=== PATIENT | male | born 1995 | race Caucasian/White ===

== ENCOUNTER 2023-05-21 13:28 | Outpatient (AMB) | payer OTHER, SELFPAY ==
--- NOTE | 2023-05-21 13:36 | MHC.PC.OV ---
Vital Signs 05/21/23 13:37 Height 5 ft 10 in Weight 144 lb BMI 20.7 BP 98/64 Blood Pressure Location Lt brachial Position Sitting Respiration 14 Pulse 81 Pulse Source Pulse Oximeter Pulse Oximetry (%) 99 Oxygen Delivery Method Room Air Intake Visit Reasons: CPE Intake Note: Patient is here for his physical today. Patient traveled to [place] saw a social welfare administrator in [place] in October 2022 and the social welfare administrator who stated he had scabies, the doctor prescribed a medication, dermabel 0.05% and the rash went away. Patient reports he has experienced allergies and itching rash again since January Upon return from [place]. Patient is requesting referral for neurologist. Patient reports the neurologist in [place] gave medications after finding something in his brain. The medication given is essitalopram 10mg film tablets propranolol 40mg tablets Sulpiride 50mg. ?The neurologist informed him he would need to see a neurologist every 3-6 months. Patient is requesting blood work- standard blood work plus vitamin levels. Patient reports he went to child life specialist and he was positive for pollen, dust, some trees, some animals. He was recommended to get shots. This was just an FYI. [employer] Required: No Accompanied by: Self / Same As Patient Allergies No Known Allergies Allergy (Verified 05/21/23 13:53) Tobacco use date assessed: 05/21/23 Dental Screening Dental Screen Date: 05/21/23 Did you have a dental visit in the last 12 months?: Yes Did you have a dental problem in the last 6 months where you did not have access to dental care?: No Was dental information given to patient?: Patient has dentist HPI CPE HPI Details 28 y/o male presents today for an extended exam but pt has acute issues he would like to discuss. Was recently in [place] from November to January. Complaints as above. Pt reports he had seen a neurologist in [place] and neurologist had found some atrophy in his brain. He was given escitalopram 10mg, propranolol 40mg and sulpiride 50mg. They had recommended him to f/u with Neurology. He reports ongoing tremors bilateral hands. He reports excessive fatigue. Pt has complaints of an ongoing rash. [facility] Medical History No pertinent past medical history Surgical History History of sleeve gastrectomy Family History (Updated 05/21/23 @ 13:54 by Dorita Wyatt CMA) Mother High blood pressure Father High blood pressure Diabetes Maternal Grandmother High blood pressure High cholesterol Paternal Grandmother High blood pressure High cholesterol Maternal Grandfather High blood pressure High cholesterol Cardiovascular disease Paternal Grandfather High blood pressure High cholesterol Social History (Updated 05/21/23 @ 13:56 by Dorita Wyatt CMA) Household Members: Friend(s) Housing: House 75 years or older and lives alone: No Alcohol intake: never Patient Tobacco Use Status: Never used Tobacco e-Cigarette/Vaping Use: Never Used Second Hand Smoke Exposure: No service: No Current occupational status: employed Current occupation: [employer] Current occupational exposures/hazards: No Sexual orientation: Unable to collect Gender identity: Unable to collect Cognitive needs: No Hearing needs: No Vision needs: No Questionnaire PHQ-9 Over the last 2 weeks, how often have you been bothered by any of the following problems? 1. Little interest or pleasure in doing things: not at all 2. Feeling down, depressed, or hopeless: not at all 3. Trouble falling or staying asleep, or sleeping too much: more than half the days 4. Feeling tired or having little energy: several days 5. Poor appetite or overeating: not at all 6. Feeling bad about yourself - or that you are a failure or have let yourself or your family down: not at all 7. Trouble concentrating on things, such as reading the newspaper or watching television: not at all 8. Moving or speaking so slowly that other people could have noticed. Or the opposite - being so fidgety or restless that you have been moving around a lot more than usual: not at all 9. Thoughts that you would be better off or of hurting yourself in some way: not at all Total score: 3 Depression Screening Interpretation: Negative Depression Screening Done: Yes 27314 - PHQ-9 Billing: Yes Source: Developed by Drs. Jacques Cleaning, Lavonne Colon, Marquis Black and colleagues, with an educational mario from [employer]. Thrive Questionnaire Date Thrive assessed: 10/29/22 CARO-7 AMB Questionnaire CARO-7 Date CARO - 7 assessed: 05/21/23 Feeling nervous, anxious, or on edge: 0 = Not at all Not being able to stop or control worryin = Not at all Worrying too much about different things: 1 = Several days Trouble relaxin = Not at all Being so restless that it is hard to sit still: 0 = Not at all Becoming easily annoyed or irritable: 1 = Several days Feeling afraid as if something awful might happen: 0 = Not at all Total CARO-7 score (0-4 normal; 5-9 mild; 10-14 moderate; 15-21 severe): 2 Source: Developed by Drs. Jacques Cleaning, Lavonne Colon, Marquis Black and colleagues, with an educational mario from [employer]. CARO-7 Assessment Billing CARO-7 Assessment Tool: CARO-7 Assessment 39825 Review of Systems Const Reports fatigue and Denies headache(s) ENT Denies dizziness and Denies headache(s) Card Denies dyspnea Resp Denies cough, Denies dyspnea, Denies wheezing and Denies other (shortness of breath) Musc Denies numbness and Denies tingling Skin/Breast Reports rash Neuro Denies dizziness, Denies headache(s), Denies numbness, Denies tingling and Reports tremor(s) Psych Denies anxiety and Denies depression Endo Reports fatigue Aller/Immun Denies wheezing Physical exam (Primary Care) Vital Signs: Last Vital Signs Pulse 81 05/21/23 13:37 Resp 14 05/21/23 13:37 BP 98/64 05/21/23 13:37 Pulse Ox 99 05/21/23 13:37 Oxygen Delivery Method Room Air 05/21/23 13:37 BMI result Body Mass Index 20.7 Tobacco/Smoking Status: Tobacco use Status Tobacco use date assessed 05/21/23 05/21/23 13:54 Patient Tobacco Use Status Never used Tobacco 05/21/23 13:56 e-Cigarette/Vaping Use Never Used 05/21/23 13:56 PHQ-9: PHQ-9 Score PHQ-9: Total score 3 05/21/23 14:00 Depression Screening Interpretation: Negative Thrive Assessment: Date of Thrive Assessment Date Thrive assessed 10/29/22 05/21/23 13:54 Const General: well developed; No acute distress Nutritional Appearance: well nourished Orientation/consciousness: patient oriented x3 HENMT Head: Yes normocephalic and Yes atraumatic Eyes General: appearance normal, both eyes and all related structures Pupils: Equal, round and reactive pupils present EOM: EOMs intact bilaterally Resp Effort & Inspection: normal respiratory effort Neuro General: patient oriented x3 and gait normal Cranial nerves: Yes Equal, round and reactive pupils present Psych Affect: normal affect Assessment and Plan Assessment & Plan (1) Tremor: Code(s): R25.1 - Tremor, unspecified Plan: Fine?resting?tremor No?other?focal?neurologic?deficits Patient?notes?recent?brain?imaging?in?[place]?showing?cerebral?atrophy. Referred?to?neurology Check?head?CT Will?refill?propranolol (2) Fatigue: Code(s): R53.83 - Other fatigue Plan: Check?labs (3) Depression: Code(s): F32.A - Depression, unspecified Plan: Patient?had?been?on?escitalopram?and?we?will?continue?the (4) Rash: Code(s): R21 - Rash and other nonspecific skin eruption Plan: Rash?over?much?of?patient's?body?including?palms?of?hands?and?interdigital?webbing. Probable?scabies Will?give?him?a?script?for?permethrin Referred?to?dermatology Orders: Orders Comprehensive [place]. Panel Fast Today Z00.00 - Encounter for general adult medical examination without abnormal findings TSH reflex Free T4 Today Z00.00 - Encounter for general adult medical examination without abnormal findings Syphilis Screen Today Z11.3 - Encounter for screening for infections with a predominantly sexual mode of transmission Hepatitis B,C Profile Today Z11.3 - Encounter for screening for infections with a predominantly sexual mode of transmission CT head/brain wo IV con Today R25.1 - Tremor, unspecified Complete Blood Count Auto Diff Today Z00.00 - Encounter for general adult medical examination without abnormal findings Lipid Panel Today Z00.00 - Encounter for general adult medical examination without abnormal findings Microalbumin, Random (w Creat) Today I10 - Essential (primary) hypertension UA and rflx microscopic Today Z00.00 - Encounter for general adult medical examination without abnormal findings Vitamin B12 and Folate Today E53.8 - Deficiency of other specified B group vitamins CT NG by PCR Today Z11.3 - Encounter for screening for infections with a predominantly sexual mode of transmission HIV Ab/Ag Today Z11.3 - Encounter for screening for infections with a predominantly sexual mode of transmission Vitamin D 25-OH Total Today E55.9 - Vitamin D deficiency, unspecified Referrals Neurology Referral G31.9 - Degenerative disease of nervous system, unspecified, R25.1 - Tremor, unspecified Dermatology Referral R21 - Rash and other nonspecific skin eruption Medications: New permethrin 5% apply second treatment 14 days after first treatment if scabies remain 1 appl topical Q14D 60 grams 1RF propranolol 40 mg PO BID 30 days 60 tabs 1RF escitalopram oxalate 10 mg PO DAILY 30 days 30 tabs 2RF Coding Level of Care Code Est Pt Level 4 (60649) Diagnoses Tremor R25.1 Fatigue R53.83 Depression F32.A Rash R21 Additional Codes CARO-7 Assessment Billing - CARO-7 Assessment Tool: CARO-7 Assessment 72117 ([id number])
[2023-05-21 13:37] VITALS: BP 98/64; PULSE 81; RESP 14; O2SAT 99; BMI 20.7
== END 2023-05-21 14:27 | disposition home or self-care (01) ==
PROVIDERS: PCP Family Medicine; Visit Provider Family Medicine
DX: R25.1 Tremor, unspecified (principal); R53.83 Other fatigue; F32.A Depression, unspecified; R21 Rash and other nonspecific skin eruption
CPT/HCPCS: 99214

== ENCOUNTER 2023-06-05 13:07 | Outpatient (REF) | payer OTHER, SELFPAY ==
--- NOTE | ~2023-06-05 | CT_ITS ---
EXAMINATION: CT HEAD WITHOUT CONTRAST CLINICAL INFORMATION: Tremor. COMPARISON: None. TECHNIQUE: Contiguous axial imaging was performed from the skullbase to vertex without intravenous administration of contrast. This CT examination was performed using dose optimization techniques as appropriate, variously including the following: *Automated exposure control *Adjustment of mA and/or kV according to patient size (this includes techniques or standardized protocols for targeted exams where dose is matched to indication/reason for exam; i.e. extremities or head) *Use of iterative reconstruction technique DLP: 881 mGy-cm. FINDINGS: There is no evidence of acute intracranial hemorrhage or territorial infarction. No abnormal mass effect or midline shift is seen. No extra-axial fluid collections are identified. There is moderate diffuse supratentorial brain parenchymal volume loss for patient age with concordant ex vacuo dilatation of the lateral and third ventricles. There is no abnormal attenuation within the brain parenchyma. The osseous structures and soft tissues are normal. The mastoid air cells and visualized portions of the paranasal sinuses are well aerated. CT/CT head/brain wo IV con IMPRESSION: No acute intracranial pathology. Moderate supratentorial brain parenchymal volume loss for patient age with concordant ex vacuo dilatation of the ventricles.
== END 2023-06-05 13:08 | disposition home or self-care (01) ==
LOC: HO.CT 13:07
PROVIDERS: Visit Provider Family Medicine
DX: R25.1 Tremor, unspecified (principal)
CPT/HCPCS: 70450

== ENCOUNTER 2023-06-17 11:27 | Outpatient (REF) | payer OTHER, SELFPAY ==
[2023-06-17 14:55] LABS: MANUAL DIFF FLAG NO
[2023-06-17 15:10] LABS: Basophils Percent Auto 0.7 % (0-2); Eosinophils Absolute Auto 0.2 X10*3/uL (0.0-0.4); Eosinophils Percent Auto 2.5 % (0-4); Hematocrit 44.3 % (42.0-52.0); Hemoglobin 14.4 g/dl (14.0-18.0); Imm Gran Abs Auto 0.01 X10*3/uL (0.00-0.03); Imm Gran Pct Auto 0.2 % (0.0-0.4); Lymphocytes Absolute Auto 2.2 X10*3/uL (1.2-4.9); Lymphocytes Percent Auto 36.6 % (20-40); Mean Corpuscular HGB Conc 32.5 g/dl (31.0-36.0); Mean Corpuscular Hemoglobin 27.4 pg (27.0-33.0); Mean Corpuscular Volume 84.4 fL (80.0-98.0); Mean Platelet Volume 10.4 fL (9.4-12.4); Monocytes Absolute Auto 0.6 X10*3/uL (0.1-1.2); Monocytes Percent Auto 9.7 % (2-11); Neutrophils Percent Auto 50.3 % (45-73); Platelet Count 268 X10*3/uL (160-400); Red Blood Count 5.25 X10*6/uL (4.60-5.80); Red Cell Distribution Width 13.6 % (11.0-16.0)
[2023-06-17 15:15] LABS: Appearance Urine Clear; Color Urine Yellow; Glucose Urine UA Negative (Negative); Leukocyte Esterase Urine Negative (Negative); Nitrite Urine Negative (Negative); PH 8.5 (5.0-9.0); UMIC TRIGGER UA YES; Urine Blood Small (1+) (Negative); Urine Ketones Negative (Negative); Urine Protein Negative (Neg-Trace)
[2023-06-17 15:18] LABS: Bacteria Urine None Seen (None Seen); Hyaline Casts Urine 0-2 /LPF (0-2); Squamous Epithelial Cell Urine 0-2 /HPF (0-2); WBC Urine 0-5 /HPF (0-5)
[2023-06-17 15:35] LABS: Alanine Aminotransferase 8 U/L (0-40); Albumin Level 4.7 g/dL (3.5-5.0); Alkaline Phosphatase 53 U/L (39-117); Anion Gap 13 (12-20); Aspartate Amino Transferase 18 U/L (5-37); Blood Urea Nitrogen 12 mg/dL (9-16); Calcium 10.2 mg/dL (8.4-10.2); Carbon Dioxide 27 mmol/L (22-29); Chloride 100 mmol/L (96-108); Cholesterol 142 mg/dL (<200); Estimated Glomerular Filt Rate > 60; Glucose Fasting 78 mg/dL (60-99); HDL Cholesterol 50 mg/dL (>40); LDL Cholesterol Calculated 77 mg/dL (<100); Potassium 4.2 mmol/L (3.3-5.1); Sodium 136 mmol/L (135-145); Total Protein 8.3 g/dL (6.5-8.0); Triglycerides 77 mg/dL (<150)
[2023-06-17 15:48] LABS: TSH reflex Free T4 1.84 uIU/mL (0.32-4.0); Vitamin D 25-OH Total 52.7 ng/mL (>30)
[2023-06-17 15:56] LABS: Folate 9.2 ng/mL (> or = 4.0); Vitamin B12 375 pg/mL (200-900)
[2023-06-17 16:19] LABS: Bilirubin Total 0.8 mg/dL (0.0-1.0)
[2023-06-17 16:22] LABS: Creatinine Urine 44.36 mg/dL; Microalbumin Urine < 5.0 mg/L
[2023-06-18 08:04] LABS: Syphilis Screen Reactive (Nonreactive)
[2023-06-18 08:12] LABS: HBS Num1 10.74 mIU/mL (0-7.99); HBc Num1 0.11 S/CO (0.00-0.79); HBsAGNum1 0.32 S/CO (0.00-0.99); HIV AB/AG Nonreactive (Nonreactive); HIV Num 1 0.08 S/CO (0.00-0.99); Hepatitis B Core Antibody Nonreactive (Nonreactive); Hepatitis B Surface Antigen Negative (Negative); ~HepC Num1 1.02 S/CO (0.00-0.79); ~Hepatitis C Antibody Reactive (Nonreactive)
[2023-06-18 10:46] LABS: HBS Num3 10.34 mIU/mL (0-7.99); ~Hepatitis B Surface Antibody GRAYZONE (Nonreactive)
[2023-06-23 15:02] LABS: RPR Quantitative Reactive 1:16 (Nonreactive)
[2023-06-23 15:03] LABS: T.Pallidum Particle Agg Test Reactive (Nonreactive)
== END 2023-06-17 11:28 | disposition home or self-care (01) ==
LOC: HO.WFDLDS 11:27
PROVIDERS: Visit Provider Family Medicine
DX: Z00.00 Encounter for general adult medical examination without abnormal findings (principal); Z11.3 Encounter for screening for infections with a predominantly sexual mode of transmission; Z11.4 Encounter for screening for human immunodeficiency virus [HIV]; E55.9 Vitamin D deficiency, unspecified; I10 Essential (primary) hypertension; E53.8 Deficiency of other specified B group vitamins
CPT/HCPCS: 36415; 80053; 80061; 81001; 81003; 82043; 82306; 82570; 82607; 82746; 84443; 85025; 86592; 86704; 86706; 86780; 86803; 87340; 87389

== ENCOUNTER 2023-06-30 11:35 | Outpatient (AMB) | payer OTHER, SELFPAY ==
[2023-06-30 11:58] VITALS: BP 125/75; PULSE 71; O2SAT 100; BMI 20.9
--- NOTE | 2023-06-30 11:58 | MHC.PC.OV ---
Vital Signs 06/30/23 11:58 Height 5 ft 10 in Weight 146 lb BMI 20.9 BP 125/75 Blood Pressure Location Lt brachial Position Sitting Pulse 71 Pulse Source Pulse Oximeter Pulse Oximetry (%) 100 Intake Visit Reasons: Extended exam with f/u labs and health maint. Intake Note: Patient is here for physical today. Allergies No Known Allergies Allergy (Verified 06/30/23 11:59) Tobacco use date assessed: 05/21/23 HPI Extended exam with f/u labs and health maint. HPI Details 28 y/o male presents for an extended exam with f/u labs and health maintenance. Labs were drawn 06/17/23. Reviewed labs with pt. Triglycerides 77. TC 142. LDL 77. HDL 50. Pt had complaints of fine resting tremor. Positive for T.pallidum. [facility] Medical History No pertinent past medical history Surgical History History of sleeve gastrectomy Family History (Updated 05/21/23 @ 13:54 by Dorita Wyatt CMA) Mother High blood pressure Father High blood pressure Diabetes Maternal Grandmother High blood pressure High cholesterol Paternal Grandmother High blood pressure High cholesterol Maternal Grandfather High blood pressure High cholesterol Cardiovascular disease Paternal Grandfather High blood pressure High cholesterol Social History (Updated 05/21/23 @ 13:56 by Dorita Wyatt CMA) Household Members: Friend(s) Housing: House 75 years or older and lives alone: No Alcohol intake: never Patient Tobacco Use Status: Never used Tobacco e-Cigarette/Vaping Use: Never Used Second Hand Smoke Exposure: No service: No Current occupational status: employed 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 Jacques Cleaning, Lavonne Colon, Marquis Black and colleagues, with an educational mario from [employer]. Review of Systems Const Denies chills, Denies fatigue, Denies fever(s), Denies headache(s) and Denies weakness Eyes Denies change in vision ENT Denies dizziness, Denies headache(s), Denies hearing loss, Denies nasal congestion, Denies sinus pain, Denies sinus pressure and Denies sore throat Card Denies chest pain, Denies lightheadedness, Denies dyspnea and Denies other (palpitations) Resp Denies cough, Denies dyspnea and Denies wheezing GI Denies abdominal pain, Denies melena, Denies hematochezia, Denies change in bowel habits, Denies dyspepsia and Denies nausea Denies hematuria and Denies dysuria Musc Denies abnormal gait, Denies myalgias, Denies arthralgias, Denies numbness and Denies tingling Skin/Breast Denies rash, Denies unusual bruising and Denies wounds Neuro Denies abnormal gait, Denies dizziness, Denies headache(s), Denies memory loss, Denies numbness, Denies Sensory deficit (Neuro), Denies tingling and Denies weakness Psych Denies anxiety, Denies depression and Denies memory loss Endo Denies cold intolerance, Denies fatigue, Denies heat intolerance, Denies polydipsia and Denies polyuria Denis/Lymph Denies easy bleeding and Denies easy bruising Aller/Immun Denies wheezing Physical exam (Primary Care) Vital Signs: Last Vital Signs Pulse 71 06/30/23 11:58 BP 125/75 06/30/23 11:58 Pulse Ox 100 06/30/23 11:58 BMI result Body Mass Index 20.9 Tobacco/Smoking Status: Tobacco use Status Tobacco use date assessed 05/21/23 06/30/23 12:02 Patient Tobacco Use Status Never used Tobacco 06/30/23 12:02 e-Cigarette/Vaping Use Never Used 06/30/23 12:02 Thrive Assessment: Date of Thrive Assessment Date Thrive assessed 10/29/22 06/30/23 12:02 Const General: no acute distress, well developed, alert and awake Nutritional Appearance: well nourished Orientation/consciousness: patient oriented x3 HENMT Head: Yes normocephalic and Yes atraumatic Ears: hearing grossly normal bilaterally and TM's normal bilaterally General nose exam: Normal external nose present and Normal nares present Mouth: Normal oral and palatal mucosa present and moist mucous membranes Teeth and gingiva: dentition normal Throat: Yes posterior oropharynx normal Eyes General: appearance normal, both eyes and all related structures Pupils: Equal, round and reactive pupils present and Pupil accommodation reflex normal EOM: EOMs intact bilaterally Neck Neck: Yes normal visual inspection, Yes no lymphadenopathy and Yes trachea midline Thyroid: Thyroid normal Carotids: no bruits Lymphatic: no lymphadenopathy noted Chest Chest palpation & inspection: normal inspection of the chest Resp Effort & Inspection: normal respiratory effort Auscultation: clear to auscultation bilaterally Cardio Rate: regular rate Rhythm: regular rhythm Heart sounds: S1 normal heart sound present, S2 normal heart sound present, no gallops, no murmurs and no rubs Bruits: no abdominal aortic bruits and no carotid bruits GI Palpation (GI): No Abdominal aortic bruit present, Soft to palpation, nontender, No hepatosplenomegaly present and No Rebound tenderness present Auscultation: normal bowel sounds General: Yes no CVA tenderness Back/Spine/Pelvis Back: no CVA tenderness Cervical Spine: cervical ROM normal and No Cervical spine tenderness Thoracic/Lumbar Spine: thoraco-lumbar ROM normal, No pain with thoraco-lumbar ROM, No thoracic spinal tenderness and No lumbar spinal tenderness Skin Lesions: no lesions Rashes: no rashes Trauma: no lacerations or abrasions Wounds: no wounds Nails: normal Neuro General: patient oriented x3 Cranial nerves: Yes Equal, round and reactive pupils present Cognition (Neuro): normal cognition Gait exam (Neuro): Normal gait present Motor exam (neuro): 5/5 motor strength present throughout Sensory Exam: No Sensory deficit (Neuro) Deep tendon reflexes (DTR's): Right patellar reflex intensity grade: 2+ and Left patellar reflex intensity grade: 2+ Extrem General: Yes normal to inspection and No edema Psych Appearance: grossly normal Affect: normal affect Attitude: cooperative Thought process: Normal thought process present Assessment and Plan Assessment & Plan (1) Syphilis (acquired): Code(s): A53.9 - Syphilis, unspecified Plan: RPR?positive Patient?has?an?appointment?with?infectious?disease?tomorrow. (2) Tremor: Code(s): R25.1 - Tremor, unspecified Plan: Patient?has?tremor?and?head?CT?showed?volume?loss. As?above,?patient?also?has?positive?RPR?and?concern?for?neurologic?symptoms Has?appointment?with?infectious?disease?and?also?has?an?appointment?with?Neurology. (3) Hepatitis C infection: Code(s): B19.20 - Unspecified viral hepatitis C without hepatic coma Plan: Hep?C?positive. He?is?referred?to?Gastroenterology?though?he?has?not?heard?back?from?them?yet.??I?gave?him?their?phone?number (4) Adult general medical exam: Code(s): Z00.00 - Encounter for general adult medical examination without abnormal findings Plan: 28-year-old?male?presents?for?an?extended?exam Coding Level of Care Code Est Pt Level 4 (81199) Diagnoses Syphilis (acquired) A53.9 Tremor R25.1 Hepatitis C infection B19.20 Adult general medical exam Z00.00
== END 2023-06-30 12:44 | disposition home or self-care (01) ==
PROVIDERS: PCP Family Medicine; Visit Provider Family Medicine
DX: A53.9 Syphilis, unspecified (principal); R25.1 Tremor, unspecified; B19.20 Unspecified viral hepatitis C without hepatic coma; Z00.00 Encounter for general adult medical examination without abnormal findings
CPT/HCPCS: 99214

== ENCOUNTER 2023-07-01 13:09 | Outpatient (AMB) | payer OTHER, SELFPAY ==
[2023-07-01 13:15] VITALS: PULSE 84; O2SAT 99; BMI 21.4
--- NOTE | 2023-07-01 13:15 | A.OFFVIS_ITS ---
Intake Vital Signs 3 07/01/23 13:15 Height 5 ft 10 in Weight 149 lb BMI 21.4 Pulse 84 Pulse Source Pulse Oximeter Pulse Oximetry (%) 99 Intake Visit Reasons: [place] [place]ph[place],unpecified Allergies No Known Allergies Allergy (Verified 07/01/23 13:18) HPI [place] [place]philis,unpecified 2 HPI0 Details He presents with positive syphilis titer at 1:16 on 06/17. I discussed with Sophia of [facility] and there is no prior titer. He denies prior syphilis but says had rash for about a year in [place]. He has only lip sore now. He describes leg numbness/?neuropathy to PCP and had CT scan which showed some volume loss so there was concern over neurosyphilis. He has no hearing loss or visual changes. He is HIV negative but Hepatitis C positive and Hepatitis B antibody slightly reactive. He is interested in Prep. [facility] Medical History (Updated 07/01/23 @ 16:55 by Elyssa Cruz MD) Encounter for pre-exposure prophylaxis for HIV No pertinent past medical history Surgical History History of sleeve gastrectomy Family History Mother High blood pressure Father High blood pressure Diabetes Maternal Grandmother High blood pressure High cholesterol Paternal Grandmother High blood pressure High cholesterol Maternal Grandfather High blood pressure High cholesterol Cardiovascular disease Paternal Grandfather High blood pressure High cholesterol Social History (Updated 05/21/23 @ 13:56 by Dorita Wyatt CMA) Household Members: Friend(s) Housing: House 75 years or older and lives alone: No Alcohol intake: never Patient Tobacco Use Status: Never used Tobacco e-Cigarette/Vaping Use: Never Used Second Hand Smoke Exposure: No service: No Current occupational status: employed 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 Current occupational exposures/hazards: No Sexual orientation: Unable to collect Gender identity: Unable to collect Cognitive needs: No Hearing needs: No Vision needs: No Review of Systems Const All systems reviewed & are unremarkable except as noted in HPI and below Physical Exam Vital Signs: Last Vital Signs Pulse 84 07/01/23 13:15 Pulse Ox 99 07/01/23 13:15 BMI result Body Mass Index 21.4 Const General: cooperative Orientation/consciousness: patient oriented x3 HEENT Head: Yes normal to inspection Ears: hearing grossly normal bilaterally and no periauricular adenopathy Mouth: Normal oral and palatal mucosa present Mouth/tongue images: 2 1. yellow/red lesion on lip Eyes General: appearance normal, both eyes and all related structures Pupils: Equal, round and reactive pupils present Resp Effort & Inspection: normal respiratory effort Cardio Rate: regular rate Rhythm: regular rhythm GI Palpation (GI): Soft to palpation and nontender General: Yes no CVA tenderness Back/Spine/Pelvis Back: no CVA tenderness Skin General skin exam: no rashes or lesions noted Neuro Other: nonfocal General: patient oriented x3 Cranial nerves: Yes CN's II-XII intact bilaterally and Yes Equal, round and reactive pupils present Extrem General: Yes normal to inspection Psych Appearance: grossly normal Assessment & Plan Assessment & Plan (1) Syphilis (acquired): Comment: No definite signs of neurosyphilis and patient declines LP Treat for latent syphilis with PCN 2.4 mU weekly x3. Check titer in three months Code(s): A53.9 - Syphilis, unspecified Plan: n/a (2) Hepatitis C infection: Comment: Not sure of activity Code(s): B19.20 - Unspecified viral hepatitis C without hepatic coma Plan: Check Hepatitis C viral load and fibrosis score (3) Encounter for pre-exposure prophylaxis for HIV: Code(s): Z29.81 - Encounter for HIV pre-exposure prophylaxis Plan: Truvada daily Check HIV test in three months. Orders: Orders 2 Syphilis Screen 3 Months A53.9 - Syphilis, unspecified Liver Fibrosis Pnl Today B19.20 - Unspecified viral hepatitis C without hepatic coma Hepatitis C Viral Load Today B19.20 - Unspecified viral hepatitis C without hepatic coma HIV Ab/Ag 3 Months A53.9 - Syphilis, unspecified Medications: New 2 penicillin G benzathine 2.4 mmu (4 mL) IM QWEEK 12 mL 0RF syphilis emtricitabine-tenofovir (TDF) 200-300 mg (Truvada) 1 tab PO DAILY 30 days 30 tabs 2RF penicillin G benzathine 2.4 mmu (4 mL) IM QWEEK 12 mL 0RF syphilis Coding Level of Care Code New Pt Level 3 (41396) Diagnoses Syphilis (acquired) A53.9 Hepatitis C infection B19.20 Encounter for pre-exposure prophylaxis for HIV Z29.81
== END 2023-07-01 14:17 | disposition home or self-care (01) ==
PROVIDERS: PCP Family Medicine; Visit Provider Internal Medicine
DX: A53.9 Syphilis, unspecified (principal); B19.20 Unspecified viral hepatitis C without hepatic coma; Z29.81 Encounter for HIV pre-exposure prophylaxis
CPT/HCPCS: 99203

== ENCOUNTER → 2023-07-01 13:09 | Outpatient (BNVA) | payer OTHER, SELFPAY | PROVIDERS: PCP Family Medicine; Visit Provider Internal Medicine | DX: A53.9 Syphilis, unspecified (principal); B19.20 Unspecified viral hepatitis C without hepatic coma; Z29.81 Encounter for HIV pre-exposure prophylaxis | CPT/HCPCS: 99202 ==

== ENCOUNTER 2023-07-08 13:17 | Outpatient (AMB) | payer OTHER, SELFPAY ==
[2023-07-08 13:41] VITALS: BP 104/70; PULSE 77; O2SAT 99; BMI 21.5
--- NOTE | 2023-07-08 13:41 | AM.OFFVISNUR ---
Intake Vital Signs 07/08/23 13:41 Height 5 ft 10 in Weight 68.039 kg BMI 21.5 BP 104/70 Blood Pressure Location Lt brachial Position Sitting Pulse 77 Pulse Source Pulse Oximeter Pulse Oximetry (%) 99 Intake Visit Reasons: Penicillin injection Allergies No Known Allergies Allergy (Verified 07/08/23 13:47) Coding
== END 2023-07-08 14:27 | disposition home or self-care (01) ==
PROVIDERS: PCP Family Medicine; Visit Provider Internal Medicine
DX: A53.9 Syphilis, unspecified (principal)

== ENCOUNTER → 2023-07-08 13:17 | Outpatient (BNVA) | payer OTHER, SELFPAY | PROVIDERS: PCP Family Medicine; Visit Provider Internal Medicine | DX: A53.9 Syphilis, unspecified (principal) | CPT/HCPCS: 96372; J0561 ==

== ENCOUNTER → 2023-07-15 13:21 | Outpatient (BNVA) | payer OTHER, SELFPAY | PROVIDERS: PCP Family Medicine; Visit Provider Internal Medicine ==

== ENCOUNTER 2023-07-22 13:28 | Outpatient (AMB) | payer OTHER, SELFPAY ==
[2023-07-22 13:35] VITALS: BP 130/80; PULSE 98; O2SAT 99; BMI 21.2
--- NOTE | 2023-07-22 13:35 | AM.OFFVISNUR ---
Intake Vital Signs 07/22/23 13:35 Height 5 ft 10 in Weight 67.132 kg BMI 21.2 BP 130/80 Blood Pressure Location Lt brachial Position Sitting Pulse 98 Pulse Source Pulse Oximeter Pulse Oximetry (%) 99 Intake Visit Reasons: Penicillin injection Allergies No Known Allergies Allergy (Verified 07/22/23 13:36) Coding
== END 2023-07-22 14:00 | disposition home or self-care (01) ==
LOC: HO.HID 13:28
PROVIDERS: PCP Family Medicine; Visit Provider Internal Medicine
DX: A53.9 Syphilis, unspecified (principal)

== ENCOUNTER → 2023-07-22 13:28 | Outpatient (BNVA) | payer OTHER, SELFPAY | PROVIDERS: PCP Family Medicine; Visit Provider Internal Medicine | DX: A53.9 Syphilis, unspecified (principal) | CPT/HCPCS: 96372; J0561 ==

== ENCOUNTER 2023-08-12 13:15 | Outpatient (REF) | payer OTHER, SELFPAY ==
[2023-08-12 18:21] LABS: Appearance Urine Clear; Color Urine Yellow; Glucose Urine UA Negative (Negative); Leukocyte Esterase Urine Negative (Negative); Nitrite Urine Negative (Negative); PH 8.5 (5.0-9.0); Urine Blood Negative (Negative); Urine Ketones Negative (Negative); Urine Protein Negative (Neg-Trace)
[2023-08-13 08:25] LABS: HBS Num1 11.27 mIU/mL (0-7.99); HBc Num1 0.14 S/CO (0.00-0.79); HBsAGNum1 0.37 S/CO (0.00-0.99); Hepatitis B Core Antibody Nonreactive (Nonreactive); Hepatitis B Surface Antigen Negative (Negative)
[2023-08-13 10:06] LABS: HBS Num3 12.24 mIU/mL (0-7.99); ~Hepatitis B Surface Antibody GRAYZONE (Nonreactive)
[2023-08-14 15:22] LABS: HCV RNA PCR Qn <1.18 NOT DETECTED Log IU/mL (NOT DETECTED); HCV RNA PCR Qn <15 NOT DETECTED IU/mL (NOT DETECTED)
[2023-08-15 07:28] LABS: HCV Log PCR <1.18 NOT DETECTED Log IU/mL (NOT DETECTED); HepC Viral Load <15 NOT DETECTED IU/mL (NOT DETECTED)
[2023-08-15 12:18] LABS: Hepatitis B Viral DNA Qn - cp NOT DETECTED Log IU/mL (NOT DETECTED); Hepatitis B Viral DNA Qn-IU/mL NOT DETECTED (NOT DETECTED)
[2023-08-20 17:32] LABS: FIB-ALT 6 U/L (9-46); FIB-Alpha-2-Macroglobulin 244 mg/dL (106-279); FIB-Apolipoprotein A1 179 mg/dL (94-176); FIB-GGT 11 U/L (3-70); FIB-Haptoglobin 102 mg/dL (43-212); FIB-Total Bilirubin 0.5 mg/dL (0.2-1.2); Liver Fibrosis Stage F0; Nec Inflam Act Grade A0; Nec Inflam Act Score 0.01
== END 2023-08-12 13:16 | disposition home or self-care (01) ==
LOC: HO.LAB 13:15
PROVIDERS: Internal Medicine; PCP Family Medicine; Visit Provider Internal Medicine
DX: Z00.00 Encounter for general adult medical examination without abnormal findings (principal); B19.20 Unspecified viral hepatitis C without hepatic coma; G25.0 Essential tremor
CPT/HCPCS: 36415; 81003; 81596; 86704; 86706; 87340; 87517; 87522; 99202

== ENCOUNTER 2023-08-12 13:15 | Outpatient (AMB) | payer OTHER, SELFPAY ==
--- NOTE | 2023-08-12 13:17 | A.OFFVIS_ITS ---
Intake Vital Signs 08/12/23 13:20 Height 5 ft 10 in Weight 145 lb 8.081 oz BMI 20.9 BP 147/66 H Blood Pressure Location Lt brachial Position Supine Pulse 84 Intake Visit Reasons: Unspecified viral hepatitis C without hepatic coma Intake Note: Frankie presents in the office as a new patient for Hep C w/o hepatic coma. CC: He states that he is having a fever at times and he feels very fatigued with a headache. States his skin is itchy. Pains in the right side. His body bruises very quickly. 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 Pt is originally from [place] and suspects contracted HCV sexually. No reported IVDU or blood transfusions. Currently no abd pain, N,V. Has been seen by ID and underwent tx for syphilis. HCV viral load ordered and fibrosure ordered but pt has not been to the lab yet. [facility] Medical History (Updated 08/12/23 @ 14:11 by Helen Howell MD) Encounter for pre-exposure prophylaxis for HIV No pertinent past medical history Surgical History (Updated 08/12/23 @ 13:21 by PRAVIN Kwon) Hx of colonoscopy History of esophagogastroduodenoscopy (EGD) History of sleeve gastrectomy Family History Mother High blood pressure Father High blood pressure Diabetes Maternal Grandmother High blood pressure High cholesterol Paternal Grandmother High blood pressure High cholesterol Maternal Grandfather High blood pressure High cholesterol Cardiovascular disease Paternal Grandfather High blood pressure High cholesterol Social History Household Members: Friend(s) Housing: House 75 years or older and lives alone: No Alcohol intake: never Patient Tobacco Use Status: Never used Tobacco e-Cigarette/Vaping Use: Never Used Second Hand Smoke Exposure: No service: No Current occupational status: employed 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 Current occupational exposures/hazards: No Sexual orientation: Unable to collect Gender identity: Unable to collect Cognitive needs: No Hearing needs: No Vision needs: No Review of Systems Const All systems reviewed & are unremarkable except as noted in HPI and below Physical Exam Vital Signs: Last Vital Signs Pulse 84 08/12/23 13:20 BP 147/66 H 08/12/23 13:20 BMI result Body Mass Index 20.9 Gen appear: NAD HEENT: nonicteric, no cervical lymphadenopathy Chest: CTA CVS: Regular S1/S2 Abd: soft, nontender, nondistended, bowel sounds + Ext: no peripheral edema Neuro: A/Ox3, noted to move all extremities spontaneously Psych: interacting appropriately Assessment & Plan Assessment & Plan (1) Hepatitis C infection: Code(s): B19.20 - Unspecified viral hepatitis C without hepatic coma Plan: Likely sexually contracted based on pt's hx. Plan: - HCV viral load and reflex to genotype - Fibrosure pending - US Abd ordered - HBV serologies re-ordered along with HBV dna Follow up contingent on above (2) Essential tremor: Code(s): G25.0 - Essential tremor Plan: Pt also noticed to have fine essential tremors on exam. Reassured that likely not related to HCV (if chronic) can check with ID for ? neurosyphilis but most consistent with benign essential tremor. Orders: Orders Hepatitis B Viral DNA Qn Today B19.20 - Unspecified viral hepatitis C without hepatic coma Hepatitis B Surface Antigen Today B19.20 - Unspecified viral hepatitis C without hepatic coma US abdomen complete Today B19.20 - Unspecified viral hepatitis C without hepatic coma HCV RNA QN PROG TO GENOTYPE Today B19.20 - Unspecified viral hepatitis C without hepatic coma Hepatitis B Core Antibody Today B19.20 - Unspecified viral hepatitis C without hepatic coma Hepatitis B Surface Antibody Today B19.20 - Unspecified viral hepatitis C without hepatic coma Coding Level of Care Code New Pt Level 4 (41409) Diagnoses Hepatitis C infection B19.20 Essential tremor G25.0
[2023-08-12 13:20] VITALS: BP 147/66; PULSE 84; BMI 20.9
== END 2023-08-12 14:25 | disposition home or self-care (01) ==
PROVIDERS: PCP Family Medicine; Visit Provider Internal Medicine
DX: B19.20 Unspecified viral hepatitis C without hepatic coma (principal); G25.0 Essential tremor
CPT/HCPCS: 99204

== ENCOUNTER 2023-08-26 08:30 | Outpatient (REF) | payer OTHER, SELFPAY ==
--- NOTE | ~2023-08-26 | US_ITS ---
EXAMINATION: US ABDOMEN COMPLETE CLINICAL INFORMATION: Unspecified viral hepatitis C without hepatic coma. COMPARISON: None available. TECHNIQUE: Real-time imaging of the abdominal viscera. FINDINGS: PANCREAS: Normal. ABDOMINAL AORTA: The proximal, mid, and distal segments are normal in caliber. INFERIOR VENA CAVA: Visualized portions are normal. LIVER: The liver is borderline enlarged, with a longitudinal span of 17.0 cm. The liver contour is normal. There is slightly increased liver parenchymal echogenicity. No focal hepatic lesion. There is no intrahepatic biliary duct dilatation seen. GALLBLADDER: 6 mm and 3 mm nonmobile polyps are seen. The gallbladder is physiologically distended without evidence of stones, sludge, wall thickening or pericholecystic fluid. COMMON BILE DUCT: Normal in caliber measuring 0.3 cm in diameter. RIGHT KIDNEY: Normal. No hydronephrosis. No renal calculi or focal parenchymal lesions. The kidney measures 11.0 cm in maximum dimension. LEFT KIDNEY: At the lateral aspect, a 1.3 cm benign, simple cyst is seen, for which no imaging follow-up is recommended. No hydronephrosis or renal calculi. The kidney measures 11.1 cm in maximum dimension. SPLEEN: Normal. The spleen measures 12.5 cm in maximum dimension. FREE FLUID: None. US/US abdomen complete IMPRESSION: 1. There is borderline hepatomegaly. As well, the spleen is upper normal in size. 2. There is slight generalized increase in hepatic echotexture, consistent with fatty infiltration or hepatocellular disease. Please correlate clinically. No focal hepatic mass or intrahepatic biliary dilatation is seen. 3. 6 mm and 3 mm nonmobile gallbladder polyps are seen. As a precaution, recommend repeat abdominal ultrasound examination in 6 months to ensure stability of this finding.
== END 2023-08-26 08:31 | disposition home or self-care (01) ==
LOC: HO.US 08:30
PROVIDERS: PCP Family Medicine; Visit Provider Internal Medicine
DX: Z23 Encounter for immunization (principal); B19.20 Unspecified viral hepatitis C without hepatic coma
CPT/HCPCS: 76700; 90471; 90746; 99211

== ENCOUNTER 2023-08-26 13:19 | Outpatient (AMB) | payer OTHER, SELFPAY ==
--- NOTE | 2023-08-26 13:54 | AM.OFFVISNUR ---
Intake Intake Visit Reasons: Hep B #1 Allergies No Known Allergies Allergy (Verified 08/12/23 13:21) Immunizations Engerix-B (PF) 20 mcg/mL intramuscular suspension Performing Provider: Helen Howell MD Performing Location: [facility] [place] [facility] Administered by: Ivette Chilel RN on 08/26/23 13:56 Dose Route Admin Location Dispensed Lot Number Expiration Date ND Glove Brusher 1 mL IM Left Deltoid 1 mL [id number] 04/30/25 23350-524-18 Delivery Club VIS Given Date VIS Provided VIS Publication Date 08/26/23 Single Vaccine 22 Eligibility Eligibility Date Funding Source Not [facility] Eligible 08/26/23 Private Coding Level of Care Code Established Pt Est Pt Level 1 (54706) Patient Type Established Medical Decision Making Straight Forward Assessment & Plan Assessment & Plan Orders: Orders Hepatitis B Adult Immunization Today Z23 - Encounter for immunization
== END 2023-08-26 13:57 | disposition home or self-care (01) ==
PROVIDERS: PCP Family Medicine; Visit Provider Internal Medicine
DX: Z23 Encounter for immunization (principal)

== ENCOUNTER 2023-09-01 15:23 | Outpatient (AMB) | payer OTHER, SELFPAY ==
--- NOTE | 2023-09-01 16:09 | A.OFFPC_ITS ---
Vital Signs 09/01/23 16:10 Height 5 ft 10 in Weight 149 lb 4 oz BMI 21.4 BP 118/64 Blood Pressure Location Lt brachial Position Sitting Pulse 86 Pulse Source Pulse Oximeter Pulse Oximetry (%) 99 Oxygen Delivery Method Room Air Intake Visit Reasons: f/u chronic conditions Intake Note: Patient is here for a follow up today. Patient complains of headache, fever, and fainting. on some days. Allergies No Known Allergies Allergy (Verified 09/01/23 16:11) Tobacco use date assessed: 09/01/23 Dental Screening Dental Screen Date: 09/01/23 Did you have a dental visit in the last 12 months?: No Did you have a dental problem in the last 6 months where you did not have access to dental care?: No Was dental information given to patient?: Patient has dentist HPI f/u chronic conditions HPI Details 28 y/o male presents to f/u chronic cond itions. Follows up with infectious disease and gastroenterology for hepatitis C. He has an appt. with both specialists in September. Pt reports ongoing tremors, unchanged. [facility] Medical History (Updated 09/01/23 @ 16:36 by Franko Powell) Encounter for pre-exposure prophylaxis for HIV No pertinent past medical history Surgical History (Updated 08/12/23 @ 13:21 by PRAVIN Kwon) Hx of colonoscopy History of esophagogastroduodenoscopy (EGD) History of sleeve gastrectomy Family History Mother High blood pressure Father High blood pressure Diabetes Maternal Grandmother High blood pressure High cholesterol Paternal Grandmother High blood pressure High cholesterol Maternal Grandfather High blood pressure High cholesterol Cardiovascular disease Paternal Grandfather High blood pressure High cholesterol Social History Household Members: Friend(s) Housing: House 75 years or older and lives alone: No Alcohol intake: never Patient Tobacco Use Status: Never used Tobacco e-Cigarette/Vaping Use: Never Used Second Hand Smoke Exposure: No service: No Current occupational status: employed 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 1. Little interest or pleasure in doing things: not at all 2. Feeling down, depressed, or hopeless: not at all 3. Trouble falling or staying asleep, or sleeping too much: not at all 4. Feeling tired or having little energy: not at all 5. Poor appetite or overeating: not at all 6. Feeling bad about yourself - or that you are a failure or have let yourself or your family down: not at all 7. Trouble concentrating on things, such as reading the newspaper or watching television: not at all 8. Moving or speaking so slowly that other people could have noticed. Or the opposite - being so fidgety or restless that you have been moving around a lot more than usual: not at all 9. Thoughts that you would be better off or of hurting yourself in some way: not at all Total score: 0 Depression Screening Interpretation: Negative Depression Screening Done: Yes Source: Developed by Drs. Jacques Cleaning, Lavonne Colon, Marquis Black and colleagues, with an educational mario from [employer]. Thrive Questionnaire Date Thrive assessed: 09/01/23 I am a: Patient What is your living situation today?: I have a steady place to live Within the past 12 months, did the food you bought not last and you didn't have the money to get more?: Never true Within the past 12 months, did you worry whether your food would run out before you got money to buy more?: Never true Do you have trouble paying for medicines?: No Do you have trouble getting transportation to medical appointments?: No Do you have trouble paying your heating and electricity bill?: No Do you have trouble taking care of your child, family member or friend?: No Do you have trouble with day-to-day activities such as bathing, preparing meals, shopping, managing finances, etc.?: No Are you currently unemployed and looking for a job?: No Are you interested in more education?: No THRIVE Score: 0 AUDIT C Alcohol Use Questionnaire (AUDIT-C) 1. How often do you have a drink containing alcohol?: Never 3. How often do you have six or more drinks on one occasion?: Never Total Score: 0 CARO-7 AMB Questionnaire CARO-7 Date CARO - 7 assessed: 09/01/23 Feeling nervous, anxious, or on edge: 0 = Not at all Not being able to stop or control worryin = Not at all Worrying too much about different things: 0 = Not at all Trouble relaxin = Not at all Being so restless that it is hard to sit still: 0 = Not at all Becoming easily annoyed or irritable: 0 = Not at all Feeling afraid as if something awful might happen: 0 = Not at all Total CARO-7 score (0-4 normal; 5-9 mild; 10-14 moderate; 15-21 severe): 0 Source: Developed by Drs. Jacques Cleaning, Lavonne Colon, Marquis Black and colleagues, with an educational mario from [employer]. Review of Systems Const Denies chills, Denies fatigue, Denies fever(s), Denies headache(s) and Denies weakness ENT Denies dizziness and Denies headache(s) Card Denies chest pain, Denies lightheadedness, Denies dyspnea and Denies other (Palpitations) Resp Denies cough, Denies dyspnea, Denies wheezing and Denies other ( shortness of breath) Musc Denies numbness and Denies tingling Neuro Denies dizziness, Denies headache(s), Denies numbness, Denies tingling, Denies paresthesias and Denies weakness Psych Denies anxiety and Denies depression Endo Denies fatigue Aller/Immun Denies wheezing Physical exam (Primary Care) Vital Signs: Last Vital Signs Pulse 86 09/01/23 16:10 BP 118/64 09/01/23 16:10 Pulse Ox 99 09/01/23 16:10 Oxygen Delivery Method Room Air 09/01/23 16:10 BMI result Body Mass Index 21.4 Tobacco/Smoking Status: Tobacco use Status Tobacco use date assessed 09/01/23 09/01/23 16:12 Patient Tobacco Use Status Never used Tobacco 09/01/23 16:12 e-Cigarette/Vaping Use Never Used 09/01/23 16:12 PHQ-9: PHQ-9 Score PHQ-9: Total score 0 09/01/23 16:36 Depression Screening Interpretation: Negative Thrive Assessment: Date of Thrive Assessment Date Thrive assessed 09/01/23 09/01/23 16:18 Const General: no acute distress and well developed Nutritional Appearance: well nourished Orientation/consciousness: patient oriented x3 [facility] Head: Yes normocephalic and Yes atraumatic Eyes General: appearance normal, both eyes and all related structures Pupils: Equal, round and reactive pupils present EOM: EOMs intact bilaterally Resp Effort & Inspection: normal respiratory effort Auscultation: clear to auscultation bilaterally Cardio Rate: regular rate Rhythm: regular rhythm Heart sounds: S1 normal heart sound present, S2 normal heart sound present, no gallops, no murmurs and no rubs Neuro General: patient oriented x3 and gait normal Cranial nerves: Yes Equal, round and reactive pupils present Psych Affect: normal affect Assessment and Plan Assessment & Plan (1) Syphilis (acquired): Code(s): A53.9 - Syphilis, unspecified Plan: Now?s/p?treatment?with?penicillin Concurrent?hepatitis?C?infection?and?he?is?on?HIV?prophylaxis Follow-up?with?infectious?disease?as?recommended (2) Hepatitis C infection: Code(s): B19.20 - Unspecified viral hepatitis C without hepatic coma Plan: Workup?is?underway?with?gastroenterology. Also?receiving?hepatitis-B?vaccination Follow-up?with?Gastroenterology?as?recommended (3) Tremor: Code(s): R25.1 - Tremor, unspecified Plan: Still?has?ongoing?tremor He?has?an?appointment?with?Neurology?in?May Coding Level of Care Code Est Pt Level 3 (60256) Diagnoses Syphilis (acquired) A53.9 Hepatitis C infection B19.20 Tremor R25.1
[2023-09-01 16:10] VITALS: BP 118/64; PULSE 86; O2SAT 99; BMI 21.4
== END 2023-09-01 16:43 | disposition home or self-care (01) ==
PROVIDERS: PCP Family Medicine; Visit Provider Family Medicine
DX: A53.9 Syphilis, unspecified (principal); B19.20 Unspecified viral hepatitis C without hepatic coma; R25.1 Tremor, unspecified
CPT/HCPCS: 99213

== ENCOUNTER 2023-09-23 13:15 | Outpatient (AMB) | payer OTHER, SELFPAY ==
--- NOTE | 2023-08-26 13:53 | AM.OFFVISNUR ---
Intake Intake Visit Reasons: Hep B #2 Allergies No Known Allergies Allergy (Verified 08/12/23 13:21) Coding
== END 2023-09-23 13:36 | disposition home or self-care (01) ==
PROVIDERS: PCP Family Medicine; Visit Provider Internal Medicine
DX: Z23 Encounter for immunization (principal)

== ENCOUNTER → 2023-09-23 13:15 | Outpatient (BNVA) | payer OTHER, SELFPAY | PROVIDERS: PCP Family Medicine; Visit Provider Internal Medicine | DX: Z23 Encounter for immunization (principal) | CPT/HCPCS: 90471; 90746 ==

== ENCOUNTER 2023-09-24 10:45 | Outpatient (REF) | payer OTHER, SELFPAY ==
[2023-09-24 11:54] LABS: HIV AB/AG Nonreactive (Nonreactive); HIV Num 1 0.05 S/CO (0.00-0.99)
[2023-09-24 12:06] LABS: Syphilis Screen Reactive (Nonreactive)
[2023-09-29 15:20] LABS: RPR Quantitative Reactive 1:16 (Nonreactive); T.Pallidum Particle Agg Test Reactive (Nonreactive)
== END 2023-09-24 10:46 | disposition home or self-care (01) ==
LOC: HO.LAB 10:45
PROVIDERS: PCP Family Medicine; Visit Provider Internal Medicine
DX: Z11.4 Encounter for screening for human immunodeficiency virus [HIV] (principal); A53.9 Syphilis, unspecified
CPT/HCPCS: 36415; 86592; 86780; 87389

== ENCOUNTER 2023-09-30 12:59 | Outpatient (AMB) | payer OTHER, SELFPAY ==
[2023-09-30 13:08] VITALS: PULSE 84; O2SAT 99; BMI 22.4
--- NOTE | 2023-09-30 13:08 | A.OFFVIS_ITS ---
Vital Signs 09/30/23 13:08 Height 5 ft 10 in Weight 156 lb BMI 22.4 Pulse 84 Pulse Source Pulse Oximeter Pulse Oximetry (%) 99 Oxygen Delivery Method Room Air Intake Visit Reasons: f/u 3 mth,lab Allergies No Known Allergies Allergy (Verified 09/30/23 13:08) HPI HPI f/u 3 mth,lab: Details: He is here for followup syphilis. He was treated with three doses he says PCN for titer of 1:16 on 06/17. He was tested again and had titer 1:16 on 09/24/2023 still. He has Hepatitis C viral load negative and HIV negative. He has no symptoms with no fever or rashes or trouble with hearing or vision. [facility] Medical History Encounter for pre-exposure prophylaxis for HIV No pertinent past medical history Surgical History Hx of colonoscopy History of esophagogastroduodenoscopy (EGD) History of sleeve gastrectomy Family History Mother High blood pressure Father High blood pressure Diabetes Maternal Grandmother High blood pressure High cholesterol Paternal Grandmother High blood pressure High cholesterol Maternal Grandfather High blood pressure High cholesterol Cardiovascular disease Paternal Grandfather High blood pressure High cholesterol Social History Household Members: Friend(s) Housing: House 75 years or older and lives alone: No Alcohol intake: never Patient Tobacco Use Status: Never used Tobacco e-Cigarette/Vaping Use: Never Used Second Hand Smoke Exposure: No service: No Current occupational status: employed 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 Current occupational exposures/hazards: No Sexual orientation: Unable to collect Gender identity: Unable to collect Cognitive needs: No Hearing needs: No Vision needs: No Review of Systems Const All systems reviewed & are unremarkable except as noted in HPI and below Physical Exam Vital Signs: Last Vital Signs Pulse 84 09/30/23 13:08 Pulse Ox 99 09/30/23 13:08 Oxygen Delivery Method Room Air 09/30/23 13:08 BMI result Body Mass Index 22.4 Const General: cooperative HEENT Head: Yes normal to inspection Face and sinus: Yes normal facial exam Mouth: Normal oral and palatal mucosa present Teeth and gingiva: dentition normal Eyes General: appearance normal, both eyes and all related structures Pupils: Equal, round and reactive pupils present Resp Effort & Inspection: normal respiratory effort Cardio Rate: regular rate Rhythm: regular rhythm GI Palpation (GI): Soft to palpation and nontender General: Yes no CVA tenderness Back/Spine/Pelvis Back: no CVA tenderness Skin General skin exam: no rashes or lesions noted Neuro General: moves all extremities Cranial nerves: Yes Equal, round and reactive pupils present Extrem General: Yes normal to inspection Psych Appearance: grossly normal Office Meds penicillin G benzathine 2,400,000 unit/4 mL intramuscular syringe Performing Provider: Elyssa Cruz MD Performing Location[place] [facility] Administered by: Thuy Her on 09/30/23 14:17 Dose Route Admin Location Dispensed Lot Number Expiration Date NDC Field Cane Scaler Helper 2.4 mmu IM LGM 4 mL [id number] 02/21/26 [id number] [employer] Assessment & Plan Assessment & Plan (1) Syphilis (acquired): Code(s): A53.9 - Syphilis, unspecified Category: Medical Plan A single injection of penicillin and then check titer again in three months. If titer not less then 1:16 would check LP for neurosyphilis (patient aware). Continue Truvada for PRep Orders: Orders HIV Ab/Ag 3 Months A53.9 - Syphilis, unspecified RPR Monitor reflex titer 1 Month A53.9 - Syphilis, unspecified AMB Penicillin Injection 09/30/23 A53.9 - Syphilis, unspecified Medications: New penicillin G benzathine 2.4 mmu IM QWEEK 1 day 1 ea 0RF penicillin G benzathine 2.4 mmu IM QWEEK 1 day 1 ea 0RF Coding Level of Care Code Est Pt Level 3 (09909) Diagnoses Syphilis (acquired) A53.9
== END 2023-09-30 14:06 | disposition home or self-care (01) ==
PROVIDERS: PCP Family Medicine; Visit Provider Internal Medicine
DX: A53.9 Syphilis, unspecified (principal)
CPT/HCPCS: 99213

== ENCOUNTER → 2023-09-30 12:59 | Outpatient (BNVA) | payer OTHER, SELFPAY | PROVIDERS: PCP Family Medicine; Visit Provider Internal Medicine | DX: A53.9 Syphilis, unspecified (principal) | CPT/HCPCS: 96372; 99212; J0561 ==

== ENCOUNTER 2023-10-08 07:30 | Outpatient (AMB) | payer OTHER, SELFPAY ==
[2023-10-08 07:49] VITALS: BP 118/78; BMI 22.0
--- NOTE | 2023-10-08 07:49 | MHC.OFFVIS ---
Vital Signs 10/08/23 07:49 Height 5 ft 10 in Weight 153 lb BMI 22.0 BP 118/78 Blood Pressure Location Rt brachial Position Sitting Intake Visit Reasons: INP-Tremor/Degen dis of nerv - CONF Intake Note: Patient presents for tremors. Patient had nerologist in [place] for tremors and hand shake. patient was in formed to see neurologist here. Allergies No Known Allergies Allergy (Verified 10/08/23 07:52) Medication List - Last Reconciled 10/08/23 by Zoey Foster MD emtricitabine-tenofovir (TDF) 200-300 mg (Truvada) 1 tab PO DAILY 30 days penicillin G benzathine 2.4 mmu IM QWEEK 1 day HPI Comments Details: 28y/o right handed male comes for evaluation of tremors He started having hand tremors more than 10 years ago . The tremors are mostly postural, worse with stress .He denies voice tremors or head tremors.He denies family h/o tremors, head injury .No exposure to psychiatric medications in the past . He was born full term but his mother had C section due to HTN.he denies any delayed milestones. He graduated and has a Masters in Global studies- [employer]. He has mild anxiety - seen by a psychologist.No panic attacks. He was seen by a neurologist in [place] . His CT brain showed atrophy .He was given escitalopram 10mg , sulurid ( antipsyhcotic) and propranolol 1/2 tab 50mg qd.He took the medications for 6 mths - helped a little.He did not like the side effects. His tremors does not affect his ADLs, or affect him socially.He denies nay speech or gait difficulties . [facility] Medical History (Updated 10/08/23 @ 08:19 by Zoey Foster MD) Cerebral atrophy Encounter for pre-exposure prophylaxis for HIV No pertinent past medical history Surgical History Hx of colonoscopy History of esophagogastroduodenoscopy (EGD) History of sleeve gastrectomy Family History Mother High blood pressure Father High blood pressure Diabetes Maternal Grandmother High blood pressure High cholesterol Paternal Grandmother High blood pressure High cholesterol Maternal Grandfather High blood pressure High cholesterol Cardiovascular disease Paternal Grandfather High blood pressure High cholesterol Social History Household Members: Friend(s) Housing: House 75 years or older and lives alone: No Alcohol intake: never Patient Tobacco Use Status: Never used Tobacco e-Cigarette/Vaping Use: Never Used Second Hand Smoke Exposure: No service: No Current occupational status: employed 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 Current occupational exposures/hazards: No Sexual orientation: Unable to collect Gender identity: Unable to collect Cognitive needs: No Hearing needs: No Vision needs: No Physical Exam Vital Signs: Last Vital Signs BP 118/78 10/08/23 07:49 BMI result Body Mass Index 22.0 Const General: cooperative, healthy appearing and comfortable Nutritional Appearance: average body habitus Orientation/consciousness: patient oriented x3 Eyes Pupils: Equal, round and reactive pupils present Neuro General: patient oriented x3, gait normal, tone normal, moves all extremities and no focal motor deficits Cranial nerves: Yes Facial sensation intact/muscles of mastication intact, Yes Equal, round and reactive pupils present, Yes Bilaterally intact EOM present, Yes Nystagmus not present, Yes Normal facial strength present, Yes Midline tongue present, Yes Symmetric palate elevation present and Yes Ability to bilaterally elevate shoulders present Cognition (Neuro): normal cognition Gait exam (Neuro): Normal gait present Motor exam (neuro): 5/5 motor strength present throughout and Normal motor muscle tone present throughout Deep tendon reflexes (DTR's): Right triceps reflex intensity grade: 3+, Left triceps reflex intensity grade: 3+, Rt Biceps (C5, C6): 3+, Left biceps reflex intensity grade: 3+, Right brachioradialis reflex intensity grade: 3+, Left brachioradialis reflex intensity grade: 3+, Right patellar reflex intensity grade: 3+, Left patellar reflex intensity grade: 3+, Right ankle reflex intensity grade: 3+ and Left ankle reflex intensity grade: 3+ Coordination: [id number] test normal Assessment & Plan Assessment & Plan (1) Tremor: Comment: exaggerated physiological, essential tremors Code(s): R25.1 - Tremor, unspecified Category: Medical (2) Cerebral atrophy: Comment: On CT brain and hyperreflexia Code(s): G31.9 - Degenerative disease of nervous system, unspecified Category: Medical (3) Syphilis (acquired): Comment: F/u with ID for possible neurosyphilis Code(s): A53.9 - Syphilis, unspecified Category: Medical Plan His tremors are mild and does not affect his ADLS. I will monitor him clinically I will do a MRI brain to further evaluate his atrophy Orders: Orders MR head/brain wo con Today G31.9 - Degenerative disease of nervous system, unspecified Coding Level of Care Code New Pt Level 4 (24427) Diagnoses Tremor R25.1 Cerebral atrophy G31.9 Syphilis (acquired) A53.9
== END 2023-10-08 08:22 | disposition home or self-care (01) ==
PROVIDERS: PCP Family Medicine; Visit Provider Psychiatry & Neurology Neurology
DX: R25.1 Tremor, unspecified (principal); G31.9 Degenerative disease of nervous system, unspecified; A53.9 Syphilis, unspecified
CPT/HCPCS: 99204

== ENCOUNTER → 2023-10-08 07:30 | Outpatient (BNVA) | payer OTHER, SELFPAY | PROVIDERS: PCP Family Medicine; Visit Provider Psychiatry & Neurology Neurology | DX: R25.1 Tremor, unspecified (principal); G31.9 Degenerative disease of nervous system, unspecified; A53.9 Syphilis, unspecified | CPT/HCPCS: 99202 ==

== ENCOUNTER 2023-10-22 12:11 | Outpatient (REF) | payer OTHER, SELFPAY ==
[2023-10-22 12:26] LABS: MANUAL DIFF FLAG NO
[2023-10-22 12:39] LABS: Basophils Absolute Auto 0.1 X10*3/uL (0.0-0.2); Eosinophils Absolute Auto 0.2 X10*3/uL (0.0-0.4); Eosinophils Percent Auto 2.9 % (0-4); Hematocrit 41.8 % (42.0-52.0); Hemoglobin 14.2 g/dl (14.0-18.0); Imm Gran Abs Auto 0.02 X10*3/uL (0.00-0.03); Imm Gran Pct Auto 0.3 % (0.0-0.4); Lymphocytes Absolute Auto 1.8 X10*3/uL (1.2-4.9); Lymphocytes Percent Auto 25.4 % (20-40); Mean Corpuscular Hemoglobin 29.1 pg (27.0-33.0); Mean Corpuscular Volume 85.7 fL (80.0-98.0); Mean Platelet Volume 10.2 fL (9.4-12.4); Monocytes Absolute Auto 0.5 X10*3/uL (0.1-1.2); Monocytes Percent Auto 7.1 % (2-11); Neutrophils Absolute Auto 4.4 x10*3/uL (2.0-8.3); Neutrophils Percent Auto 63.3 % (45-73); Platelet Count 248 X10*3/uL (160-400); Red Blood Count 4.88 X10*6/uL (4.60-5.80); Red Cell Distribution Width 14.5 % (11.0-16.0); White Blood Count 6.9 X10*3/uL (4.8-10.8)
[2023-10-22 13:10] LABS: Alanine Aminotransferase 6 U/L (0-40); Albumin Level 4.6 g/dL (3.5-5.0); Alkaline Phosphatase 54 U/L (39-117); Anion Gap 10 (12-20); Aspartate Amino Transferase 17 U/L (5-37); Bilirubin Total 0.9 mg/dL (0.0-1.0); Blood Urea Nitrogen 14 mg/dL (9-16); Calcium 10.2 mg/dL (8.4-10.2); Carbon Dioxide 27 mmol/L (22-29); Chloride 106 mmol/L (96-108); Cholesterol 134 mg/dL (<200); Estimated Glomerular Filt Rate > 60; Glucose Fasting 88 mg/dL (60-99); HDL Cholesterol 55 mg/dL (>40); LDL Cholesterol Calculated 69 mg/dL (<100); Potassium 4.4 mmol/L (3.3-5.1); Sodium 139 mmol/L (135-145); Total Protein 7.7 g/dL (6.5-8.0); Triglycerides 53 mg/dL (<150)
[2023-10-22 13:29] LABS: TSH reflex Free T4 1.21 uIU/mL (0.32-4.0); Vitamin D 25-OH Total 17.4 ng/mL (>30)
[2023-10-22 14:04] LABS: Appearance Urine Turbid; Color Urine Yellow; Glucose Urine UA Negative (Negative); Leukocyte Esterase Urine Negative (Negative); Nitrite Urine Negative (Negative); PH 8.5 (5.0-9.0); UMIC TRIGGER UACC YES; Urine Blood Trace (Negative); Urine Ketones Negative (Negative); Urine Protein Negative (Neg-Trace)
[2023-10-22 14:07] LABS: Bacteria Urine None Seen (None Seen); Hyaline Casts Urine 0-2 /LPF (0-2); Squamous Epithelial Cell Urine 0-2 /HPF (0-2); WBC Urine 0-5 /HPF (0-5)
[2023-10-27 15:57] LABS: RPR Rapid Plasma Reagin REACTIVE (NON-REACTIVE)
[2023-10-27 17:49] LABS: Rapid Plasma Reagin Ab Titer 1:16
== END 2023-10-22 12:12 | disposition home or self-care (01) ==
LOC: HO.LAB 12:11
PROVIDERS: Nurse Practitioner Family; PCP Family Medicine; Visit Provider Internal Medicine
DX: Z00.00 Encounter for general adult medical examination without abnormal findings (principal); A53.9 Syphilis, unspecified; R53.83 Other fatigue; J30.2 Other seasonal allergic rhinitis; F32.A Depression, unspecified
CPT/HCPCS: 36415; 80053; 80061; 81001; 81003; 82306; 84443; 85025; 86592; 86593

== ENCOUNTER 2023-11-04 13:01 | Outpatient (AMB) | payer OTHER, SELFPAY ==
[2023-11-04 13:09] VITALS: BP 121/67; PULSE 70; TEMP 37.2; O2SAT 99; BMI 20.2
--- NOTE | 2023-11-04 13:09 | A.OFFVIS_ITS ---
Vital Signs 11/04/23 13:09 Height 5 ft 10 in Weight 141 lb BMI 20.2 BP 121/67 Blood Pressure Location Lt brachial Position Sitting Pulse 70 Pulse Source Pulse Oximeter Temp 98.9 F Temp Source Oral Pulse Oximetry (%) 99 Oxygen Delivery Method Room Air Intake Visit Reasons: 1 month follow up lab Allergies No Known Allergies Allergy (Verified 04/20/24 13:09) PFS Medical History Migraine Cerebral atrophy Encounter for pre-exposure prophylaxis for HIV No pertinent past medical history Surgical History Hx of colonoscopy History of esophagogastroduodenoscopy (EGD) History of sleeve gastrectomy Family History Mother High blood pressure Father High blood pressure Diabetes Maternal Grandmother High blood pressure High cholesterol Paternal Grandmother High blood pressure High cholesterol Maternal Grandfather High blood pressure High cholesterol Cardiovascular disease Paternal Grandfather High blood pressure High cholesterol Social History Household Members: Friend(s) Housing: House 75 years or older and lives alone: No Alcohol intake: never Patient Tobacco Use Status: Never used Tobacco e-Cigarette/Vaping Use: Never Used Second Hand Smoke Exposure: No service: No Current occupational status: employed 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 Current occupational exposures/hazards: No Sexual orientation: Unable to collect Gender identity: Unable to collect Cognitive needs: No Hearing needs: No Vision needs: No Physical Exam Vital Signs: Last Vital Signs Temp 98.9 F 11/04/23 13:09 Pulse 70 11/04/23 13:09 BP 121/67 11/04/23 13:09 Pulse Ox 99 11/04/23 13:09 Oxygen Delivery Method Room Air 11/04/23 13:09 BMI result Body Mass Index 20.2 Assessment & Plan Assessment & Plan (1) Syphilis (acquired): Comment: Titers resolving No concerns Code(s): A53.9 - Syphilis, unspecified Category: Medical Plan n/ Orders: Orders RPR Monitor reflex titer 2 Months A53.9 - Syphilis, unspecified Coding Level of Care Code Est Pt Level 3 (71170) Diagnoses Syphilis (acquired) A53.9
== END 2023-11-04 13:58 | disposition home or self-care (01) ==
PROVIDERS: PCP Family Medicine; Visit Provider Internal Medicine
DX: A53.9 Syphilis, unspecified (principal)
CPT/HCPCS: 99499

== ENCOUNTER → 2023-11-04 13:01 | Outpatient (BNVA) | payer OTHER, SELFPAY | PROVIDERS: PCP Family Medicine; Visit Provider Internal Medicine ==

== ENCOUNTER 2023-11-16 08:34 | Outpatient (REF) | payer OTHER, SELFPAY ==
--- NOTE | ~2023-11-16 | MR_ITS ---
EXAMINATION: MR BRAIN WITHOUT CONTRAST CLINICAL INFORMATION: CT head 06/05/2023 COMPARISON: Degenerative disease of nervous system, unspecified. Headache TECHNIQUE: MRI of the brain was obtained using routine sequences without contrast. FINDINGS: There is no reduced diffusion to suggest acute infarct. Susceptibility weighted sequence is within normal limits. No mass effect, extra-axial collection, midline shift, or other herniation. There is generalized cerebral volume loss with ventricular and sulcal prominence that is greater than expected for the patient's age. Faint scattered periventricular T2/FLAIR hyperintensity is nonspecific. Intracranial flow voids are preserved. Trace ethmoid air cell mucosal thickening. The mastoid air cells are well-aerated. No focal expansile or destructive osseous lesion. MR/MR head/brain wo con IMPRESSION: Moderate supratentorial volume loss is greater than expected for the patient's age. No acute infarction or mass effect.
== END 2023-11-16 08:35 | disposition home or self-care (01) ==
LOC: HO.MRI 08:34
PROVIDERS: PCP Family Medicine; Visit Provider Psychiatry & Neurology Neurology
DX: G31.9 Degenerative disease of nervous system, unspecified (principal)
CPT/HCPCS: 70551

== ENCOUNTER 2023-12-08 22:24 | Emergency (ER) | payer OTHER, SELFPAY ==
--- NOTE | ~2023-12-08 | CT_ITS ---
EXAMINATION: CT ABDOMEN AND PELVIS WITH CONTRAST CLINICAL INFORMATION: Right lower quadrant pain. Status post sleeve procedure. COMPARISON: None available. TECHNIQUE: Multidetector volumetric images were obtained from the superior aspect of the liver through the pubic symphysis following administration 85 mL of Omnipaque 350 intravenous contrast. Sagittal and coronal reformatted images were obtained on the technologist's workstation. Oral contrast: No This CT examination was performed using dose optimization techniques as appropriate, variously including the following: *Automated exposure control *Adjustment of mA and/or kV according to patient size (this includes techniques or standardized protocols for targeted exams where dose is matched to indication/reason for exam; i.e. extremities or head) *Use of iterative reconstruction technique DLP: 374 mGy-cm FINDINGS: LUNG BASES: The visualized lung bases are unremarkable. LIVER, GALLBLADDER, AND BILIARY TREE: The liver is normal in size, shape, and attenuation. No focal hepatic lesion or biliary ductal dilatation is present. The gallbladder is unremarkable with no evidence of radiopaque gallstones, gallbladder wall thickening, or obvious pericholecystic inflammatory changes. PANCREAS: Unremarkable. SPLEEN: Unremarkable. ADRENAL GLANDS: Unremarkable. KIDNEYS AND URETERS: The kidneys are normal in size, shape, and attenuation. No hydronephrosis, hydroureter, or calculi seen. No perinephric stranding. There is a 1 cm cyst lower pole left kidney. BLADDER: Unremarkable. GASTROINTESTINAL TRACT: There has been a prior gastric sleeve procedure. There is a small hiatal hernia. The small and large bowel are unremarkable. The appendix is unremarkable. ABDOMINAL WALL: No significant hernia is appreciated. LYMPH NODES: Normal. VASCULAR: Unremarkable. PELVIC VISCERA: Unremarkable. OSSEOUS STRUCTURES: Unremarkable. CT/CT abdomen pelvis w IV con IMPRESSION: No acute abnormality identified. Fleischner guidelines were followed.
[2023-12-08 22:25] VITALS: BP 149/91; PULSE 72; RESP 18; TEMP 36.8; O2SAT 100; BMI 20.1
[2023-12-08 22:46] LABS: MANUAL DIFF FLAG NO
[2023-12-08 22:47] LABS: Basophils Absolute Auto 0.1 X10*3/uL (0.0-0.2); Basophils Percent Auto 0.6 % (0-2); Eosinophils Absolute Auto 0.3 X10*3/uL (0.0-0.4); Eosinophils Percent Auto 2.6 % (0-4); Hematocrit 43.5 % (42.0-52.0); Hemoglobin 14.5 g/dl (14.0-18.0); Imm Gran Abs Auto 0.03 X10*3/uL (0.00-0.03); Imm Gran Pct Auto 0.3 % (0.0-0.4); Lymphocytes Absolute Auto 3.3 X10*3/uL (1.2-4.9); Mean Corpuscular HGB Conc 33.3 g/dl (31.0-36.0); Mean Corpuscular Hemoglobin 28.5 pg (27.0-33.0); Mean Corpuscular Volume 85.5 fL (80.0-98.0); Mean Platelet Volume 10.3 fL (9.4-12.4); Monocytes Absolute Auto 0.8 X10*3/uL (0.1-1.2); Monocytes Percent Auto 7.8 % (2-11); Neutrophils Absolute Auto 5.8 x10*3/uL (2.0-8.3); Neutrophils Percent Auto 56.7 % (45-73); Platelet Count 270 X10*3/uL (160-400); Red Blood Count 5.09 X10*6/uL (4.60-5.80); Red Cell Distribution Width 13.5 % (11.0-16.0); White Blood Count 10.3 X10*3/uL (4.8-10.8)
[2023-12-08 22:53] LABS: Appearance Urine Clear; Color Urine Yellow; Glucose Urine UA Negative (Negative); Leukocyte Esterase Urine Negative (Negative); Nitrite Urine Negative (Negative); PH 6.5 (5.0-9.0); Specific Gravity - Urine 1.025 (1.005-1.025); UMIC TRIGGER UACC YES; Urine Blood Moderate (2+) (Negative); Urine Ketones Negative (Negative); Urine Protein Negative (Neg-Trace)
[2023-12-08 22:55] LABS: Bacteria Urine None Seen (None Seen); Hyaline Casts Urine 0-2 /LPF (0-2); Squamous Epithelial Cell Urine 0-2 /HPF (0-2); WBC Urine 0-5 /HPF (0-5)
[2023-12-08 23:03] LABS: Alanine Aminotransferase 6 U/L (0-40); Albumin Level 4.8 g/dL (3.5-5.0); Alkaline Phosphatase 54 U/L (39-117); Anion Gap 11 (12-20); Aspartate Amino Transferase 16 U/L (5-37); Bilirubin Total 0.5 mg/dL (0.0-1.0); Blood Urea Nitrogen 15 mg/dL (9-16); Calcium 10.4 mg/dL (8.4-10.2); Carbon Dioxide 27 mmol/L (22-29); Chloride 106 mmol/L (96-108); Creatinine Clr Calc Pharmacy 122.6; Estimated Glomerular Filt Rate > 60; Glucose Random 94 mg/dL (60-115); Lipase 32 U/L (8-78); Potassium 4.3 mmol/L (3.3-5.1); Sodium 140 mmol/L (135-145); Total Protein 8.3 g/dL (6.5-8.0)
[2023-12-09 00:12] VITALS: BP 120/81; PULSE 53; RESP 16; TEMP 36.7; O2SAT 100
--- NOTE | 2023-12-09 00:25 | ED.ABDPAIN ---
HPI - Abdominal Pain General Chief Complaint: Abdominal Pain Stated Complaint: Abdominal pain Time Seen by Provider: 12/09/23 00:13 Source: patient and old records reviewed Mode of arrival: ambulatory Limitations: no limitations History of Present Illness ED Provider: WADE LIMON narrative: 28 yo male with PMH of treated Hep C infection, depression, s/p gastric sleeve procedure in [place] laparascopic 2019 here with c/o RLQ pain and nausea after eating a chicken sandwhich made at home. Normal BM and flatus today. Took tylenol with some relief prior to arrival. Has had similar issues but not to this extent with spicy food. No issues. MD elicited complaint: abdominal pain Pertinent past history: none Onset (ago): day(s) (9pm on Thursday) Pain Consistency: constant Location: RLQ Severity: moderate Quality: aching Radiation: none Migration to: no migration Exacerbating factors: eating and movement Relieving factors: nothing Context: history of similar episodes Associated symptoms: nausea Treatments prior to arrival: other (tylenol) Related Data Previous Rx's ?Medication ?Instructions ?Recorded emtricitabine 200 mg-tenofovir 1 tab PO DAILY 30 days #30 tabs 07/01/23 disoproxil fumarate 300 mg tablet (Truvada) penicillin G benzathine 2.4 2.4 mmu IM QWEEK 1 day #1 ea 09/30/23 million unit intramuscular suspension cholecalciferol (vitamin D3) 25 25 mcg PO DAILY 90 days #90 tabs 10/22/23 mcg (1,000 unit) tablet Allergies Allergy/AdvReac Type Severity Reaction Status Date / Time No Known Allergies Allergy Verified 12/08/23 22:28 Review of Systems Review of Systems Constitutional : No Weight loss, No Fever, No Chills ENT/Mouth : No sore throat, No Rhinorrhea Eyes: No Swelling, No Redness Cardiovascular : No Chest Pain, No SOB, No edema Respiratory : No Cough, No Sputum, No Wheezing Gastrointestinal : Positive Nausea, no Vomiting, no Diarrhea, positive abdominal Pain, No Hematochezia, No Melena Genitourinary : No Dysuria, No Urinary Frequency, No Hematuria, No Urgency Musculoskeletal : No joint pain, No Myalgias, No Joint Swelling Skin : No Skin Lesions, No rash Neuro : No Weakness, No Numbness, No Dizziness, No Headache Psych : No Anxiety/Panic, No Depression All other systems reviewed and are negative. [facility] Past Medical History Attestation statement: The following information was validated with the patient. Source: old records reviewed Medical History Cerebral atrophy Encounter for pre-exposure prophylaxis for HIV No pertinent past medical history Surgical History Hx of colonoscopy History of esophagogastroduodenoscopy (EGD) History of sleeve gastrectomy Family History Family History Mother High blood pressure Father High blood pressure Diabetes Maternal Grandmother High blood pressure High cholesterol Paternal Grandmother High blood pressure High cholesterol Maternal Grandfather High blood pressure High cholesterol Cardiovascular disease Paternal Grandfather High blood pressure High cholesterol Social History Social History Household Members: Friend(s) Housing: House Alcohol intake: never Patient Tobacco Use Status: Never used Tobacco e-Cigarette/Vaping Use: Never Used Second Hand Smoke Exposure: No Advance Directives: No Advance Directives Information Provided: Yes Do you have a plan to hurt others: No Plan service: No Current occupational status: employed 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 Oriented X3. No acute distress. Eyes: Pupils equal, round and reactive to light. ENT: Pharynx normal. Neck: Normal inspection. Neck supple. CVS: Normal heart rate and rhythm. Pulses normal. Respiratory: No respiratory distress. Breath sounds normal. Abdomen: Soft and mild ttp in RLQ no rebound no guarding Skin: Skin warm and dry. Normal skin color. Normal skin turgor. Extremities: No lower extremity edema. No calf ttp Neuro: Oriented X 3. No motor deficit. No sensory deficit. Medical Decision Making Medical Decision Making MDM Narrative: 28 yo male with PMH of treated Hep C infection, depression, s/p gastric sleeve procedure in [place] laparascopic 2019 here with c/o RLQ pain since 9pm at this time no complaints he is having normal BM and passing flatus clinically not consistent with SBO will obtain CT scan for renal colic/appendicitis. Differential Diagnosis Differential Diagnoses: The differential diagnosis associated with the presentation includes appendicitis, enteritis, colitis, constipation, SBO, renal colic Admission/Observation Consideration of admission/observation: Escalation of care including admission/observation considered negative labs and CT scan stable for DC Lab Data [facility] Lab Attestation statement: I reviewed the patient's lab results. 12/08/23 22:41 12/08/23 22:41 Labs: Lab Results 12/08/23 12/08/23 Range/Units 22:41 22:46 WBC 10.3 (4.8-10.8) X10*3/uL RBC 5.09 (4.60-5.80) X10*6/uL Hgb 14.5 (14.0-18.0) g/dl Hct 43.5 (42.0-52.0) % MCV 85.5 (80.0-98.0) fL MCH 28.5 (27.0-33.0) pg MCHC 33.3 (31.0-36.0) g/dl RDW 13.5 (11.0-16.0) % Plt Count 270 (160-400) X10*3/uL MPV 10.3 (9.4-12.4) fL Immature Gran % (Auto) 0.3 (0.0-0.4) % Neut % (Auto) 56.7 (45-73) % Lymph % (Auto) 32.0 (20-40) % Parmer % (Auto) 7.8 (2-11) % Eos % (Auto) 2.6 (0-4) % Baso % (Auto) 0.6 (0-2) % Lymph # (Auto) 3.3 (1.2-4.9) X10*3/uL Parmer # (Auto) 0.8 (0.1-1.2) X10*3/uL Eos # (Auto) 0.3 (0.0-0.4) X10*3/uL Baso # (Auto) 0.1 (0.0-0.2) X10*3/uL Abs Immat Gran (auto) 0.03 (0.00-0.03) X10*3/uL Absolute Neuts (auto) 5.8 (2.0-8.3) x10*3/uL Absolute Nucleated RBC 0.000 (0.0-0.012) X10*3/uL Nucleated RBC % (auto) 0.0 (0.0-0.2) /100WBC Sodium 140 (135-145) mmol/L Potassium 4.3 (3.3-5.1) mmol/L Chloride 106 (96-108) mmol/L Carbon Dioxide 27 (22-29) mmol/L Anion Gap 11 L (12-20) BUN 15 (9-16) mg/dL Creatinine 0.82 (0.5-1.4) mg/dL Estim Creat Clear Calc 122.6 Estimated GFR > 60 Random Glucose 94 (60-115) mg/dL Calcium 10.4 H (8.4-10.2) mg/dL Total Bilirubin 0.5 (0.0-1.0) mg/dL AST 16 (5-37) U/L ALT 6 (0-40) U/L Alkaline Phosphatase 54 (39-117) U/L Total Protein 8.3 H (6.5-8.0) g/dL Albumin 4.8 (3.5-5.0) g/dL Lipase 32 (8-78) U/L Urine Color Yellow Urine Appearance Clear Urine pH 6.5 (5.0-9.0) Ur Specific Thayer 1.025 (1.005-1.025) Urine Protein Negative (Neg-Trace) mg/dL Urine Glucose (UA) Negative (Negative) mg/dL Urine Ketones Negative (Negative) mg/dL Urine Blood Moderate (2+) H (Negative) Urine Nitrite Negative (Negative) Ur Leukocyte Esterase Negative (Negative) Urine RBC 11-20 H (0-2) /HPF Urine WBC 0-5 (0-5) /HPF Ur Squamous Epith Cells 0-2 (0-2) /HPF Urine Bacteria None Seen (None Seen) Hyaline Casts 0-2 (0-2) /LPF Independent Interpretation I performed an independent interpretation of an: CT Scan (normal ) Radiology Impression Discussion of test interpretation with radiology: I have reviewed the radiologist's reading. External Record Review External record reviewed: Office record Medications Administered Discontinued Medications Generic Name Dose Route Start Last Admin Trade Name Freemelia PRN Reason Stop Dose Admin Sodium Chloride 1,000 mls @ 999 mls/hr 12/09/23 00:41 12/09/23 02:05 Ns IV 12/09/23 01:41 999 mls/hr .Q1H1M ONE Administration Iohexol 85 ml 12/09/23 01:20 12/09/23 01:21 Iohexol 350 Mg/Ml 100 Ml Infus..Btl IV 12/09/23 01:21 85 ml ONCE ONE Administration Discharge Plan Discharge Clinical Impression: Abdominal pain Qualifiers: Abdominal location: right lower quadrant Qualified Code(s): R10.31 - Right lower quadrant pain Patient Disposition: Home, Self-Care Instructions: Abdominal Pain (ED) Additional Instructions: labs reassuring small amount of blood in urine repeat urine with doctor next week CT scan was normal return for worsening symptoms or concerns bland diet today Prescriptions: No Action cholecalciferol (vitamin D3) 25 mcg (1,000 unit) tablet 25 mcg PO DAILY 90 Days Qty: 90 1RF emtricitabine-tenofovir (TDF) [Truvada] 200-300 mg tablet 1 tab PO DAILY 30 Days Qty: 30 2RF penicillin G benzathine 2.4 million unit suspension for reconstitution 2.4 mmu IM QWEEK 1 Days Qty: 1 0RF Stand Alone Forms: Work/School Release Print Language: Japanese
[2023-12-09] MEDS: iohexoL 350 MG/ML 100 ML INFUS..BTL 85 ML IV (01:21)
[2023-12-09] MEDS: 0.9 % Sodium Chloride 1,000 ML 999 ML IV (02:05)
[2023-12-09 02:14] VITALS: BP 120/75; PULSE 56; RESP 16; TEMP 36.7; O2SAT 98
[2023-12-09 03:20] VITALS: BP 133/86; PULSE 61; RESP 16; TEMP 36.5; O2SAT 98
[2023-12-09 03:22] VITALS: BP 133/86; PULSE 61; RESP 16; TEMP 36.5; O2SAT 98
== END 2023-12-09 03:23 | disposition home or self-care (01) ==
PROVIDERS: Emergency Provider Emergency Medicine; PCP Family Medicine
DX: R10.31 Right lower quadrant pain (principal); R11.0 Nausea; B19.20 Unspecified viral hepatitis C without hepatic coma; Z98.84 Bariatric surgery status
CPT/HCPCS: 36415; 74177; 80053; 81001; 83690; 85025; 96360; 99284; Q9967

== ENCOUNTER 2024-01-15 10:21 | Outpatient (REF) | payer OTHER, SELFPAY ==
[2024-01-15 11:54] LABS: HIV AB/AG Nonreactive (Nonreactive); HIV Num 1 0.05 S/CO (0.00-0.99)
[2024-01-19 02:48] LABS: RPR Rapid Plasma Reagin REACTIVE (NON-REACTIVE)
== END 2024-01-15 10:22 | disposition home or self-care (01) ==
LOC: HO.LAB 10:21
PROVIDERS: PCP Family Medicine; Visit Provider Internal Medicine
DX: A53.9 Syphilis, unspecified (principal)
CPT/HCPCS: 36415; 86592; 86593; 87389

== ENCOUNTER 2024-01-20 07:29 | Outpatient (AMB) | payer OTHER, SELFPAY ==
--- NOTE | 2024-01-20 07:37 | A.OFFVIS_ITS ---
Vital Signs 01/20/24 07:39 Height 5 ft 10 in Weight 148 lb 2 oz BMI 21.3 BP 108/70 Blood Pressure Location Rt brachial Position Sitting Respiration 17 Pulse 72 Pulse Source Palpation Intake Visit Reasons: Tremor/Degen dis of nerv Intake Note: Pt presents to the office for a 3 month follow up for cerebral atrophy. Onsite Case Manager Required: No Allergies No Known Allergies Allergy (Verified 01/20/24 07:38) Medication List - Last Reconciled 01/20/24 by Zoey Foster MD cholecalciferol (vitamin D3) 25 mcg PO DAILY 90 days emtricitabine-tenofovir (TDF) 200-300 mg (Truvada) 1 tab PO DAILY 30 days penicillin G benzathine 2.4 mmu IM QWEEK 1 day HPI Comments Details: 28y/o right handed male comes for follow up of tremors and cerebral atrophy. He is on tretament for syhilis now. Repeat MRI shows moderate atrophy. He reports headaches since age 21. It is unitemporal , light and noise sensitivity , nausea. No aura. It can last 2hrs -24hrs ( usually on rainy days ) He has 1 day a week. He takes excedrin migraine - does not help. Previous history-He started having hand tremors more than 10 years ago . The tremors are mostly postural, worse with stress .He denies voice tremors or head tremors.He denies family h/o tremors, head injury .No exposure to psychiatric medications in the past . He was born full term but his mother had C section due to HTN.he denies any delayed milestones. He graduated and has a Masters in Global studies- [employer]. He has mild anxiety - seen by a psychologist.No panic attacks. He was seen by a neurologist in [place] . His CT brain showed atrophy .He was given escitalopram 10mg , sulurid ( antipsyhcotic) and propranolol 1/2 tab 50mg qd.He took the medications for 6 mths - helped a little.He did not like the side effects. His tremors does not affect his ADLs, or affect him socially.He denies nay speech or gait difficulties . [facility] Medical History (Updated 01/20/24 @ 07:56 by Zoey Foster MD) Migraine Cerebral atrophy Encounter for pre-exposure prophylaxis for HIV No pertinent past medical history Surgical History Hx of colonoscopy History of esophagogastroduodenoscopy (EGD) History of sleeve gastrectomy Family History Mother High blood pressure Father High blood pressure Diabetes Maternal Grandmother High blood pressure High cholesterol Paternal Grandmother High blood pressure High cholesterol Maternal Grandfather High blood pressure High cholesterol Cardiovascular disease Paternal Grandfather High blood pressure High cholesterol Social History Household Members: Friend(s) Housing: House 75 years or older and lives alone: No Alcohol intake: never Patient Tobacco Use Status: Never used Tobacco e-Cigarette/Vaping Use: Never Used Second Hand Smoke Exposure: No service: No Current occupational status: employed 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 Current occupational exposures/hazards: No Sexual orientation: Unable to collect Gender identity: Unable to collect Cognitive needs: No Hearing needs: No Vision needs: No Physical Exam Vital Signs: Last Vital Signs Pulse 72 01/20/24 07:39 Resp 17 01/20/24 07:39 BP 108/70 01/20/24 07:39 BMI result Body Mass Index 21.3 Const General: cooperative, healthy appearing and comfortable Nutritional Appearance: average body habitus Orientation/consciousness: patient oriented x3 Eyes Pupils: Equal, round and reactive pupils present Neuro Other: very mild tremors hands General: patient oriented x3, gait normal, tone normal, moves all extremities and no focal motor deficits Cranial nerves: Yes Facial sensation intact/muscles of mastication intact, Yes Equal, round and reactive pupils present, Yes Bilaterally intact EOM present, Yes Nystagmus not present, Yes Normal facial strength present, Yes Midline tongue present, Yes Symmetric palate elevation present and Yes Ability to bilaterally elevate shoulders present Cognition (Neuro): normal cognition Gait exam (Neuro): Normal gait present Motor exam (neuro): 5/5 motor strength present throughout and Normal motor muscle tone present throughout Deep tendon reflexes (DTR's): Right triceps reflex intensity grade: 3+, Left triceps reflex intensity grade: 3+, Rt Biceps (C5, C6): 3+, Left biceps reflex intensity grade: 3+, Right brachioradialis reflex intensity grade: 3+, Left brachioradialis reflex intensity grade: 3+, Right patellar reflex intensity grade: 3+, Left patellar reflex intensity grade: 3+, Right ankle reflex intensity grade: 3+ and Left ankle reflex intensity grade: 3+ Coordination: [id number] test normal Results Reviewed Results Reviewed: 10/2023 MRI Brain-Moderate supratentorial volume loss is greater than expected for the patient's age. No acute infarction or mass effect. Assessment & Plan Assessment & Plan (1) Tremor: Comment: exaggerated physiological, essential tremors Code(s): R25.1 - Tremor, unspecified Category: Medical (2) Cerebral atrophy: Comment: On CT brain and hyperreflexia Code(s): G31.9 - Degenerative disease of nervous system, unspecified Category: Medical (3) Syphilis (acquired): Comment: F/u with ID for possible neurosyphilis Code(s): A53.9 - Syphilis, unspecified Category: Medical (4) Migraine: Code(s): G43.909 - Migraine, unspecified, not intractable, without status migrainosus Category: Medical Plan His tremors are mild and does not affect his ADLS. I will monitor him clinically Discussed MRI results - atrophy could be related to syphilis ( sees ID Dr. Lizett Lee)- on Penicillin I will trial him sumatriptan 50mg as needed for migraine Magnesium 400mg qhs and vit B2 400mg qam Medications: New sumatriptan succinate take 1 tab at onset of headache; if no relief may repeat 1 tab after at least 2 hrs; max = 4 tabs/24 hr PO 10 tabs 6RF magnesium oxide 400 mg PO BEDTIME 30 caps 6RF riboflavin (vitamin B2) 400 mg PO QAM 30 tabs 6RF Coding Level of Care Code Est Pt Level 4 (19940) Complex EM visit Add On G2211 Diagnoses Tremor R25.1 Cerebral atrophy G31.9 Syphilis (acquired) A53.9 Migraine G43.909
[2024-01-20 07:39] VITALS: BP 108/70; PULSE 72; RESP 17; BMI 21.3
== END 2024-01-20 08:01 | disposition home or self-care (01) ==
PROVIDERS: PCP Family Medicine; Visit Provider Psychiatry & Neurology Neurology
DX: R25.1 Tremor, unspecified (principal); G31.9 Degenerative disease of nervous system, unspecified; A53.9 Syphilis, unspecified; G43.909 Migraine, unspecified, not intractable, without status migrainosus
CPT/HCPCS: 99214; G2211

== ENCOUNTER → 2024-01-20 07:29 | Outpatient (BNVA) | payer OTHER, SELFPAY | PROVIDERS: PCP Family Medicine; Visit Provider Psychiatry & Neurology Neurology | DX: A53.9 Syphilis, unspecified (principal); G43.909 Migraine, unspecified, not intractable, without status migrainosus; G31.9 Degenerative disease of nervous system, unspecified; R25.1 Tremor, unspecified; Z29.81 Encounter for HIV pre-exposure prophylaxis | CPT/HCPCS: 99212 ==

== ENCOUNTER 2024-01-20 13:03 | Outpatient (AMB) | payer OTHER, SELFPAY ==
[2024-01-20 13:04] VITALS: PULSE 58; O2SAT 98; BMI 21.2
--- NOTE | 2024-01-20 13:04 | A.OFFVIS_ITS ---
Vital Signs 01/20/24 13:04 Height 5 ft 10 in Weight 148 lb BMI 21.2 Pulse 58 Pulse Oximetry (%) 98 Oxygen Delivery Method Room Air Intake Visit Reasons: f/u 3 mth,lab Allergies No Known Allergies Allergy (Verified 01/20/24 13:08) HPI HPI f/u 3 mth,lab: Details: He continues to take Prep and has no concerns. His RPR down from 1:16 on 10/21 to 1:8 on 01/14. He has no symptoms and declines prophylactic Doxycycline for STIs. He takes Truvada. [facility] Medical History Migraine Cerebral atrophy Encounter for pre-exposure prophylaxis for HIV No pertinent past medical history Surgical History Hx of colonoscopy History of esophagogastroduodenoscopy (EGD) History of sleeve gastrectomy Family History Mother High blood pressure Father High blood pressure Diabetes Maternal Grandmother High blood pressure High cholesterol Paternal Grandmother High blood pressure High cholesterol Maternal Grandfather High blood pressure High cholesterol Cardiovascular disease Paternal Grandfather High blood pressure High cholesterol Social History Household Members: Friend(s) Housing: House 75 years or older and lives alone: No Alcohol intake: never Patient Tobacco Use Status: Never used Tobacco e-Cigarette/Vaping Use: Never Used Second Hand Smoke Exposure: No service: No Current occupational status: employed 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 Current occupational exposures/hazards: No Sexual orientation: Unable to collect Gender identity: Unable to collect Cognitive needs: No Hearing needs: No Vision needs: No Review of Systems Const All systems reviewed & are unremarkable except as noted in HPI and below Physical Exam Vital Signs: Last Vital Signs Pulse 58 01/20/24 13:04 Pulse Ox 98 01/20/24 13:04 Oxygen Delivery Method Room Air 01/20/24 13:04 BMI result Body Mass Index 21.2 Const General: cooperative Orientation/consciousness: patient oriented x3 HEENT Head: Yes normal to inspection Mouth: Normal oral and palatal mucosa present Eyes General: appearance normal, both eyes and all related structures Pupils: Equal, round and reactive pupils present Resp Effort & Inspection: normal respiratory effort Cardio Rate: regular rate Rhythm: regular rhythm GI Palpation (GI): Soft to palpation and nontender General: Yes no CVA tenderness Back/Spine/Pelvis Back: no CVA tenderness Skin General skin exam: no rashes or lesions noted Neuro General: patient oriented x3 Cranial nerves: Yes CN's II-XII intact bilaterally and Yes Equal, round and reactive pupils present Extrem General: Yes normal to inspection Psych Appearance: grossly normal Assessment & Plan Assessment & Plan (1) Syphilis (acquired): Comment: Titers resolving No concerns Code(s): A53.9 - Syphilis, unspecified Category: Medical Plan: Continue Truvada with HIV testing before in 3 months. (2) Encounter for pre-exposure prophylaxis for HIV: Code(s): Z29.81 - Encounter for HIV pre-exposure prophylaxis Category: Medical Plan: na Plan na Orders: Orders RPR Monitor reflex titer 3 Months Z.81 - Encounter for HIV pre-exposure prophylaxis HIV Ab/Ag 3 Months A53.9 - Syphilis, unspecified Medications: New emtricitabine-tenofovir (TDF) 200-300 mg (Truvada) 1 tab PO DAILY 30 tabs 3RF 30 days Coding Level of Care Code Est Pt Level 3 (76639) Diagnoses Syphilis (acquired) A53.9 Encounter for pre-exposure prophylaxis for HIV Z.81
== END 2024-01-20 13:29 | disposition home or self-care (01) ==
LOC: HO.HID 13:03
PROVIDERS: PCP Family Medicine; Visit Provider Internal Medicine
DX: A53.9 Syphilis, unspecified (principal); Z29.81 Encounter for HIV pre-exposure prophylaxis
CPT/HCPCS: 99213

== ENCOUNTER 2024-02-23 08:29 | Outpatient (REF) | payer OTHER, SELFPAY ==
--- NOTE | ~2024-02-23 | US_ITS ---
EXAMINATION: US ABDOMEN LIMITED CLINICAL INFORMATION: Cholesterolosis of gallbladder. COMPARISON: CT abdomen and pelvis 12/09/2023. Ultrasound abdomen complete 08/26/2023. TECHNIQUE: Real-time imaging of the right upper quadrant abdominal viscera. FINDINGS: PANCREAS: The pancreas appears unremarkable, without masses or ductal dilatation, with the exception of the tail which is obscured by bowel gas. LIVER: The liver is normal in size. The liver contour is normal. Parenchymal echogenicity is normal. No focal hepatic lesion. There is no intrahepatic biliary duct dilatation seen. GALLBLADDER: The gallbladder is physiologically distended without evidence of stones, sludge, wall thickening or pericholecystic fluid. Two gallbladder wall polyps are seen measuring 2 and 5 mm in greatest size. COMMON BILE DUCT: Normal in caliber measuring 0.1 cm in diameter. RIGHT KIDNEY: Normal. No hydronephrosis. No renal calculi or focal parenchymal lesions. The kidney measures 9.8 cm in maximum dimension. FREE FLUID: None. US/US abdomen limited IMPRESSION: Gallbladder polyps. Follow-up in one year is recommended. Electronically signed by: Raudel Oakes MD 04/07/2024 12:23 PM ANDERS
== END 2024-02-23 08:30 | disposition home or self-care (01) ==
LOC: HO.US 08:29
PROVIDERS: PCP Family Medicine; Visit Provider Internal Medicine
DX: K82.4 Cholesterolosis of gallbladder (principal)
CPT/HCPCS: 76705

== ENCOUNTER 2024-02-26 10:14 | Outpatient (AMB) | payer OTHER, SELFPAY ==
--- NOTE | 2024-02-26 10:35 | AM.OFFVISNUR ---
Intake Visit Reasons: Hep B #3 Allergies No Known Allergies Allergy (Verified 01/20/24 13:08) Assessment & Plan Assessment & Plan Orders: Orders Hepatitis B Adult Immunization Today Z23 - Encounter for immunization Medications: New Engerix-B (PF) (hepatitis B virus vacc.rec(PF)) 1 mL IM ONCE 1 mL 0RF NS Z23 - Encounter for immunization
== END 2024-02-26 10:36 | disposition home or self-care (01) ==
PROVIDERS: PCP Family Medicine; Visit Provider Internal Medicine
DX: Z23 Encounter for immunization (principal)

== ENCOUNTER → 2024-02-26 10:14 | Outpatient (BNVA) | payer OTHER, SELFPAY | PROVIDERS: PCP Family Medicine; Visit Provider Internal Medicine | DX: Z23 Encounter for immunization (principal) | CPT/HCPCS: 90471; 90746; 99211 ==

== ENCOUNTER 2024-03-07 14:21 | Outpatient (AMB) | payer OTHER, SELFPAY ==
--- NOTE | 2024-03-07 14:32 | A.OFFPC_ITS ---
Vital Signs 03/07/24 14:35 Height 5 ft 10 in Weight 149 lb 6 oz BMI 21.4 BP 120/56 L Blood Pressure Location Rt brachial Position Sitting Respiration 16 Pulse 80 Pulse Source Pulse Oximeter Temp 98.4 F Temp Source Temporal Artery Scan Pulse Oximetry (%) 99 Oxygen Delivery Method Room Air Intake Visit Reasons: f/u chronic conditions Intake Note: f/u chronic conditions Allergies No Known Allergies Allergy (Verified 03/07/24 14:33) Tobacco use date assessed: 09/01/23 Dental Screening Dental Screen Date: 09/01/23 HPI f/u chronic conditions HPI Details 28 y/o male presents to f/u chronic cond itions. He notes he has finished his penicillin. Had appts. with Infectious Disease, GI, Neurology. Pt notes ongoing tremors. Had been given magnesium. Ultrasound has not been read yet. [facility] Medical History Migraine Cerebral atrophy Encounter for pre-exposure prophylaxis for HIV No pertinent past medical history Surgical History Hx of colonoscopy History of esophagogastroduodenoscopy (EGD) History of sleeve gastrectomy Family History Mother High blood pressure Father High blood pressure Diabetes Maternal Grandmother High blood pressure High cholesterol Paternal Grandmother High blood pressure High cholesterol Maternal Grandfather High blood pressure High cholesterol Cardiovascular disease Paternal Grandfather High blood pressure High cholesterol Social History Household Members: Friend(s) Housing: House 75 years or older and lives alone: No Alcohol intake: never Patient Tobacco Use Status: Never used Tobacco e-Cigarette/Vaping Use: Never Used Second Hand Smoke Exposure: No service: No Current occupational status: employed Current occupation: [employer] Current occupational exposures/hazards: No Sexual orientation: Unable to collect Gender identity: Unable to collect Cognitive needs: No Hearing needs: No Vision needs: No Questionnaire Thrive Questionnaire Date Thrive assessed: 09/01/23 AUDIT C Alcohol Use Questionnaire (AUDIT-C) 3. How often do you have six or more drinks on one occasion?: Never Total Score: 0 CARO-7 AMB Questionnaire CARO-7 Date CARO - 7 assessed: 09/01/23 Source: Developed by Drs. Jacques Cleaning, Lavonne Colon, Marquis Black and colleagues, with an educational mario from [employer]. Review of Systems Const Denies chills, Denies fatigue, Denies fever(s), Denies headache(s) and Denies weakness ENT Denies dizziness and Denies headache(s) Card Denies chest pain, Denies lightheadedness, Denies dyspnea and Denies other (Palpitations) Resp Denies cough, Denies dyspnea, Denies wheezing and Denies other ( shortness of breath) Musc Denies numbness and Denies tingling Neuro Denies dizziness, Denies headache(s), Denies numbness, Denies tingling, Denies paresthesias and Denies weakness Psych Denies anxiety and Denies depression Endo Denies fatigue Aller/Immun Denies wheezing Physical exam (Primary Care) Vital Signs: Last Vital Signs Temp 98.4 F 03/07/24 14:35 Pulse 80 03/07/24 14:35 Resp 16 03/07/24 14:35 BP 120/56 L 03/07/24 14:35 Pulse Ox 99 03/07/24 14:35 Oxygen Delivery Method Room Air 03/07/24 14:35 BMI result Body Mass Index 21.4 Tobacco/Smoking Status: Tobacco use Status Tobacco use date assessed 09/01/23 03/07/24 14:38 Patient Tobacco Use Status Never used Tobacco 03/07/24 14:38 e-Cigarette/Vaping Use Never Used 03/07/24 14:38 Thrive Assessment: Date of Thrive Assessment Date Thrive assessed 09/01/23 03/07/24 14:38 Const General: no acute distress and well developed Nutritional Appearance: well nourished Orientation/consciousness: patient oriented x3 HENMT Head: Yes normocephalic and Yes atraumatic Eyes General: appearance normal, both eyes and all related structures Pupils: Equal, round and reactive pupils present EOM: EOMs intact bilaterally Resp Effort & Inspection: normal respiratory effort Auscultation: clear to auscultation bilaterally Cardio Rate: regular rate Rhythm: regular rhythm Heart sounds: S1 normal heart sound present, S2 normal heart sound present, no gallops, no murmurs and no rubs Neuro General: patient oriented x3 and gait normal Cranial nerves: Yes Equal, round and reactive pupils present Psych Affect: normal affect Coding Level of Care Code Est Pt Level 4 (51216) Diagnoses Tremor R25.1 Syphilis (acquired) A53.9 Assessment & Plan Assessment & Plan (1) Tremor: Comment: exaggerated physiological, essential tremors Code(s): R25.1 - Tremor, unspecified Category: Medical Plan: Mild?tremor?remains?though?improved Continue?magnesium Follow-up?with?Neurology?as?recommended (2) Syphilis (acquired): Comment: Titers resolving No concerns Code(s): A53.9 - Syphilis, unspecified Category: Medical Plan: Patient?has?completed?antibiotic?course He?is?feeling?well Follow-up?with?Infectious?Disease - he?is?on?HIV?prophylaxis?and?will?continue?screening Orders: Orders Comprehensive [place]. Panel Fast Today Z00.00 - Encounter for general adult medical examination without abnormal findings Lipid Panel Today Z00.00 - Encounter for general adult medical examination without abnormal findings Microalbumin, Random (w Creat) Today I10 - Essential (primary) hypertension TSH reflex Free T4 Today Z00.00 - Encounter for general adult medical examination without abnormal findings UA and rflx microscopic Today Z00.00 - Encounter for general adult medical examination without abnormal findings Complete Blood Count Auto Diff Today Z00.00 - Encounter for general adult medical examination without abnormal findings
[2024-03-07 14:35] VITALS: BP 120/56; PULSE 80; RESP 16; TEMP 36.9; O2SAT 99; BMI 21.4
== END 2024-03-07 15:40 | disposition home or self-care (01) ==
PROVIDERS: PCP Family Medicine; Visit Provider Family Medicine
DX: R25.1 Tremor, unspecified (principal); A53.9 Syphilis, unspecified

== ENCOUNTER → 2024-03-07 14:21 | Outpatient (BNVA) | payer OTHER, SELFPAY | PROVIDERS: PCP Family Medicine; Visit Provider Family Medicine | DX: R25.1 Tremor, unspecified (principal); A53.9 Syphilis, unspecified | CPT/HCPCS: 99212 ==

== ENCOUNTER 2024-04-14 11:05 | Outpatient (REF) | payer OTHER, SELFPAY ==
[2024-04-14 11:40] LABS: MANUAL DIFF FLAG NO
[2024-04-14 12:04] LABS: Basophils Absolute Auto 0.1 X10*3/uL (0.0-0.2); Basophils Percent Auto 0.8 % (0-2); Eosinophils Absolute Auto 0.2 X10*3/uL (0.0-0.4); Eosinophils Percent Auto 2.6 % (0-4); Hematocrit 40.7 % (42.0-52.0); Hemoglobin 13.9 g/dl (14.0-18.0); Imm Gran Abs Auto 0.02 X10*3/uL (0.00-0.03); Imm Gran Pct Auto 0.3 % (0.0-0.4); Lymphocytes Absolute Auto 1.7 X10*3/uL (1.2-4.9); Lymphocytes Percent Auto 27.6 % (20-40); Mean Corpuscular HGB Conc 34.2 g/dl (31.0-36.0); Mean Corpuscular Hemoglobin 28.9 pg (27.0-33.0); Mean Corpuscular Volume 84.6 fL (80.0-98.0); Mean Platelet Volume 10.4 fL (9.4-12.4); Monocytes Absolute Auto 0.6 X10*3/uL (0.1-1.2); Monocytes Percent Auto 9.6 % (2-11); Neutrophils Absolute Auto 3.6 x10*3/uL (2.0-8.3); Neutrophils Percent Auto 59.1 % (45-73); Platelet Count 245 X10*3/uL (160-400); Red Blood Count 4.81 X10*6/uL (4.60-5.80); Red Cell Distribution Width 14.3 % (11.0-16.0); White Blood Count 6.2 X10*3/uL (4.8-10.8)
[2024-04-14 12:55] LABS: Alanine Aminotransferase 11 U/L (0-40); Albumin Level 4.5 g/dL (3.5-5.0); Alkaline Phosphatase 46 U/L (39-117); Anion Gap 11 (12-20); Aspartate Amino Transferase 21 U/L (5-37); Bilirubin Total 0.7 mg/dL (0.0-1.0); Blood Urea Nitrogen 15 mg/dL (9-16); Calcium 10.3 mg/dL (8.4-10.2); Carbon Dioxide 26 mmol/L (22-29); Chloride 106 mmol/L (96-108); Cholesterol 152 mg/dL (<200); Estimated Glomerular Filt Rate > 60; Glucose Fasting 89 mg/dL (60-99); HDL Cholesterol 58 mg/dL (>40); LDL Cholesterol Calculated 86 mg/dL (<100); Potassium 4.2 mmol/L (3.3-5.1); Sodium 139 mmol/L (135-145); Total Protein 7.7 g/dL (6.5-8.0); Triglycerides 44 mg/dL (<150)
[2024-04-14 12:59] LABS: Appearance Urine Clear; Color Urine Yellow; Glucose Urine UA Negative (Negative); Leukocyte Esterase Urine Negative (Negative); Nitrite Urine Negative (Negative); Specific Gravity - Urine 1.015 (1.005-1.025); UMIC TRIGGER UACC YES; Urine Blood Trace (Negative); Urine Ketones Negative (Negative); Urine Protein Negative (Neg-Trace)
[2024-04-14 13:02] LABS: TSH reflex Free T4 1.69 uIU/mL (0.32-4.0)
[2024-04-14 13:06] LABS: Bacteria Urine None Seen (None Seen); Hyaline Casts Urine 0-2 /LPF (0-2); Squamous Epithelial Cell Urine 0-2 /HPF (0-2); WBC Urine 0-5 /HPF (0-5)
[2024-04-14 13:12] LABS: HIV AB/AG Nonreactive (Nonreactive); HIV Num 1 0.06 S/CO (0.00-0.99)
[2024-04-14 13:15] LABS: Creatinine Urine 76.09 mg/dL; Microalbumin Urine < 5.0 mg/L
[2024-04-18 15:23] LABS: RPR Rapid Plasma Reagin REACTIVE (NON-REACTIVE)
== END 2024-04-14 11:06 | disposition home or self-care (01) ==
LOC: HO.LAB 11:05
PROVIDERS: Nurse Practitioner Family; Absent Provider Family Medicine; PCP Family Medicine; Visit Provider Internal Medicine
DX: Z00.00 Encounter for general adult medical examination without abnormal findings (principal); I10 Essential (primary) hypertension; Z29.81 Encounter for HIV pre-exposure prophylaxis; A53.9 Syphilis, unspecified
CPT/HCPCS: 36415; 80053; 80061; 81001; 82043; 82570; 84443; 85025; 86592; 86593; 87389

== ENCOUNTER 2024-04-20 13:03 | Outpatient (AMB) | payer OTHER, SELFPAY ==
--- NOTE | 2024-04-20 13:04 | MHC.OFFVIS ---
Vital Signs 04/20/24 13:09 Height 5 ft 10 in Weight 155 lb BMI 22.2 Pulse 81 Pulse Source Pulse Oximeter Pulse Oximetry (%) 99 Intake Visit Reasons: f/u 3 mth,lab Allergies No Known Allergies Allergy (Verified 04/20/24 13:09) HPI HPI f/u 3 mth,lab: Details: He is following up Prep for HIV prophylaxis. He has been taking Truvada but gives him nausea and wants to try Descovy. He also has syphilis titer still elevated at 1:8. He is seeing Dermatology for irritattion in groin area but doesnt show me.So far rash is not improving. [facility] Medical History Migraine Cerebral atrophy Encounter for pre-exposure prophylaxis for HIV No pertinent past medical history Surgical History Hx of colonoscopy History of esophagogastroduodenoscopy (EGD) History of sleeve gastrectomy Family History Mother High blood pressure Father High blood pressure Diabetes Maternal Grandmother High blood pressure High cholesterol Paternal Grandmother High blood pressure High cholesterol Maternal Grandfather High blood pressure High cholesterol Cardiovascular disease Paternal Grandfather High blood pressure High cholesterol Social History Household Members: Friend(s) Housing: House 75 years or older and lives alone: No Alcohol intake: never Patient Tobacco Use Status: Never used Tobacco e-Cigarette/Vaping Use: Never Used Second Hand Smoke Exposure: No service: No Current occupational status: employed 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 - Encounter for HIV pre-exposure prophylaxis Category: Medical Plan: Another PCN shot syphilis concern,declines Doxycycline prep. Angelina See in three months with labs before. Orders: Orders HIV Ab/Ag 3 Months - Encounter for HIV pre-exposure prophylaxis RPR Monitor reflex titer 3 Months - Encounter for HIV pre-exposure prophylaxis Medications: New penicillin G benzathine 2.4 mmu IM ONCE 1 ea 0RF 1 day emtricitabine-tenofovir alafen 200-25 mg (Descovy) 1 tab PO DAILY 30 tabs 2RF 30 days penicillin G benzathine 2.4 mmu IM ONCE 1 day 1 ea 0RF Discontinued emtricitabine-tenofovir (TDF) 200-300 mg (Truvada) Discontinued Reason: Doctor's Order 1 tab PO DAILY 30 days 30 tabs 3RF Coding Level of Care Code Est Pt Level 4 (77120) Diagnoses Encounter for pre-exposure prophylaxis for HIV
[2024-04-20 13:09] VITALS: PULSE 81; O2SAT 99; BMI 22.2
== END 2024-04-20 15:17 | disposition home or self-care (01) ==
PROVIDERS: PCP Family Medicine; Visit Provider Internal Medicine
DX: Z29.81 Encounter for HIV pre-exposure prophylaxis (principal)
CPT/HCPCS: 99214

== ENCOUNTER → 2024-04-20 13:03 | Outpatient (BNVA) | payer OTHER, SELFPAY | PROVIDERS: PCP Family Medicine; Visit Provider Internal Medicine | DX: Z29.81 Encounter for HIV pre-exposure prophylaxis (principal) | CPT/HCPCS: 96372; 99212; J0561 ==

== ENCOUNTER 2024-04-20 14:04 | Outpatient (AMB) | payer OTHER, SELFPAY ==
--- NOTE | 2024-04-20 14:06 | A.OFFVIS_ITS ---
<Statement entered by Elyssa Cruz MD - 04/24/24 19:22> not seen Intake Visit Reasons: penicillin Allergies No Known Allergies Allergy (Verified 04/20/24 13:09) PFSH Medical History Migraine Cerebral atrophy Encounter for pre-exposure prophylaxis for HIV No pertinent past medical history Surgical History Hx of colonoscopy History of esophagogastroduodenoscopy (EGD) History of sleeve gastrectomy Family History Mother High blood pressure Father High blood pressure Diabetes Maternal Grandmother High blood pressure High cholesterol Paternal Grandmother High blood pressure High cholesterol Maternal Grandfather High blood pressure High cholesterol Cardiovascular disease Paternal Grandfather High blood pressure High cholesterol Social History Household Members: Friend(s) Housing: House 75 years or older and lives alone: No Alcohol intake: never Patient Tobacco Use Status: Never used Tobacco e-Cigarette/Vaping Use: Never Used Second Hand Smoke Exposure: No service: No Current occupational status: employed 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 Current occupational exposures/hazards: No Sexual orientation: Unable to collect Gender identity: Unable to collect Cognitive needs: No Hearing needs: No Vision needs: No Office Meds penicillin G benzathine 2,400,000 unit/4 mL intramuscular syringe Performing Provider: Elyssa Cruz MD Performing Location: [facility] Administered by: Thuy Her on 04/20/24 14:23 Dose Route Admin Location Dispensed Lot Number Expiration Date [facility] Extruder Operator Horizontal 2.4 mmu IM RGM 4 mL [id number] 04/23/26 27333-508-01 [employer] Assessment & Plan Assessment & Plan (1) Syphilis (acquired): Comment: Titers resolving No concerns Code(s): A53.9 - Syphilis, unspecified Category: Medical Orders: Orders AMB Penicillin Injection 04/20/24 A53.9 - Syphilis, unspecified Coding Diagnoses Syphilis (acquired) A53.9
== END 2024-04-20 15:17 | disposition home or self-care (01) ==
LOC: HO.HID 14:05
PROVIDERS: PCP Family Medicine; Visit Provider Internal Medicine
DX: A53.9 Syphilis, unspecified (principal)

== ENCOUNTER 2024-06-20 09:57 | Outpatient (REF) | payer OTHER, SELFPAY ==
[2024-06-20 11:36] LABS: HIV AB/AG Nonreactive (Nonreactive); HIV Num 1 0.06 S/CO (0.00-0.99)
--- OUTSIDE RECORDS SUMMARY | 2024-06-20 14:32 | XMS_ITS | Clinical Summary ---
Author Organization [employer] Address [address] [place] [address] [address] [place] [address] Care Team Providers Care Clerical Adjuster Name Role Phone Unavailable Primary Care Provider Unavailabl e Allergies No known active allergies Medications No known medications Active Problems Problem Noted Date Diagnosed Date Aphthous ulcer 03/11/2023 Periodontal disease 03/03/2023 Dental calculus 03/03/2023 Social History Tobacco Use Types Packs/Day Years Used Date Smoking Tobacco: Never Smokeless Tobacco: Never Tobacco Cessation:Counseling Given: Not Answered Alcohol Use Standard Drinks/Week Comments Never 0 (1 standard drink = 0.6 oz pur e alcohol) Sex and Gender Information Value Date Recorded Sex Assigned at Male 10/09/2022 9:31 AM EDT Legal Sex Male 9:25 AM EDT Gender Identity Male 10/09/2022 9:31 AM EDT Sexual Orientation Choose not to disclose 2022 9:31 AM EDT Last Filed Vital Signs Vital Sign Reading Time Taken Comments Blood Pressure 122/72 03/25/2023 9:01 AM EDT Pulse 68 03/25/2023 9:01 AM EDT Temperature - - Respiratory Rate - - Oxygen Saturation - - Inhaled Oxygen Concentration - - Weight - - Height - - Body Mass Index - - Plan of Treatment Health Maintenance Due Date Last Done Comments Depression Screening 1997 HIV Screening 1997 SDOH Screening 1997 Alcohol/Substance Use Screening 2009 Family Planning (PISQ) 2012 Hepatitis C Screening 2015 DTaP/Tdap/Td Vaccines (1 - Tdap) 2016 Hepatitis B Vaccines (1 of 3 - 19+ 3-dose series) 2016 Dental Oral Exam 05/09/2023 11/06/2022 Dental Prophylaxis 05/24/2023 11/21/2022 Dental X-Ray: Bitewings 11/08/2023 11/07/19 23, 10/09/2022 COVID-19 Vaccine (4 - 2023-2 5 season) 2024 04/12/2021, 10/10/2020, 09/12/2020 Influenza Vaccine (#1) 2024 Tobacco Screening 03/25/2024 03/25/2023 Dental X-Ray: Full Mouth 11/07/2025 11/06/2022 Zoster Vaccines (1 of 2) 2047 RSV Patients and Patients Aged 60 years or older (1 - 1-dose 75+ series) 2072 HIB Vaccines Aged Out No longer eligi ble based on patient's age to complete this topic HPV Vaccines Aged Out No longer eligi ble based on patient's age to complete this topic Hepatitis A Vaccines Aged Out No long er eligible based on patient's age to complete this topic IPV Vaccines Aged Out No longer eligi ble based on patient's age to complete this topic Meningococcal Vaccine Aged Out No joel stacie eligible based on patient's age to complete this topic Pneumococcal Vaccine: Pediatrics (0 to 5 Years) and At-Risk Patients (6 to 64 Years) Aged Out No longer eligible b ased on patient's age to complete this topic RSV under 20 months Aged Out No longe r eligible based on patient's age to complete this topic Rotavirus Vaccines Aged Out No longer eligible based on patient's age to complete this topic Procedures Procedure Name Priority Date/Time Associated Diagnosis Comments PROPHYLAXIS - ADULT Routine 11/21/2022 9 :45 AM EDT Gingivitis DIAGNOSTIC - DIAGNOSTIC IMAGING - INTRAORAL - COMPREHENSIVE SERIES OF RADIOGRAPHIC IMAGES Routine 11/06/2022 1:00 PM EDT Gingivitis COMPREHENSIVE ORAL EVALUATION - NEW OR ESTABLISHED PATIENT Routine 11/06/2022 1:00 PM EDT Gingivitis from Last 3 Months or Most Recently Relevant to Health Maintenance Insurance [facility] MEDICAID STAND ADULT
--- OUTSIDE RECORDS SUMMARY | 2024-06-20 14:32 | XMS_ITS | Encounter Summary ---
Author Organization [employer] Address [address] [facility] [address] [place] [address] Care Team Providers Care Outpatient Interviewing Clerk Name Role Phone Unavailable Primary Care Provider Unavailabl e Encounter Details Date Type Department Care Team (Late st Contact Info) Description 12/03/[address] [facility] [address] [place] [address] Fly, Brittney [address] [place] [address] Social History Tobacco Use Types Packs/Day Years Used Date Smoking Tobacco: Never Smokeless Tobacco: Never Alcohol Use Standard Drinks/Week Comments Never 0 (1 standard drink = 0.6 oz pur e alcohol) Sex and Gender Information Value Date Recorded Sex Assigned at Male 10/09/2022 9:31 AM EDT Legal Sex Male 9:25 AM EDT Gender Identity Male 10/09/2022 9:31 AM EDT Sexual Orientation Choose not to disclose 2022 9:31 AM EDT COVID-19 Exposure Response Date Recorded In the last 10 days, have yo u been in contact with someone who was confirmed or suspected to have Coronavirus/COVID-19? No / Unsure 11/21/2022 12:32 AM EDT documented as of this encounter Plan of Treatment Not on file documented as of this encounter Visit Diagnoses Not on filedocumented in this encounter
--- OUTSIDE RECORDS SUMMARY | 2024-06-20 14:32 | XMS_ITS | Encounter Summary ---
Author Organization [employer] Address [address] [facility] [address] [place] [address] Care Team Providers Care Network Controller Name Role Phone Unavailable Primary Care Provider Unavailabl e Encounter Details Date Type Department Care Team (Late st Contact Info) Description 11/27/2022 Abstract [facility] [address] [place] [address] Fly, Brittney [address] [place] [address] Social History Tobacco Use Types Packs/Day Years [...]
[2024-06-22 13:34] LABS: RPR Rapid Plasma Reagin REACTIVE (NON-REACTIVE)
== END 2024-06-20 09:58 | disposition home or self-care (01) ==
LOC: HO.LAB 09:57
PROVIDERS: PCP Family Medicine; Visit Provider Internal Medicine
DX: Z29.81 Encounter for HIV pre-exposure prophylaxis (principal)
CPT/HCPCS: 36415; 86592; 86593; 87389

== ENCOUNTER → 2024-06-29 13:03 | Outpatient (BNVA) | payer OTHER, SELFPAY | PROVIDERS: PCP Family Medicine; Visit Provider Internal Medicine | DX: A53.9 Syphilis, unspecified (principal); Z29.81 Encounter for HIV pre-exposure prophylaxis | CPT/HCPCS: 99212 ==

== ENCOUNTER 2024-09-01 17:59 | Emergency (ER) | payer OTHER, SELFPAY ==
[2024-09-01 18:19] VITALS: BP 143/90; PULSE 80; RESP 16; TEMP 37.1; O2SAT 99; BMI 22.5
--- NOTE | 2024-09-01 18:20 | ED_ITS ---
HPI - Skin/Abscess/Foreign Bdy General Chief complaint: Skin/Abscess/Foreign Body Stated complaint: pain upper left extremity Time Seen by Provider: 09/02/24 00:02 Source: patient Mode of arrival: ambulatory Limitations: no limitations History of Present Illness ED Provider: Dr. Bree Wiley HPI narrative: Patient comes to the emergency room complaining of an absence in the left inner thigh. Patient states that it has been there for 3-4 days. Erythematous, painful, atraumatic. Patient denies any testicular pain or penile drainage. Related Data Previous Rx's ?Medication ?Instructions ?Recorded cholecalciferol (vitamin D3) 25 25 mcg PO DAILY 90 days #90 tabs 10/22/23 mcg (1,000 unit) tablet magnesium oxide 400 mg PO BEDTIME #30 caps 01/20/24 riboflavin (vitamin B2) 400 mg 400 mg PO QAM #30 tabs 01/20/24 tablet penicillin G benzathine 2.4 2.4 mmu IM ONCE 1 day #1 ea 04/20/24 million unit intramuscular suspension doxycycline hyclate 100 mg capsule 100 mg PO BID 30 days #60 caps 06/29/24 emtricitabine 200 mg-tenofovir 1 tab PO DAILY 30 days #30 tabs 06/29/24 alafenamide fumarate 25 mg tablet (Descovy) cephalexin 500 mg capsule 500 mg PO BID #14 caps 09/02/24 doxycycline hyclate 100 mg capsule 100 mg PO BID #14 caps 09/02/24 Allergies Allergy/AdvReac Type Severity Reaction Status Date / Time No Known Allergies Allergy Verified 09/01/24 18:21 Review of Systems Review of Systems: Constitutional : No Weight loss, No Fever, No Chills, No Night Sweats, No Fatigue, No Malaise ENT/Mouth : No Hearing loss, No Ear Pain, No Nasal Congestion, No Sinus Pain, No Hoarseness, No sore throat, No Rhinorrhea, No Swallowing Difficulty Eyes: No Eye Pain, No Swelling, No Redness, No Foreign Body, No Discharge, No Vision Changes Cardiovascular : No Chest Pain, No SOB, No Dyspnea on Exertion, No Orthopnea, No Edema, No Palpitations Respiratory : No Cough, No Sputum, No Wheezing, No Smoke Exposure, No Dyspnea Gastrointestinal : No Nausea, No Vomiting, No Diarrhea, No Constipation, No abdominal Pain, No Hematochezia, No Melena Genitourinary : no irregular bleeding, No Dysuria, No Urinary Frequency, No Hematuria, No Urinary Incontinence, No Urgency, No Flank Pain, No Urinary Flow Changes, No Hesitancy Musculoskeletal : No joint pain, No Myalgias, No Joint Swelling Skin : Complaining of a painful abscess in the left inner thigh Neuro : No Weakness, No Numbness, No Paresthesias, No Loss of Consciousness, No Dizziness, No Headache Psych : No Anxiety/Panic, No Depression, No SI/HI/AH/VH, No Social Issues, Heme/Lymph: No Bruising, No Bleeding,No Lymphadenopathy Endocrine : No Polyuria, No Polydipsia, No Temperature Intolerance PMFSH Past Medical History Medical History Migraine Cerebral atrophy Encounter for pre-exposure prophylaxis for HIV No pertinent past medical history Surgical History Hx of colonoscopy History of esophagogastroduodenoscopy (EGD) History of sleeve gastrectomy Family History Family History Mother High blood pressure Father High blood pressure Diabetes Maternal Grandmother High blood pressure High cholesterol Paternal Grandmother High blood pressure High cholesterol Maternal Grandfather High blood pressure High cholesterol Cardiovascular disease Paternal Grandfather High blood pressure High cholesterol Social History Social History Household Members: Friend(s) Housing: House Alcohol intake: never Patient Tobacco Use Status: Never used Tobacco Smoked in Last 30 Days: No e-Cigarette/Vaping Use: Never Used Second Hand Smoke Exposure: No Use of substances other than those prescribed or required for medical reasons: No Do you have a plan to hurt others: No Plan service: No Current occupational status: employed Current occupation: [employer] Current occupational exposures/hazards: No Sexual orientation: Unable to collect Gender identity: Unable to collect Cognitive needs: No Hearing needs: No Vision needs: No Physical Exam Vital Signs: Vital Signs: Last Vital Signs Temp 99.3 F 09/01/24 23:13 Pulse 84 09/01/24 23:13 Resp 16 09/01/24 23:13 BP 121/72 09/01/24 23:23 Pulse Ox 99 09/01/24 23:13 O2 Del Method Room Air 09/01/24 23:13 BMI result Body Mass Index 22.5 Const: Other: Appearance: Alert. Oriented X3. No acute distress. Eyes: Pupils equal, round and reactive to light. ENT: Pharynx normal. Neck: Normal inspection. Neck supple. No lymph nodes noted. No crepitus CVS: Normal heart rate and rhythm. Pulses normal. Normal S1 and S2 Respiratory: No respiratory distress. Breath sounds normal. No Wheezing. No rales Abdomen: Soft and nontender. No rigidity. No distention. : Normal male genitalia Skin: Skin warm and dry. Normal skin color. Normal skin turgor. Skin on left inner thigh, there is 4 cm x 4 cm abscess visualized with ultrasound. Extremities: No lower extremity edema. No Lacerations. No Rash Neuro: Oriented X 3. No motor deficit. No sensory deficit. Moving all extremities. No slurred speech. CN 2 through 12 grossly intact Psych: calm, cooperative, normal affect Course Course Course Narrative: This is a Rapid Medical Exam performed in triage by Jasmin Melo PA-C. Full HPI, ROS and PE to be performed by primary ED provider. 29yo M presenting to the ED c/o painful, erythematous rash with swelling & bleeding to groin x1 wk. Denies testicular/penile pain, discharge. Is sexually active, denies new partners PE: area not evaluated in triage Plan: UA, eval by main provider Medications Administered Discontinued Medications Generic Name Dose Route Start Last Admin Trade Name Freq PRN Reason Stop Dose Admin Acetaminophen 650 mg 09/01/24 23:17 09/01/24 23:23 Acetaminophen 325 Mg Tablet PO 09/01/24 23:18 650 mg ONCE ONE Administration Cephalexin HCl 500 mg 09/02/24 00:21 09/02/24 00:30 Cephalexin 500 Mg Capsule PO 09/02/24 00:22 500 mg ONCE ONE Administration Doxycycline Monohydrate 100 mg 09/02/24 00:21 09/02/24 00:30 Doxycycline Monohydrate 100 Mg Capsule PO 09/02/24 00:22 100 mg ONCE ONE Administration Tramadol HCl 50 mg 09/02/24 00:21 09/02/24 00:30 Tramadol Hcl 50 Mg Tablet PO 09/02/24 00:22 50 mg ONCE ONE Administration Medical Decision Making Medical Decision Making MDM Narrative: I discussed with the patient that he has an abscess. Needs to between. Patient agrees to proceed with I and D Patient needed 20 mL of 1% no epinephrine lidocaine Fifteen size blade was used for incision and drainage, A moderate amount of pus was drained. Patient was given p.o. cephalexin and doxycycline and p.o. tramadol I discussed with the patient to keep a close eye on the skin. Patient asked to return in 24-48 hours for wound check and packing removal. If anything changes, patient needs to return immediately to the ED. Differential Diagnosis Differential Diagnoses: The differential diagnosis associated with the presentation includes (Cellulitis, abscess) Lab Data [facility] Lab Attestation statement: I reviewed the patient's lab results. Labs: Lab Results 09/01/24 Range/Units 23:25 Urine Color Dark Yellow Urine Appearance Clear Urine pH 6.0 (5.0-9.0) Ur Specific [place] >= 1.030 H (1.005-1.025) Urine Protein Trace (Neg-Trace) mg/dL Urine Glucose (UA) Negative (Negative) mg/dL Urine Ketones 40 (Negative) mg/dL Urine Blood Moderate (2+) H (Negative) Urine Nitrite Negative (Negative) Ur Leukocyte Esterase Negative (Negative) Urine RBC >20 H (0-2) /HPF Urine WBC 0-5 (0-5) /HPF Ur Squamous Epith Cells 0-2 (0-2) /HPF Urine Bacteria None Seen (None Seen) Hyaline Casts 0-2 (0-2) /LPF Procedures Abscess I/D Site: lower extremity Side (if applicable): left Local Anesthetic: lidocaine 1% Amount of anesthesia used (mL): 20 Technique: incised with blade and ultrasound guided Amount of fluid expressed (mL): 15 Sent for culture/gram staining?: No Packing used?: iodoform Discharge Plan Discharge Clinical Impression: Abscess Patient Disposition: Home, Self-Care Instructions: Abscess (ED), Abscess Incision and Drainage (DC) Additional Instructions: Please return in 24-48 hours for wound check and packing removal. Please follow-up with your primary care physician tomorrow. If you have any worsening or new symptoms, please return to the emergency room or call 911 Prescriptions: New cephalexin 500 mg capsule 500 mg PO BID Qty: 14 0RF doxycycline hyclate 100 mg capsule 100 mg PO BID Qty: 14 0RF No Action cholecalciferol (vitamin D3) 25 mcg (1,000 unit) tablet 25 mcg PO DAILY 90 Days Qty: 90 1RF magnesium oxide 400 mg magnesium capsule 400 mg PO BEDTIME Qty: 30 6RF riboflavin (vitamin B2) 400 mg tablet 400 mg PO QAM Qty: 30 6RF penicillin G benzathine 2.4 million unit suspension for reconstitution 2.4 mmu IM ONCE 1 Days Qty: 1 0RF doxycycline hyclate 100 mg capsule 100 mg PO BID 30 Days Qty: 60 2RF Descovy 200-25 mg tablet 1 tab PO DAILY 30 Days Qty: 30 2RF Stand Alone Forms: Work/School Release Print Language: Prydeinig
[2024-09-01 23:13] VITALS: BP 131/71; PULSE 84; RESP 16; TEMP 37.4; O2SAT 99
[2024-09-01 23:23] VITALS: BP 121/72
[2024-09-01] MEDS: Acetaminophen 325 MG TABLET 650 MG PO (23:23)
[2024-09-01 23:32] LABS: Appearance Urine Clear; Color Urine Dark Yellow; Glucose Urine UA Negative (Negative); Leukocyte Esterase Urine Negative (Negative); Nitrite Urine Negative (Negative); Specific Gravity - Urine >= 1.030 (1.005-1.025); UMIC TRIGGER UACC YES; Urine Blood Moderate (2+) (Negative); Urine Ketones 40 mg/dL (Negative); Urine Protein Trace mg/dL (Neg-Trace)
[2024-09-01 23:37] LABS: Bacteria Urine None Seen (None Seen); Hyaline Casts Urine 0-2 /LPF (0-2); RBC Urine >20 /HPF (0-2); Squamous Epithelial Cell Urine 0-2 /HPF (0-2); WBC Urine 0-5 /HPF (0-5)
[2024-09-02] MEDS: cephALEXin 500 MG CAPSULE PO (00:30)
[2024-09-02] MEDS: Doxycycline Monohydrate 100 MG CAPSULE PO (00:30)
[2024-09-02] MEDS: traMADoL HCL 50 MG TABLET PO (00:30)
--- OUTSIDE RECORDS SUMMARY | 2024-09-02 01:36 | XMS_ITS | Encounter Summary ---
Author Organization [employer] Address [address] [place] [address] Care Team Providers Care Disability Attorney Name Role Phone Unavailable Primary Care Provider Unavailabl e Encounter Details Date Type Department Care Team (Late st Contact Info) Description 12/03/2022 Abstract [facility] ADULT DENTAL [address] [place] [address] Fly, Brittney [address] [place] [address] Social History Tobacco Use Types Packs/Day Years [...]
--- OUTSIDE RECORDS SUMMARY | 2024-09-02 01:36 | XMS_ITS | Clinical Summary ---
Author Organization [employer] Address [address] [place] [address] [address] [place] [address] Care Team Providers Care Plant Taxonomist Name Role Phone Unavailable Primary Care Provider [...] 5 Years) and At-Risk Patients (6 to 49) Years) Aged Out No longer eligible b [...] Routine 11/21/2022 9 :45 AM EDT Gingivitis INTRAORAL - COMPLETE SERIES OF RADIOGRAPHIC IMAGES Routine 11/06/2022 1:00 PM EDT Gingivitis COMPREHENSIVE ORAL EVALUATION - NEW OR ESTABLISHED PATIENT Routine 11/06/2022 1:00 PM EDT Gingivitis from Last 3 Months or Most Recently Relevant to Health Maintenance Insurance [facility] MEDICAID STAND ADULT
[2024-09-02 01:50] VITALS: BP 121/72; PULSE 75; RESP 16; TEMP 37.1; O2SAT 95
== END 2024-09-02 01:51 | disposition home or self-care (01) ==
PROVIDERS: Physician Assistant; Emergency Provider Emergency Medicine; PCP Family Medicine
DX: L02.416 Cutaneous abscess of left lower limb (principal); Z79.899 Other long term (current) drug therapy
CPT/HCPCS: 10060; 81001; 99283; 99284

== ENCOUNTER 2024-09-03 16:34 | Emergency (ER) | payer OTHER, SELFPAY ==
[2024-09-03 16:50] VITALS: BP 124/73; PULSE 62; RESP 16; TEMP 36.7; O2SAT 100; BMI 22.5
--- NOTE | 2024-09-03 16:59 | ED.GENADULT ---
HPI - General Adult General Chief complaint: Skin/Abscess/Foreign Body Stated complaint: removal wound packing Time Seen by Provider: 09/03/24 19:23 Source: patient Mode of arrival: ambulatory Limitations: no limitations History of Present Illness ED Provider: ness lua np HPI narrative: Patient is a 29-year-old male who presents emergency department for wound check and packing removal. Was seen in the emergency department 09/01/2024 and advised to return within 24-48 hours for removal of packing from a left inner thigh abscess that was incised and drained. Endorses compliance with antibiotics. No increasing pain redness or swelling Related Data Previous Rx's ?Medication ?Instructions ?Recorded cholecalciferol (vitamin D3) 25 25 mcg PO DAILY 90 days #90 tabs 10/22/23 mcg (1,000 unit) tablet magnesium oxide 400 mg PO BEDTIME #30 caps 01/20/24 riboflavin (vitamin B2) 400 mg 400 mg PO QAM #30 tabs 01/20/24 tablet penicillin G benzathine 2.4 2.4 mmu IM ONCE 1 day #1 ea 04/20/24 million unit intramuscular suspension doxycycline hyclate 100 mg capsule 100 mg PO BID 30 days #60 caps 06/29/24 emtricitabine 200 mg-tenofovir 1 tab PO DAILY 30 days #30 tabs 06/29/24 alafenamide fumarate 25 mg tablet (Descovy) cephalexin 500 mg capsule 500 mg PO BID #14 caps 09/02/24 doxycycline hyclate 100 mg capsule 100 mg PO BID #14 caps 09/02/24 Allergies Allergy/AdvReac Type Severity Reaction Status Date / Time No Known Allergies Allergy Verified 09/03/24 16:50 Review of Systems Review of Systems: Yes all other systems are reviewed and are negative [facility] Past Medical History Medical History Migraine Cerebral atrophy Encounter for pre-exposure prophylaxis for HIV No pertinent past medical history Surgical History Hx of colonoscopy History of esophagogastroduodenoscopy (EGD) History of sleeve gastrectomy Family History Family History Mother High blood pressure Father High blood pressure Diabetes Maternal Grandmother High blood pressure High cholesterol Paternal Grandmother High blood pressure High cholesterol Maternal Grandfather High blood pressure High cholesterol Cardiovascular disease Paternal Grandfather High blood pressure High cholesterol Social History Social History Household Members: Friend(s) Housing: House Alcohol intake: never Patient Tobacco Use Status: Never used Tobacco e-Cigarette/Vaping Use: Never Used Second Hand Smoke Exposure: No Advance Directives: No Advance Directives Information Provided: No Do you have a plan to hurt others: No Plan service: No Current occupational status: employed 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 No acute distress.?Normal affect.? CVS: Heart sounds normal. Normal heart rate and rhythm.? Pulses normal.?? Respiratory: No respiratory distress.? Lung sounds clear to auscultation bilaterally? Skin: Skin warm and dry.? Normal skin color.? Left proximal medial thigh 3 X 3 cm erythematous area of induration. Upon removal of the dressing the packing had already fallen out on its own. There was a scant amount of purulent drainage. Neuro: Moves all extremities spontaneously. Sensation intact bilaterally Ambulates with normal steady gait. Course Course Course Narrative: This is a rapid medical exam performed by Joelle Ballesteros NP: Additional HPI, ROS, PE not included below will be deferred to primary provider. Patient is a 29-year-old male presenting for removal of packing from left thigh. Seen here Thurs night/Fri am. Reports occasional bleeding. Medical Decision Making Medical Decision Making MDM Narrative: Patient is a 29-year-old male who presents emergency department for evaluation, He is s/p incision and drainage on 09/01/2024 in his emergency department, had packing placed in advised to return for wound check and packing removal. Has been compliant with cephalexin and doxycycline. The dressing was removed the packing had already fallen out on its own. There is a 3 cm X 3 cm of erythematous induration with scant purulent discharge able to be manually expressed. Advised to continue taking antibiotics, reviewed strict return precautions, outpatient follow-up with primary care provider. All questions answered. Differential Diagnosis Differential Diagnoses: The differential diagnosis associated with the presentation includes (Cellulitis, abscess) External Record Review External record reviewed: Outpatient record Prescription Management I considered prescription management with: Antibiotic (As previously prescribed) Discharge Plan Discharge Clinical Impression: Abscess of skin or subcutaneous tissue Patient Disposition: Home, Self-Care Instructions: Abscess Follow-up (ED) Additional Instructions: Continue taking your antibiotics as previously prescribed. Monitor the area closely for any signs of worsening infection which includes but is not limited to increasing pain, increasing pus-like discharge, increasing redness or swelling, fevers, chills. As discussed, take a warm shower twice daily and allow the water to run over this area, you may gently massage the area to help with any additional drainage that may occur Follow-up with your primary care doctor. Return to emergency department any new or worsening symptoms or concerns. Prescriptions: No Action cholecalciferol (vitamin D3) 25 mcg (1,000 unit) tablet 25 mcg PO DAILY 90 Days Qty: 90 1RF cephalexin 500 mg capsule 500 mg PO BID Qty: 14 0RF doxycycline hyclate 100 mg capsule 100 mg PO BID Qty: 14 0RF magnesium oxide 400 mg magnesium capsule 400 mg PO BEDTIME Qty: 30 6RF riboflavin (vitamin B2) 400 mg tablet 400 mg PO QAM Qty: 30 6RF penicillin G benzathine 2.4 million unit suspension for reconstitution 2.4 mmu IM ONCE 1 Days Qty: 1 0RF doxycycline hyclate 100 mg capsule 100 mg PO BID 30 Days Qty: 60 2RF Descovy 200-25 mg tablet 1 tab PO DAILY 30 Days Qty: 30 2RF Referrals: Darvin Jimenez MD [Primary Care Provider] - Print Language: Paraguayan
[2024-09-03 20:42] VITALS: BP 123/78; PULSE 64; RESP 18; TEMP 36.6; O2SAT 100
[2024-09-03 20:45] VITALS: BP 123/78; PULSE 64; RESP 18; TEMP 36.6; O2SAT 100
== END 2024-09-03 20:46 | disposition home or self-care (01) ==
PROVIDERS: Emergency Provider Emergency Medicine Emergency Medical Services; PCP Family Medicine
DX: L02.416 Cutaneous abscess of left lower limb (principal); Z48.01 Encounter for change or removal of surgical wound dressing
CPT/HCPCS: 99282

== ENCOUNTER 2024-09-26 10:53 | Outpatient (REF) | payer OTHER, SELFPAY ==
--- OUTSIDE RECORDS SUMMARY | 2024-09-26 12:31 | XMS_ITS | Encounter Summary ---
Author Organization [employer] Address [address] [facility] [address] [place] [address] Care Team Providers Care Undercutter Operator Name Role Phone Unavailable Primary Care Provider Unavailabl e Encounter Details Date Type Department Care Team (Late st Contact Info) Description 11/27/2022 Abstract [facility] ADULT DENTAL [address] [place] [address] Fly, Brittney [address] [place] [address] Social History Tobacco Use Types Packs/Day Years [...]
--- OUTSIDE RECORDS SUMMARY | 2024-09-26 12:31 | XMS_ITS | Encounter Summary ---
Author Organization [employer] Address [address] [facility] [address] [place] [address] Care Team Providers Care Automotive Technician Instructor Name Role Phone Unavailable Primary Care Provider Unavailabl e Encounter Details Date Type Department Care Team (Late st Contact Info) Description 12/03/2022 Abstract [facility] ADULT DENTAL [address] [place] [address] Fly, Brittney [address] [place] [address] Social History Tobacco Use Types Packs/Day Years [...]
--- OUTSIDE RECORDS SUMMARY | 2024-09-26 12:31 | XMS_ITS | Clinical Summary ---
Author Organization [employer] Address [address] [place] [address] [address] [place] [address] Care Team Providers Care Jack Spinner Name Role Phone Unavailable Primary Care Provider [...] Most Recently Relevant to Health Maintenance Insurance [facility] MEDICAID STAND ADULT
[2024-09-26 12:38] LABS: HIV AB/AG Nonreactive (Nonreactive); HIV Num 1 0.08 S/CO (0.00-0.99)
[2024-09-27 14:33] LABS: RPR Rapid Plasma Reagin REACTIVE (NON-REACTIVE)
== END 2024-09-26 10:54 | disposition home or self-care (01) ==
LOC: HO.LAB 10:53
PROVIDERS: PCP Family Medicine; Visit Provider Internal Medicine
DX: A53.9 Syphilis, unspecified (principal); Z29.81 Encounter for HIV pre-exposure prophylaxis
CPT/HCPCS: 36415; 86592; 86593; 87389

== ENCOUNTER 2024-09-28 14:01 | Outpatient (AMB) | payer OTHER, SELFPAY ==
--- NOTE | 2024-09-28 14:17 | MHC.OFFVIS ---
Vital Signs 09/28/24 14:18 Height 5 ft 10 in Weight 161 lb BMI 23.1 Pulse 66 Pulse Source Pulse Oximeter Pulse Oximetry (%) 99 Oxygen Delivery Method Room Air Intake Visit Reasons: folow up syphillis Allergies No Known Allergies Allergy (Verified 09/28/24 14:18) HPI HPI folow up syphillis: Details: He still has syphilis titer 1:8. He is stil taking Prep. [facility] Medical History Migraine Cerebral atrophy Encounter for pre-exposure prophylaxis for HIV No pertinent past medical history Surgical History Hx of colonoscopy History of esophagogastroduodenoscopy (EGD) History of sleeve gastrectomy Family History Mother High blood pressure Father High blood pressure Diabetes Maternal Grandmother High blood pressure High cholesterol Paternal Grandmother High blood pressure High cholesterol Maternal Grandfather High blood pressure High cholesterol Cardiovascular disease Paternal Grandfather High blood pressure High cholesterol Social History Household Members: Friend(s) Housing: House 75 years or older and lives alone: No Alcohol intake: never Patient Tobacco Use Status: Never used Tobacco e-Cigarette/Vaping Use: Never Used Second Hand Smoke Exposure: No service: No Current occupational status: employed 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 Current occupational exposures/hazards: No Sexual orientation: Unable to collect Gender identity: Unable to collect Cognitive needs: No Hearing needs: No Vision needs: No Review of Systems Const All systems reviewed & are unremarkable except as noted in HPI and below Physical Exam Vital Signs: Last Vital Signs Pulse 66 09/28/24 14:18 Pulse Ox 99 09/28/24 14:18 Oxygen Delivery Method Room Air 09/28/24 14:18 BMI result Body Mass Index 23.1 Const General: cooperative Orientation/consciousness: patient oriented x3 HEENT Head: Yes normal to inspection Mouth: Normal oral and palatal mucosa present Eyes General: appearance normal, both eyes and all related structures Pupils: Equal, round and reactive pupils present Resp Effort & Inspection: normal respiratory effort Cardio Rate: regular rate Rhythm: regular rhythm GI Palpation (GI): Soft to palpation and nontender General: Yes no CVA tenderness Back/Spine/Pelvis Back: no CVA tenderness Skin General skin exam: no rashes or lesions noted Neuro General: patient oriented x3 Cranial nerves: Yes CN's II-XII intact bilaterally and Yes Equal, round and reactive pupils present Extrem General: Yes normal to inspection Psych Appearance: grossly normal Assessment & Plan Assessment & Plan (1) Encounter for pre-exposure prophylaxis for HIV: Comment: Continue Descovy and renewed today 30 d and 2 refill. Check HIV test and recheck syphilis test in 3 months LP if still elevated syphilis titer three month check. Code(s): - Encounter for HIV pre-exposure prophylaxis Category: Medical Plan na Orders: Orders RPR Monitor reflex titer 4 Months - Encounter for HIV pre-exposure prophylaxis HIV Ab/Ag 4 Months - Encounter for HIV pre-exposure prophylaxis Medications: Refilled emtricitabine-tenofovir alafen 200-25 mg (Descovy) 1 tab PO DAILY 30 tabs 2RF 30 days Coding Level of Care Code Est Pt Level 3 (37646) Diagnoses Encounter for pre-exposure prophylaxis for HIV Z
[2024-09-28 14:18] VITALS: PULSE 66; O2SAT 99; BMI 23.1
--- OUTSIDE RECORDS SUMMARY | 2024-09-28 15:18 | XMS_ITS | Clinical Summary ---
Author Organization [employer] Address [address] [place] [address] [address] [place] [address] Care Team Providers Care Advertising Supervisor Name Role Phone Unavailable Primary Care Provider [...] Most Recently Relevant to Health Maintenance Insurance DENTAL-[facility] MEDICAID STAND ADULT
--- OUTSIDE RECORDS SUMMARY | 2024-09-28 15:18 | XMS_ITS | Encounter Summary ---
Author Organization [employer] Address [address] [facility] [address] [place] [address] Care Team Providers Care Gusset Stitcher Name Role Phone Unavailable Primary Care Provider Unavailabl e Encounter Details Date Type Department Care Team (Late st Contact Info) Description 12/03/2022 Abstract [facility] ADULT DENTAL [address] [place] [address] Fly, Brittney [address] [place] [address] Social History Tobacco Use Types Packs/Day Years [...]
--- OUTSIDE RECORDS SUMMARY | 2024-09-28 15:18 | XMS_ITS | Encounter Summary ---
Author Organization [employer] Address [address] [place] [facility] [address] [place] [address] Care Team Providers Care Wildland Fire Fighter Name Role Phone Unavailable Primary Care Provider Unavailabl e Encounter Details Date Type Department Care Team (Late st Contact Info) Description 11/27/2022 Abstract [facility] AD[facility] D[facility] [address] [place] [address] Fly, Brittney [address] [place] [address] Social History Tobacco Use Types Packs/Day Years [...]
== END 2024-09-28 15:50 | disposition home or self-care (01) ==
LOC: HO.HID 14:01
PROVIDERS: PCP Family Medicine; Visit Provider Internal Medicine
DX: Z29.81 Encounter for HIV pre-exposure prophylaxis (principal)
CPT/HCPCS: 99213

== ENCOUNTER → 2024-09-28 14:01 | Outpatient (BNVA) | payer OTHER, SELFPAY | PROVIDERS: PCP Family Medicine; Visit Provider Internal Medicine | DX: Z29.81 Encounter for HIV pre-exposure prophylaxis (principal) | CPT/HCPCS: 99212 ==

== ENCOUNTER 2024-10-04 07:32 | Outpatient (AMB) | payer OTHER, SELFPAY ==
--- OUTSIDE RECORDS SUMMARY | 2024-10-04 07:34 | XMS_ITS | Encounter Summary ---
Author Organization [employer] Address [address] [facility] [address] [place] [address] Care Team Providers Care Highballer Name Role Phone Unavailable Primary Care Provider Unavailabl e Encounter Details Date Type Department Care Team (Late st Contact Info) Description 12/03/2022 Abstract [facility] ADULT DENTAL [address] [place] [address] Fly, Brittney [address] [place] [address] Social History Tobacco Use Types Packs/Day Years [...]
--- OUTSIDE RECORDS SUMMARY | 2024-10-04 07:34 | XMS_ITS | Encounter Summary ---
Author Organization [employer] Address [address] [facility] [address] [place] [address] Care Team Providers Care Architect Name Role Phone Unavailable Primary Care Provider Unavailabl e Encounter Details Date Type Department Care Team (Late st Contact Info) Description 11/27/2022 Abstract [facility] ADULT DENTAL [address] [place] [address] Fly, Brittney [address] [place] [address] Social History Tobacco Use Types Packs/Day Years [...]
--- OUTSIDE RECORDS SUMMARY | 2024-10-04 07:34 | XMS_ITS | Clinical Summary ---
Author Organization [employer] Address [address] [place] [address] [address] [place] [address] Care Team Providers Care Senior Coldfusion Developer Name Role Phone Unavailable Primary Care Provider [...] Most Recently Relevant to Health Maintenance Insurance [facility] MEDICAID STAND ADULT
--- NOTE | 2024-10-04 07:37 | A.OFFVIS_ITS ---
Vital Signs 10/04/24 07:38 Height 5 ft 10 in Weight 150 lb BMI 21.5 BP 124/72 Blood Pressure Location Rt brachial Position Sitting Pulse 61 Pulse Source Pulse Oximeter Pulse Oximetry (%) 100 Oxygen Delivery Method Room Air Intake Visit Reasons: Tremor/Degen dis of nerv-LVM Intake Note: Patient presents for follow up med trial sumatriptan Allergies No Known Allergies Allergy (Verified 10/04/24 07:39) Medication List - Last Reconciled 10/04/24 by Zoey Foster MD cholecalciferol (vitamin D3) 25 mcg PO DAILY 90 days emtricitabine-tenofovir alafen 200-25 mg (Descovy) 1 tab PO DAILY 30 days magnesium oxide 400 mg PO BEDTIME ondansetron HCl 4 mg PO Q8H PRN riboflavin (vitamin B2) 400 mg PO QAM sumatriptan succinate take 1 tab at onset of headache; if no relief may repeat 1 tab after at least 2 hrs; max = 4 tabs/24 hr PO HPI Comments Details: 29y/o right handed male comes for follow up of tremors and cerebral atrophy. He completed treatment for syhilis now.He follows up with ID Repeat MRI shows moderate atrophy. He reports headaches since age 21. It is unitemporal , light and noise sensitivity , nausea. No aura. It can last 2hrs -24hrs ( usually on rainy days ) He has 1 day a week. Magnesium and riboflavin did not decrease his headaches. Tylenol and ibuprofen does not help. He takes excedrin migraine - does not help. Previous history-He started having hand tremors more than 10 years ago . The tremors are mostly postural, worse with stress .He denies voice tremors or head tremors.He denies family h/o tremors, head injury .No exposure to psychiatric medications in the past . He was born full term but his mother had C section due to HTN.he denies any delayed milestones. He graduated and has a Masters in Global studies- [employer]. He has mild anxiety - seen by a psychologist.No panic attacks. He was seen by a neurologist in [place] . His CT brain showed atrophy .He was given escitalopram 10mg , sulurid ( antipsyhcotic) and propranolol 1/2 tab 50mg qd.He took the medications for 6 mths - helped a little.He did not like the side effects. His tremors does not affect his ADLs, or affect him socially.He denies any speech or gait difficulties . [facility] Medical History Migraine Cerebral atrophy Encounter for pre-exposure prophylaxis for HIV No pertinent past medical history Surgical History Hx of colonoscopy History of esophagogastroduodenoscopy (EGD) History of sleeve gastrectomy Family History Mother High blood pressure Father High blood pressure Diabetes Maternal Grandmother High blood pressure High cholesterol Paternal Grandmother High blood pressure High cholesterol Maternal Grandfather High blood pressure High cholesterol Cardiovascular disease Paternal Grandfather High blood pressure High cholesterol Social History Household Members: Friend(s) Housing: House 75 years or older and lives alone: No Alcohol intake: never Patient Tobacco Use Status: Never used Tobacco e-Cigarette/Vaping Use: Never Used Second Hand Smoke Exposure: No service: No Current occupational status: employed 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 Current occupational exposures/hazards: No Sexual orientation: Unable to collect Gender identity: Unable to collect Cognitive needs: No Hearing needs: No Vision needs: No Physical Exam Vital Signs: Last Vital Signs Pulse 61 10/04/24 07:38 BP 124/72 10/04/24 07:38 Pulse Ox 100 10/04/24 07:38 Oxygen Delivery Method Room Air 10/04/24 07:38 BMI result Body Mass Index 21.5 Const General: cooperative, healthy appearing and comfortable Nutritional Appearance: average body habitus Orientation/consciousness: patient oriented x3 Eyes Pupils: Equal, round and reactive pupils present Neuro Other: very mild tremors hands General: patient oriented x3, gait normal, tone normal, moves all extremities and no focal motor deficits Cranial nerves: Yes Facial sensation intact/muscles of mastication intact, Yes Equal, round and reactive pupils present, Yes Bilaterally intact EOM present, Yes Nystagmus not present, Yes Normal facial strength present, Yes Midline tongue present, Yes Symmetric palate elevation present and Yes Ability to bilaterally elevate shoulders present Cognition (Neuro): normal cognition Gait exam (Neuro): Normal gait present Motor exam (neuro): 5/5 motor strength present throughout and Normal motor muscle tone present throughout Deep tendon reflexes (DTR's): Right triceps reflex intensity grade: 3+, Left triceps reflex intensity grade: 3+, Rt Biceps (C5, C6): 3+, Left biceps reflex intensity grade: 3+, Right brachioradialis reflex intensity grade: 3+, Left brachioradialis reflex intensity grade: 3+, Right patellar reflex intensity grade: 3+, Left patellar reflex intensity grade: 3+, Right ankle reflex intensity grade: 3+ and Left ankle reflex intensity grade: 3+ Coordination: [id number] test normal Assessment & Plan Assessment & Plan (1) Tremor: Comment: exaggerated physiological, essential tremors Code(s): R25.1 - Tremor, unspecified Category: Medical (2) Cerebral atrophy: Comment: On CT brain and hyperreflexia Code(s): G31.9 - Degenerative disease of nervous system, unspecified Category: Medical (3) Syphilis (acquired): Comment: Titer still same and no ocular or otic symptoms 1:8 Code(s): A53.9 - Syphilis, unspecified Category: Medical (4) Migraine: Code(s): G43.909 - Migraine, unspecified, not intractable, without status migrainosus Category: Medical Qualifiers: Migraine type: migraine (< 15 days per month) with aura Status migrainosus presence: without status migrainosus Intractability: not intractable Qualified Code(s): G43.109 - Migraine with aura, not intractable, without status migrainosus Plan His tremors are mild and does not affect his ADLS. I will monitor him clinically Discussed MRI results - atrophy could be related to syphilis ( sees ID Dr. Lizett Lee)- on Penicillin I will trial him sumatriptan 50mg as needed for migraine- he was prescribed last visit but did not get it. Ondansetron 4mg as needed for severe nausea Magnesium 400mg qhs and vit B2 400mg qam Medications: New sumatriptan succinate take 1 tab at onset of headache; if no relief may repeat 1 tab after at least 2 hrs; max = 4 tabs/24 hr PO 14 tabs 6RF ondansetron HCl 4 mg PO Q8H PRN 14 tabs 6RF nausea and vomiting Discontinued cephalexin Discontinued Reason: Patient no longer taking 500 mg PO BID 14 caps 0RF doxycycline hyclate Discontinued Reason: Patient no longer taking 100 mg PO BID 14 caps 0RF doxycycline hyclate Discontinued Reason: Patient no longer taking 100 mg PO BID 30 days 60 caps 2RF Coding Level of Care Code Est Pt Level 4 (59048) Complex EM visit Add On G2211 Diagnoses Tremor R25.1 Cerebral atrophy G31.9 Syphilis (acquired) A53.9 Migraine with aura and without status migrainosus, not intractable G43.109 Migraine type: migraine (< 15 days per month) with aura Status migrainosus presence: without status migrainosus Intractability: not intractable
[2024-10-04 07:38] VITALS: BP 124/72; PULSE 61; O2SAT 100; BMI 21.5
== END 2024-10-04 08:16 | disposition home or self-care (01) ==
LOC: HO.HSMS 07:32
PROVIDERS: PCP Family Medicine; Visit Provider Psychiatry & Neurology Neurology
DX: R25.1 Tremor, unspecified (principal); G31.9 Degenerative disease of nervous system, unspecified; A53.9 Syphilis, unspecified; G43.109 Migraine with aura, not intractable, without status migrainosus
CPT/HCPCS: 99214; G2211

== ENCOUNTER → 2024-10-04 07:32 | Outpatient (BNVA) | payer OTHER, SELFPAY | PROVIDERS: PCP Family Medicine; Visit Provider Psychiatry & Neurology Neurology | DX: G43.109 Migraine with aura, not intractable, without status migrainosus (principal); A53.9 Syphilis, unspecified; G31.9 Degenerative disease of nervous system, unspecified; R25.1 Tremor, unspecified | CPT/HCPCS: 99212 ==

== ENCOUNTER 2024-11-30 14:19 | Outpatient (REF) | payer OTHER, SELFPAY ==
--- OUTSIDE RECORDS SUMMARY | 2024-11-30 14:56 | XMS_ITS | Encounter Summary ---
Author Organization [employer] Address [address] [facility] [address] [place] [address] Care Team Providers Care Program Advisor Name Role Phone Unavailable Primary Care Provider Unavailabl e Encounter Details Date Type Department Care Team (Late st Contact Info) Description 11/27/[address] [facility] ADULT DENTAL [address] [place] [address] Fly, Brittney [address] [place] [address] Social History Tobacco Use Types Packs/Day Years [...]
[2024-11-30 16:17] LABS: Appearance Urine Turbid; Glucose Urine UA Negative (Negative); PH 8.5 (5.0-9.0); Specific Gravity - Urine 1.020 (1.005-1.025)
[2024-12-01 06:46] LABS: HIV Num 1 0.07 S/CO (0.00-0.99)
[2024-12-01 13:55] LABS: Rapid Plasma Reagin Ab Titer 1:8
== END 2024-11-30 14:20 | disposition home or self-care (01) ==
LOC: HO.WFDLDS 14:19
PROVIDERS: Referring Provider Nurse Practitioner Family; Visit Provider Internal Medicine
DX: Z00.00 Encounter for general adult medical examination without abnormal findings (principal); Z29.81 Encounter for HIV pre-exposure prophylaxis; R53.83 Other fatigue; J30.2 Other seasonal allergic rhinitis; F32.A Depression, unspecified
CPT/HCPCS: 36415; 81003; 86592; 86593; 87389

== ENCOUNTER 2024-12-02 08:21 | Outpatient (AMB) | payer OTHER, SELFPAY ==
--- OUTSIDE RECORDS SUMMARY | 2024-12-02 08:27 | XMS_ITS | Encounter Summary ---
Author Organization [employer] Address [address] [facility] [address] [place] [address] Care Team Providers Care Pupil Personnel Worker Name Role Phone Unavailable Primary Care Provider Unavailabl e Encounter Details Date Type Department Care Team (Late st Contact Info) Description 11/27/2022 Abstract [facility] ADULT DENTAL [address] [place] [address] Fly, Brittney [address] [place] [address] Social History Tobacco Use Types Packs/Day Years [...]
--- NOTE | 2024-12-02 09:07 | A.OFFPC_ITS ---
Vital Signs 12/02/24 09:10 Height 5 ft 10 in Weight 165 lb BMI 23.7 BP 104/60 Blood Pressure Location Lt brachial Position Sitting Respiration 14 Pulse 60 Pulse Source Pulse Oximeter Temp 97.9 F Temp Source Oral Pulse Oximetry (%) 98 Oxygen Delivery Method Room Air Intake Visit Reasons: CPE with f/u labs and health maint. Intake Note: patient is scheduled for cpe and follow up labs Bundle Tier And Labeler Required: No Allergies No Known Allergies Allergy (Verified 12/02/24 09:08) Medication List - Last Reconciled 12/02/24 by Darvin Jimenez MD cholecalciferol (vitamin D3) 25 mcg PO DAILY 90 days emtricitabine-tenofovir alafen 200-25 mg (Descovy) 1 tab PO DAILY 30 days magnesium oxide 400 mg PO BEDTIME ondansetron HCl 4 mg PO Q8H PRN riboflavin (vitamin B2) 400 mg PO QAM sumatriptan succinate take 1 tab at onset of headache; if no relief may repeat 1 tab after at least 2 hrs; max = 4 tabs/24 hr PO Tobacco use date assessed: 12/02/24 Dental Screening Dental Screen Date: 12/02/24 Did you have a dental visit in the last 12 months?: Yes Did you have a dental problem in the last 6 months where you did not have access to dental care?: No Was dental information given to patient?: Patient has dentist HPI CPE with f/u labs and health maint. HPI Details 29 y/o male presents for a CPE with f/u labs. No recent labs to review. Continues to f/u with Neurology for tremors. Cerebral atrophy on CT brain and hyperreflexia. They note this could be related to syphilis. He sees ID Dr. Lizett Lee and is on penicillin for this. Reports GERD. HPI Comments History of Present Illness Details Documentation assistance for Darvin Jimenez MD, was provided by Franko Powell, Sales Representative [employer] on 12/02/2024 at 9:22 AM ANDERS. Lu, Dr. Jimenez, have read, observed, and verified documentation. [facility] Medical History Migraine Cerebral atrophy Encounter for pre-exposure prophylaxis for HIV No pertinent past medical history Surgical History Hx of colonoscopy History of esophagogastroduodenoscopy (EGD) History of sleeve gastrectomy Family History Mother High blood pressure Father High blood pressure Diabetes Maternal Grandmother High blood pressure High cholesterol Paternal Grandmother High blood pressure High cholesterol Maternal Grandfather High blood pressure High cholesterol Cardiovascular disease Paternal Grandfather High blood pressure High cholesterol Social History Household Members: Friend(s) Housing: House Alcohol intake: never Patient Tobacco Use Status: Never used Tobacco e-Cigarette/Vaping Use: Never Used Second Hand Smoke Exposure: No service: No Current occupational status: employed 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 1. Little interest or pleasure in doing things: not at all 2. Feeling down, depressed, or hopeless: not at all 3. Trouble falling or staying asleep, or sleeping too much: several days 4. Feeling tired or having little energy: several days 5. Poor appetite or overeating: several days 6. Feeling bad about yourself - or that you are a failure or have let yourself or your family down: not at all 7. Trouble concentrating on things, such as reading the newspaper or watching television: not at all 8. Moving or speaking so slowly that other people could have noticed. Or the opposite - being so fidgety or restless that you have been moving around a lot more than usual: not at all 9. Thoughts that you would be better off or of hurting yourself in some way: not at all Total score: 3 Depression Screening Interpretation: Negative Depression Screening Done: Yes 57219 - PHQ-9 Billing: Yes Source: Developed by Drs. Jacques Cleaning, Lavonne Colon, Marquis Black and colleagues, with an educational mario from [employer]. Thrive Questionnaire Date Thrive assessed: 09/01/23 I am a: Patient What is your living situation today?: I have a steady place to live Within the past 12 months, did the food you bought not last and you didn't have the money to get more?: Never true Within the past 12 months, did you worry whether your food would run out before you got money to buy more?: Never true Do you have trouble paying for medicines?: I choose not to answer this question Do you have trouble getting transportation to medical appointments?: No Do you have trouble paying your heating and electricity bill?: No Do you have trouble taking care of your child, family member or friend?: I choose not to answer this question Do you have trouble with day-to-day activities such as bathing, preparing meals, shopping, managing finances, etc.?: No Are you currently unemployed and looking for a job?: No Are you interested in more education?: Yes Please select the resources that you would like help with: None Currently or been in a relationship where the following occur: No concerns reported THRIVE Score: 0 AUDIT C Alcohol Use Questionnaire (AUDIT-C) 1. How often do you have a drink containing alcohol?: Never Total Score: 0 CARO-7 AMB Questionnaire CARO-7 Date CARO - 7 assessed: 12/02/24 Feeling nervous, anxious, or on edge: 1 = Several days Not being able to stop or control worryin = Not at all Worrying too much about different things: 1 = Several days Trouble relaxin = Not at all Being so restless that it is hard to sit still: 0 = Not at all Becoming easily annoyed or irritable: 0 = Not at all Feeling afraid as if something awful might happen: 0 = Not at all Total CARO-7 score (0-4 normal; 5-9 mild; 10-14 moderate; 15-21 severe): 2 Source: Developed by Drs. Jacques Cleaning, Lavonne Colon, Marquis Blcak and colleagues, with an educational mario from [employer]. CARO-7 Assessment Billing CARO-7 Assessment Tool: CARO-7 Assessment 74806 Review of Systems Const Denies chills, Denies fatigue, Denies fever(s), Denies headache(s) and Denies weakness Eyes Denies change in vision ENT Denies dizziness, Denies headache(s), Denies hearing loss, Denies nasal congestion, Denies sinus pain, Denies sinus pressure and Denies sore throat Card Denies chest pain, Denies lightheadedness, Denies dyspnea and Denies other (palpitations) Resp Denies cough, Denies dyspnea and Denies wheezing GI Denies abdominal pain, Denies melena, Denies hematochezia, Denies change in bowel habits, Denies dyspepsia and Denies nausea Denies hematuria and Denies dysuria Musc Denies abnormal gait, Denies myalgias, Denies arthralgias, Denies numbness and Denies tingling Skin/Breast Denies rash, Denies unusual bruising and Denies wounds Neuro Denies abnormal gait, Denies dizziness, Denies headache(s), Denies memory loss, Denies numbness, Denies Sensory deficit (Neuro), Denies tingling and Denies weakness Psych Denies anxiety, Denies depression and Denies memory loss Endo Denies cold intolerance, Denies fatigue, Denies heat intolerance, Denies polydipsia and Denies polyuria Denis/Lymph Denies easy bleeding and Denies easy bruising Aller/Immun Denies wheezing Physical exam (Primary Care) Vital Signs: Last Vital Signs Temp 97.9 F 12/02/24 09:10 Pulse 60 12/02/24 09:10 Resp 14 12/02/24 09:10 BP 104/60 12/02/24 09:10 Pulse Ox 98 12/02/24 09:10 Oxygen Delivery Method Room Air 12/02/24 09:10 BMI result Body Mass Index 23.7 Tobacco/Smoking Status: Tobacco use Status Tobacco use date assessed 12/02/24 12/02/24 09:14 Patient Tobacco Use Status Never used Tobacco 12/02/24 09:14 e-Cigarette/Vaping Use Never Used 12/02/24 09:14 PHQ-9: PHQ-9 Score PHQ-9: Total score 3 12/02/24 09:22 Depression Screening Interpretation: Negative Thrive Assessment: Date of Thrive Assessment Date Thrive assessed 09/01/23 12/02/24 09:14 Currently or been in a relationship where the following occur: No concerns reported Const General: no acute distress, well developed, alert and awake Nutritional Appearance: well nourished Orientation/consciousness: patient oriented x3 HENMT Head: Yes normocephalic and Yes atraumatic Ears: hearing grossly normal bilaterally and TM's normal bilaterally General nose exam: Normal external nose present and Normal nares present Mouth: Normal oral and palatal mucosa present and moist mucous membranes Teeth and gingiva: dentition normal Throat: Yes posterior oropharynx normal Eyes General: appearance normal, both eyes and all related structures Pupils: Equal, round and reactive pupils present and Pupil accommodation reflex normal EOM: EOMs intact bilaterally Neck Neck: Yes normal visual inspection, Yes no lymphadenopathy and Yes trachea midline Thyroid: Thyroid normal Carotids: no bruits Lymphatic: no lymphadenopathy noted Chest Chest palpation & inspection: normal inspection of the chest Resp Effort & Inspection: normal respiratory effort Auscultation: clear to auscultation bilaterally Cardio Rate: regular rate Rhythm: regular rhythm Heart sounds: S1 normal heart sound present, S2 normal heart sound present, no gallops, no murmurs and no rubs Bruits: no abdominal aortic bruits and no carotid bruits GI Palpation (GI): No Abdominal aortic bruit present, Soft to palpation, nontender, No hepatosplenomegaly present and No Rebound tenderness present Auscultation: normal bowel sounds General: Yes no CVA tenderness Back/Spine/Pelvis Back: no CVA tenderness Cervical Spine: cervical ROM normal and No Cervical spine tenderness Thoracic/Lumbar Spine: thoraco-lumbar ROM normal, No pain with thoraco-lumbar ROM, No thoracic spinal tenderness and No lumbar spinal tenderness Skin Lesions: no lesions Rashes: no rashes Trauma: no lacerations or abrasions Wounds: no wounds Nails: normal Neuro General: patient oriented x3 Cranial nerves: Yes Equal, round and reactive pupils present Cognition (Neuro): normal cognition Gait exam (Neuro): Normal gait present Motor exam (neuro): 5/5 motor strength present throughout Sensory Exam: No Sensory deficit (Neuro) Deep tendon reflexes (DTR's): Right patellar reflex intensity grade: 2+ and Left patellar reflex intensity grade: 2+ Extrem General: Yes normal to inspection and No edema Psych Appearance: grossly normal Affect: normal affect Attitude: cooperative Thought process: Normal thought process present Coding Level of Care Code Est Pt Level 4 (44139) Diagnoses Syphilis (acquired) A53.9 Cerebral atrophy G31.9 Tremor R25.1 GERD (gastroesophageal reflux disease) K21.9 Adult general medical exam Z00.00 Additional Codes CARO-7 Assessment Billing - CARO-7 Assessment Tool: CARO-7 Assessment 18700 ([id number]) PHQ-9 - 03984 - PHQ-9 Billing: Yes ([id number]) Assessment & Plan Assessment & Plan (1) Syphilis (acquired): Comment: Titer still same and no ocular or otic symptoms 1:8 Code(s): A53.9 - Syphilis, unspecified Category: Medical (2) Cerebral atrophy: Comment: On CT brain and hyperreflexia Code(s): G31.9 - Degenerative disease of nervous system, unspecified Category: Medical (3) Tremor: Comment: exaggerated physiological, essential tremors Code(s): R25.1 - Tremor, unspecified Category: Medical (4) GERD (gastroesophageal reflux disease): Code(s): K21.9 - Gastro-esophageal reflux disease without esophagitis Category: Medical (5) Adult general medical exam: Code(s): Z00.00 - Encounter for general adult medical examination without abnormal findings Category: Medical Plan: 29-year-old male presents for an extended exam Encouraged healthy diet with active lifestyle and plenty of exercise Plan History syphilis and treated either anxious disease Currently stable Follow-up with disease recommended Exam today is essentially within limits. Minimal, almost represent tremor Patient notes GERD/dyspepsia and will try omeprazole. He requests a referral to [facility] which I have made today. Will also check H pylori stool test Orders: Orders Complete Blood Count Auto Diff Today Z00.00 - Encounter for general adult medical examination without abnormal findings Microalbumin, Random (w Creat) Today I10 - Essential (primary) hypertension Vitamin B12 and Folate Today E53.8 - Deficiency of other specified B group vitamins Comprehensive [place]. Panel Fast Today Z00.00 - Encounter for general adult medical examination without abnormal findings Lipid Panel Today Z00.00 - Encounter for general adult medical examination without abnormal findings TSH reflex Free T4 Today Z00.00 - Encounter for general adult medical examination without abnormal findings UA CC w/rflx Micro + Cult Today Z00.00 - Encounter for general adult medical examination without abnormal findings H pylori Ag Stool Today R10.13 - Epigastric pain Referrals Gastroenterology Referral B19.20 - Unspecified viral hepatitis C without hepatic coma, K21.9 - Gastro-esophageal reflux disease without esophagitis, R10.13 - Epigastric pain Medications: New omeprazole 20 mg PO DAILY 30 caps 3RF 30 days
[2024-12-02 09:10] VITALS: BP 104/60; PULSE 60; RESP 14; TEMP 36.6; O2SAT 98; BMI 23.7
== END 2024-12-02 09:44 | disposition home or self-care (01) ==
LOC: HO.HMCFM 08:22
PROVIDERS: PCP Family Medicine; Visit Provider Family Medicine
DX: A53.9 Syphilis, unspecified (principal); G31.9 Degenerative disease of nervous system, unspecified; R25.1 Tremor, unspecified; K21.9 Gastro-esophageal reflux disease without esophagitis; Z00.00 Encounter for general adult medical examination without abnormal findings

== ENCOUNTER → 2024-12-02 08:21 | Outpatient (BNVA) | payer OTHER, SELFPAY | PROVIDERS: PCP Family Medicine; Visit Provider Family Medicine | DX: Z00.00 Encounter for general adult medical examination without abnormal findings (principal); K21.9 Gastro-esophageal reflux disease without esophagitis; A53.9 Syphilis, unspecified; G31.9 Degenerative disease of nervous system, unspecified; R25.1 Tremor, unspecified; E53.8 Deficiency of other specified B group vitamins; R10.13 Epigastric pain; B19.20 Unspecified viral hepatitis C without hepatic coma | CPT/HCPCS: 96127; 99212 ==

== ENCOUNTER 2024-12-02 09:49 | Outpatient (REF) | payer OTHER, SELFPAY ==
[2024-12-02 11:27] LABS: MANUAL DIFF FLAG NO
[2024-12-02 11:28] LABS: Appearance Urine Clear; Glucose Urine UA Negative (Negative); PH 5.5 (5.0-9.0); Specific Gravity - Urine >= 1.030 (1.005-1.025); UMIC TRIGGER UACC YES
[2024-12-02 11:45] LABS: Hematocrit 42.5 % (42.0-52.0); Hemoglobin 14.1 g/dl (14.0-18.0); Imm Gran Abs Auto 0.02 X10*3/uL (0.00-0.03); Imm Gran Pct Auto 0.3 % (0.0-0.4); Lymphocytes Absolute Auto 2.2 X10*3/uL (1.2-4.9); Mean Corpuscular HGB Conc 33.2 g/dl (31.0-36.0); Mean Corpuscular Hemoglobin 27.8 pg (27.0-33.0); Mean Corpuscular Volume 83.7 fL (80.0-98.0); NRBC Abs Auto 0.000 X10*3/uL (0.0-0.012); NRBC Pct Auto 0.0 /100WBC (0.0-0.2); Platelet Count 275 X10*3/uL (160-400); Red Blood Count 5.08 X10*6/uL (4.60-5.80); White Blood Count 7.1 X10*3/uL (4.8-10.8)
[2024-12-02 12:10] LABS: Microalbum/Creatinine Ratio Ur 3.6 ug/mg cr (<30)
[2024-12-02 12:24] LABS: Alanine Aminotransferase 11 U/L (0-40); Albumin Level 4.7 g/dL (3.5-5.0); Alkaline Phosphatase 57 U/L (39-117); Anion Gap 11 (12-20); Aspartate Amino Transferase 20 U/L (5-37); Blood Urea Nitrogen 11 mg/dL (9-16); Calcium 9.9 mg/dL (8.4-10.2); Carbon Dioxide 31 mmol/L (22-29); Chloride 102 mmol/L (96-108); Cholesterol 153 mg/dL (<200); Estimated Glomerular Filt Rate > 60; HDL Cholesterol 60 mg/dL (>40); Potassium 3.9 mmol/L (3.3-5.1); Sodium 140 mmol/L (135-145); Total Protein 7.7 g/dL (6.5-8.0); Triglycerides 58 mg/dL (<150)
[2024-12-02 12:43] LABS: Folate 8.4 ng/mL (> or = 4.0); Vitamin B12 524 pg/mL (200-900)
== END 2024-12-02 09:50 | disposition home or self-care (01) ==
LOC: HO.WFDLDS 09:49
PROVIDERS: Visit Provider Family Medicine
DX: Z00.00 Encounter for general adult medical examination without abnormal findings (principal); I10 Essential (primary) hypertension; E53.8 Deficiency of other specified B group vitamins
CPT/HCPCS: 36415; 80053; 80061; 81001; 82043; 82570; 82607; 82746; 84443; 85025

== ENCOUNTER → 2024-12-23 08:48 | Outpatient (AMB) | payer OTHER, SELFPAY ==
--- NOTE | 2024-12-23 08:41 | A.OFFPC_ITS ---
Intake Visit Reasons: fu labs Intake Note: patient is scheduled to review labs with pcp Radio Tower Technician Required: No Allergies No Known Allergies Allergy (Verified 12/23/24 08:42) Medication List - Last Reconciled 12/23/24 by Darvin Jimenez MD cholecalciferol (vitamin D3) 25 mcg PO DAILY 90 days emtricitabine-tenofovir alafen 200-25 mg (Descovy) 1 tab PO DAILY 30 days magnesium oxide 400 mg PO BEDTIME omeprazole 20 mg PO DAILY 30 days ondansetron HCl 4 mg PO Q8H PRN riboflavin (vitamin B2) 400 mg PO QAM sumatriptan succinate take 1 tab at onset of headache; if no relief may repeat 1 tab after at least 2 hrs; max = 4 tabs/24 hr PO Tobacco use date assessed: 12/02/24 Dental Screening Dental Screen Date: 12/02/24 HPI fu labs HPI Details 29 y/o male presents to f/u labs via tel emed. Labs drawn 12/02/24. Reviewed labs with pt. Triglycerides 58. TC 153. LDL 82. HDL 60. Moderate blood in urine. PFSH Medical History Migraine Cerebral atrophy Encounter for pre-exposure prophylaxis for HIV No pertinent past medical history Surgical History Hx of colonoscopy History of esophagogastroduodenoscopy (EGD) History of sleeve gastrectomy Family History Mother High blood pressure Father High blood pressure Diabetes Maternal Grandmother High blood pressure High cholesterol Paternal Grandmother High blood pressure High cholesterol Maternal Grandfather High blood pressure High cholesterol Cardiovascular disease Paternal Grandfather High blood pressure High cholesterol Social History Household Members: Friend(s) Housing: House 75 years or older and lives alone: No Alcohol intake: never Patient Tobacco Use Status: Never used Tobacco e-Cigarette/Vaping Use: Never Used Second Hand Smoke Exposure: No service: No Current occupational status: employed 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 Jacques Cleaning, Lavonne Colon, Marquis Black and colleagues, with an educational mario from [employer] Physical exam (Primary Care) Tobacco/Smoking Status: Tobacco use Status Tobacco use date assessed 12/02/24 12/23/24 08:43 Patient Tobacco Use Status Never used Tobacco 12/23/24 08:43 e-Cigarette/Vaping Use Never Used 12/23/24 08:43 Thrive Assessment: Date of Thrive Assessment Date Thrive assessed 09/01/23 12/23/24 08:43 Telehealth Telehealth Telehealth Platform: Telephone Location of provider rendering services: practice address Location of patient: address on file Patient Identification confirmed using: Name, : Yes Telehealth method: voice only Patient verbally consented to treatment: Yes Patient verbally consented to billing insurance company: Yes Patient informed of any privacy concerns related to visit: Yes Minutes spent on Phone/Video with Pt.: 4 Coding Level of Care Code Tele Est Pt Level 2 (54391) Diagnoses Hematuria R31.9 Assessment & Plan Assessment & Plan (1) Hematuria: Code(s): R31.9 - Hematuria, unspecified Category: Medical Plan: Ongoing of microscopic hematuria Patient is asymptomatic Will check urine studies again and a dedicated renal ultrasound. Prior CT scan of abdomen pelvis did note a cyst in left kidney. Orders: Orders Urine Cytology Today R31.9 - Hematuria, unspecified US renal BI Today R31.9 - Hematuria, unspecified UA CC w/rflx Micro + Cult Today R31.9 - Hematuria, unspecified, Z00.00 - Encoun ter for general adult medical examination without abnormal findings
--- OUTSIDE RECORDS SUMMARY | 2024-12-23 08:59 | XMS_ITS | Encounter Summary ---
Author Organization [facility] Address [address] [place] [phone] Care Team Providers Care Merchandise Marker Name Role Phone Darvin Jimenez MD Primary Care Provider Reason for Visit * Reason Onset Date Comments Appointment 12/02/2024 Encounter Details Date Type Department Care Team (Late st Contact Info) Description 12/02/2024 Telephone Gastroenterology - [place] [address] [place] [phone] Fauzia Baker MD 175 [facility] [address] [place] [address] [phone] Appointment Social History Tobacco Use Types Packs/Day Years Used Date Smoking Tobacco: Never Assessed Sex and Gender Information Value Date Recorded Sex Assigned at Not on file Legal Sex Male 10:56 AM EDT Gender Identity Not on file Sexual Orientation Not on file documented as of this encounter Progress Notes * Michelle Jones - 12/02/2024 11:07 AM EDT Records revived from [facility] in [place] for a consult for Gastro-esophageal reflux disease without esophagitis epigastric pain // unspecific viral hepatitis C without hepatic coma. LVMTCB and schedule.Consult reach out log filled out and placed in bin. documented in this encounter Plan of Treatment Upcoming Encounters Date Type Department Care Team (Late st Contact Info) Description 03/03/2025 1:50 PM EDT Consult Gastroenterology - [place] [address] [place] [phone] Fauzia Baker MD [address] [place] [phone] documented as of this encounter Visit Diagnoses Not on filedocumented in this encounter Care Teams Merchandise Marker Relationship Specialty Start Date End Date Darvin Jimenez MD [address] [place] [address] Dr Sain[address] [place] MD PCP - General Family Medicine 12/02/24 documented as of this encounter
--- OUTSIDE RECORDS SUMMARY | 2024-12-23 08:59 | XMS_ITS | Encounter Summary ---
Author Organization [employer] Address 75 [facility] 7t [place] [address] Care Team Providers Care Steel Fixer Name Role Phone Unavailable Primary Care Provider Unavailabl e Encounter Details Date Type Department Care Team (Late st Contact Info) Description 11/27/2022 Abstract [facility] [address] [place] [address] Fly, Brittney [address] [place] [address] Social History Tobacco Use Types Packs/Day Years [...]
== END ==
LOC: HO.HMCFM 08:48
PROVIDERS: PCP Family Medicine; Visit Provider Family Medicine
DX: R31.9 Hematuria, unspecified (principal)

== ENCOUNTER 2025-01-25 13:42 | Outpatient (AMB) | payer OTHER, SELFPAY ==
[2025-01-25 13:59] VITALS: BP 122/70; PULSE 74; O2SAT 98; BMI 23.5
--- NOTE | 2025-01-25 13:59 | A.OFFVIS_ITS ---
Vital Signs 01/25/25 13:59 Height 5 ft 10 in Weight 164 lb BMI 23.5 BP 122/70 Pulse 74 Pulse Oximetry (%) 98 Intake Visit Reasons: syphillis Allergies No Known Allergies Allergy (Verified 01/25/25 14:00) HPI HPI syphillis: Details: He has been doing well. He has no complaints. HIV tests have been negative and syphilis had confirmatory positive in past but now low level titer,no symptoms. [facility] Medical History Migraine Cerebral atrophy Encounter for pre-exposure prophylaxis for HIV No pertinent past medical history Surgical History Hx of colonoscopy History of esophagogastroduodenoscopy (EGD) History of sleeve gastrectomy Family History Mother High blood pressure Father High blood pressure Diabetes Maternal Grandmother High blood pressure High cholesterol Paternal Grandmother High blood pressure High cholesterol Maternal Grandfather High blood pressure High cholesterol Cardiovascular disease Paternal Grandfather High blood pressure High cholesterol Social History Household Members: Friend(s) Housing: House 75 years or older and lives alone: No Alcohol intake: never Patient Tobacco Use Status: Never used Tobacco e-Cigarette/Vaping Use: Never Used Second Hand Smoke Exposure: No service: No Current occupational status: employed 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 Current occupational exposures/hazards: No Sexual orientation: Unable to collect Gender identity: Unable to collect Cognitive needs: No Hearing needs: No Vision needs: No Review of Systems Const All systems reviewed & are unremarkable except as noted in HPI and below Physical Exam Vital Signs: Last Vital Signs Pulse 74 01/25/25 13:59 BP 122/70 01/25/25 13:59 Pulse Ox 98 01/25/25 13:59 BMI result Body Mass Index 23.5 Const General: cooperative Orientation/consciousness: patient oriented x3 HEENT Head: Yes normal to inspection Mouth: Normal oral and palatal mucosa present Eyes General: appearance normal, both eyes and all related structures Pupils: Equal, round and reactive pupils present Resp Effort & Inspection: normal respiratory effort Cardio Rate: regular rate Rhythm: regular rhythm GI Palpation (GI): Soft to palpation and nontender General: Yes no CVA tenderness Back/Spine/Pelvis Back: no CVA tenderness Skin General skin exam: no rashes or lesions noted Neuro General: patient oriented x3 Cranial nerves: Yes CN's II-XII intact bilaterally and Yes Equal, round and reactive pupils present Extrem General: Yes normal to inspection Psych Appearance: grossly normal Assessment & Plan Assessment & Plan (1) Encounter for pre-exposure prophylaxis for HIV: Comment: Continue Descovy and renewed today 30 d and 2 refill. No syphilis concerns at this time. Code(s): Z29.81 - Encounter for HIV pre-exposure prophylaxis Category: Medical Plan: n/a Orders: Orders HIV Ab/Ag Today A53.9 - Syphilis, unspecified, Z29.81 - Encounter for HIV pre- exposure prophylaxis Coding Level of Care Code Est Pt Level 3 (58942) Diagnoses Encounter for pre-exposure prophylaxis for HIV Z29.81
--- OUTSIDE RECORDS SUMMARY | 2025-01-25 15:51 | XMS_ITS | Clinical Summary ---
Author Organization [address] [place] [address] Address [address] [place] [address] Phone Care Team Providers Care Medical Office Asst Name Role Phone Darvin Jimenez MD Primary Care Provider Encounters Date Type Department Care Team Description 12/02/2024 Telephone Gastroenterology [facility] [address] [phone] Fauzia Baker MD from Last 3 Months Social History Tobacco Use Types Packs/Day Years Used Date Smoking Tobacco: Never Assessed Sex and Gender Information Value Date Recorded Sex Assigned at Not on file Legal Sex Male 10:56 AM EDT Gender Identity Not on file Sexual Orientation Not on file Plan of Treatment Upcoming Encounters Date Type Department Care Team ([facility] st Contact Info) Description 03/03/2025 1:50 PM EDT [facility] [address] [phone] Fauzia Baker MD [address] [place] [phone] Health Maintenance Due Date Last Done Comments DTaP,Tdap,and Td Vaccines (1 - Tdap) 2016 Hepatitis B Vaccines (1 of 3 - 19+ 3-dose series) 2016 COVID-19 Vaccine ( - 2023-2 5 season) 2024 Depression Screening 05/25/2024 HIV Screening 12/02/2024 Hepatitis C Screening 12/02/2024 Social Influencers of Health Screening 12/02/2024 Influenza Vaccine (#1) 2025 HIB Vaccines Aged Out No longer eligi [...] on patient's age to complete this topic MMR Vaccines Aged Out No longer eligi ble based on patient's age to complete this topic Meningococcal ACWY Vaccine Aged Out N o longer eligible based on patient's age to complete this topic Meningococcal B Vaccine Aged Out No l onger eligible based on patient's age to complete this topic Pneumococcal Vaccine: Pediat rics (0 to 5 Years) and At-Risk Patients (6 to 49 Years) Aged Out No longer eligible b ased on patient's age to complete this topic RSV Immunization Patients Un fabio 20 months Aged Out No longer eligible b ased on patient's age to complete this topic Varicella Vaccines Aged Out No longer eligible based on patient's age to complete this topic Insurance [facility] Care Teams Medical Office Asst Relationship Specialty Start Date End Date Darvin Jimenez MD [address] [place] [address] Dr Solomon [place] PCP - General Family Medicine 12/02/24
--- OUTSIDE RECORDS SUMMARY | 2025-01-25 15:51 | XMS_ITS | Encounter Summary ---
Author Organization [employer] Address 75 [facility] 7t [place] [address] Care Team Providers Care Automation Engineer Name Role Phone Unavailable Primary Care Provider Unavailabl e Encounter Details Date Type Department Care Team (Late st Contact Info) Description 12/03/2022 Abstract [facility] [address] [place] [address] Fly, Brittney [address] [place] [address] Social History Tobacco Use Types Packs/Day Years [...]
--- OUTSIDE RECORDS SUMMARY | 2025-01-25 15:51 | XMS_ITS | Encounter Summary ---
Author Organization [employer] Address 75 [facility] 7t [place] [address] Care Team Providers Care Fire Operations Forester Name Role Phone Unavailable Primary Care Provider Unavailabl e Encounter Details Date Type Department Care Team (Late st Contact Info) Description 11/27/2022 Abstract [facility] [address] [place] [address] Fly, Brittney [address] [place] [address] Social History Tobacco Use Types Packs/Day Years [...]
--- OUTSIDE RECORDS SUMMARY | 2025-01-25 15:51 | XMS_ITS | Clinical Summary ---
Author Organization [employer] Address [address] [place] [address] 7t [place] [address] Care Team Providers Care Waste Water Plant Operator Name Role Phone Unavailable Primary Care [...] 1997 HIV Screening 1997 SDOH Screening 1997 Disability Screening 1997 Alcohol/Substance Use Screening 2009 Family Planning (PISQ) 2012 HPV Vaccines (1 - Male 3-dos e series) 2012 Hepatitis C Screening 2015 DTaP/Tdap/Td Vaccines (1 - Tdap) 2016 Hepatitis B Vaccines (1 of 3 - 19+ 3-dose series) 2016 Dental Oral Exam 05/09/2023 11/06/2022 Dental Prophylaxis 05/24/2023 11/21/2022 Dental X-Ray: Bitewings 11/08/2023 11/07/19 23, 10/09/2022 COVID-19 Vaccine (4 - 2023-2 5 season) 2024 04/12/2021, 10/10/2020, 09/12/2020 Tobacco Screening 03/25/2024 03/25/2023 Influenza Vaccine (#1) 2025 Dental X-Ray: Full Mouth 11/07/2025 11/06/2022 Zoster [...] Years) and At-Risk Patients (6 to 49) Years Aged Out No longer eligible b ased [...] Most Recently Relevant to Health Maintenance Insurance [facility] [employer] [place]
== END 2025-01-25 14:48 | disposition home or self-care (01) ==
LOC: HO.HID 13:42
PROVIDERS: PCP Family Medicine; Visit Provider Internal Medicine
DX: Z29.81 Encounter for HIV pre-exposure prophylaxis (principal)
CPT/HCPCS: 99213

== ENCOUNTER → 2025-01-25 13:42 | Outpatient (BNVA) | payer OTHER, SELFPAY | PROVIDERS: PCP Family Medicine; Visit Provider Internal Medicine | DX: Z29.81 Encounter for HIV pre-exposure prophylaxis (principal) | CPT/HCPCS: 99212 ==

== ENCOUNTER 2025-02-14 15:14 | Outpatient (AMB) | payer OTHER, SELFPAY ==
--- NOTE | 2025-02-14 15:31 | A.OFFPC_ITS ---
Vital Signs 02/14/25 15:33 Height 5 ft 10 in Weight 156 lb 4 oz BMI 22.4 BP 110/68 Blood Pressure Location Rt brachial Position Sitting Respiration 14 Pulse 80 Pulse Source Pulse Oximeter Temp 98.2 F Temp Source Temporal Artery Scan Pulse Oximetry (%) 98 Oxygen Delivery Method Room Air Intake Visit Reasons: Neurology referral Intake Note: Frankie presents in the office today for a neurology referral. Allergies No Known Allergies Allergy (Verified 02/14/25 15:32) Tobacco use date assessed: 02/14/25 Dental Screening Dental Screen Date: 02/14/25 Did you have a dental visit in the last 12 months?: Yes Did you have a dental problem in the last 6 months where you did not have access to dental care?: No Was dental information given to patient?: Patient has dentist HPI Neurology referral HPI Details 29 y/o male presents today to request a neurology referral. Has an upcoming ultrasound for hematuria. Hx of tremor and cerebral atrophy. [facility] Medical History Migraine Cerebral atrophy Encounter for pre-exposure prophylaxis for HIV No pertinent past medical history Surgical History Hx of colonoscopy History of esophagogastroduodenoscopy (EGD) History of sleeve gastrectomy Family History Mother High blood pressure Father High blood pressure Diabetes Maternal Grandmother High blood pressure High cholesterol Paternal Grandmother High blood pressure High cholesterol Maternal Grandfather High blood pressure High cholesterol Cardiovascular disease Paternal Grandfather High blood pressure High cholesterol Social History (Updated 02/14/25 @ 15:33 by Lizett Jaramillo CMA) Household Members: Friend(s) Housing: House 75 years or older and lives alone: No Alcohol intake: never Patient Tobacco Use Status: Never used Tobacco e-Cigarette/Vaping Use: Never Used Second Hand Smoke Exposure: No Use of substances other than those prescribed or required for medical reasons: No service: No Current occupational status: employed 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 Current occupational exposures/hazards: No Sexual orientation: Unable to collect Gender identity: Unable to collect Cognitive needs: No Hearing needs: No Vision needs: No Questionnaire Thrive Questionnaire Date Thrive assessed: 12/02/24 I am a: Patient What is your living situation today?: I have a steady place to live Within the past 12 months, did the food you bought not last and you didn't have the money to get more?: Never true Within the past 12 months, did you worry whether your food would run out before you got money to buy more?: Never true Do you have trouble paying for medicines?: I choose not to answer this question Do you have trouble getting transportation to medical appointments?: No Do you have trouble paying your heating and electricity bill?: No Do you have trouble taking care of your child, family member or friend?: I choose not to answer this question Do you have trouble with day-to-day activities such as bathing, preparing meals, shopping, managing finances, etc.?: No Are you currently unemployed and looking for a job?: No Are you interested in more education?: Yes Please select the resources that you would like help with: None Currently or been in a relationship where the following occur: No concerns reported THRIVE Score: 0 AUDIT C Alcohol Use Questionnaire (AUDIT-C) 3. How often do you have six or more drinks on one occasion?: Never Total Score: 0 CARO-7 AMB Questionnaire CARO-7 Date CARO - 7 assessed: 12/02/24 Source: Developed by Drs. Jacques Cleaning, Lavonne Colon, Marquis Black and colleagues, with an educational mario from [employer]. Review of Systems Const Denies chills, Denies fatigue, Denies fever(s), Denies headache(s) and Denies weakness ENT Denies dizziness and Denies headache(s) Card Denies dyspnea Resp Denies cough, Denies dyspnea, Denies wheezing and Denies other (shortness of breath) Musc Denies numbness and Denies tingling Neuro Denies dizziness, Denies headache(s), Denies numbness, Denies tingling and Denies weakness Psych Denies anxiety and Denies depression Endo Denies fatigue Aller/Immun Denies wheezing Physical exam (Primary Care) Vital Signs: Last Vital Signs Temp 98.2 F 02/14/25 15:33 Pulse 80 02/14/25 15:33 Resp 14 02/14/25 15:33 BP 110/68 02/14/25 15:33 Pulse Ox 98 02/14/25 15:33 Oxygen Delivery Method Room Air 02/14/25 15:33 BMI result Body Mass Index 22.4 Tobacco/Smoking Status: Tobacco use Status Tobacco use date assessed 02/14/25 02/14/25 15:36 Patient Tobacco Use Status Never used Tobacco 02/14/25 15:36 e-Cigarette/Vaping Use Never Used 02/14/25 15:36 Thrive Assessment: Date of Thrive Assessment Date Thrive assessed 12/02/24 02/14/25 15:36 Currently or been in a relationship where the following occur: No concerns reported Const General: well developed; No acute distress Nutritional Appearance: well nourished Orientation/consciousness: patient oriented x3 HENMT Head: Yes normocephalic and Yes atraumatic Eyes General: appearance normal, both eyes and all related structures Pupils: Equal, round and reactive pupils present EOM: EOMs intact bilaterally Resp Effort & Inspection: normal respiratory effort Neuro General: patient oriented x3 and gait normal Cranial nerves: Yes Equal, round and reactive pupils present Psych Affect: normal affect Coding Level of Care Code Est Pt Level 3 (74302) Diagnoses Tremor R25.1 Cerebral atrophy G31.9 Assessment & Plan Assessment & Plan (1) Tremor: Comment: exaggerated physiological, essential tremors Code(s): R25.1 - Tremor, unspecified Category: Medical (2) Cerebral atrophy: Comment: On CT brain and hyperreflexia Code(s): G31.9 - Degenerative disease of nervous system, unspecified Category: Medical Plan Following up regarding tremors and MRI showing cerebral atrophy Has seen neurology in per neurology note: His tremors are mild and does not affect his ADLS. I will monitor him clinically Discussed MRI results - atrophy could be related to syphilis ( sees ID Dr. Lizett Lee)- on Penicillin Patient has been researching a neurologist at [facility] and would like to be seen now for a 2nd opinion. Referral is made Orders: Referrals Neurology Referral G31.9 - Degenerative disease of nervous system, unspecified, R25.1 - Tremor, unspecified
[2025-02-14 15:33] VITALS: BP 110/68; PULSE 80; RESP 14; TEMP 36.8; O2SAT 98; BMI 22.4
--- OUTSIDE RECORDS SUMMARY | 2025-02-14 18:12 | XMS_ITS | Clinical Summary ---
Author Organization [employer] Address [address] [place] [address] 7t [place] [address] Care Team Providers Care Station Supervisor Name Role Phone Unavailable Primary Care [...] Dental X-Ray: Bitewings 11/08/2023 11/07/19 23, 10/09/2022 Tobacco Screening 03/25/2024 03/25/2023 COVID-19 Vaccine (4 - 2024-2 6 season) 2025 04/12/2021, 10/10/2020, 09/12/2020 Influenza Vaccine (#1) 2025 Dental X-Ray: Full [...]
--- OUTSIDE RECORDS SUMMARY | 2025-02-14 18:12 | XMS_ITS | Encounter Summary ---
Author Organization [email or web address] Address 75 [facility] 7t [place] [address] Care Team Providers Care Travel Information Center Supervisor Name Role Phone Unavailable Primary Care Provider Unavailabl e Encounter Details Date Type Department Care Team (Late st Contact Info) Description 12/03/2022 Abstract [facility] [address] [place] [address] Fly, Brittney [address] [place] [address] Social History Tobacco Use Types Packs/Day Years [...]
--- OUTSIDE RECORDS SUMMARY | 2025-02-14 18:12 | XMS_ITS | Encounter Summary ---
Author Organization [employer] Address 75 [facility] 7t [place] [address] Care Team Providers Care Zinc Miner Name Role Phone Unavailable Primary Care Provider Unavailabl e Encounter Details Date Type Department Care Team (Late st Contact Info) Description 11/27/2022 Abstract [facility] [address] [place] [address] Fly, Brittney [address] [place] [address] Social History Tobacco Use Types Packs/Day Years [...]
--- OUTSIDE RECORDS SUMMARY | 2025-02-14 18:12 | XMS_ITS | Clinical Summary ---
Author Organization 175 [facility] Address [address] [place] [address] Phone Care Team Providers Care Skin Carver Name Role Phone Darvin Jimenez MD Primary Care Provider [phone] Encounters Date Type Department Care Team Description 12/02/[address] [facility] [address] [phone] Fauzia Baker MD from Last 3 Months Social History Tobacco Use Types Packs/Day Years Used Date Smoking Tobacco: Never Assessed Sex and Gender Information Value Date Recorded Sex Assigned at Not on file Legal Sex Male 10:56 AM EDT Gender Identity Not on file Sexual Orientation Not on file Plan of Treatment Upcoming Encounters Date Type Department Care Team ([facility] st Contact Info) Description 03/03/2025 1:50 PM [facility] [address] [phone] Fauzia Baker MD [address] [address] Health Maintenance Due Date Last Done Comments DTaP,Tdap,and Td Vaccines (1 - Tdap) 2016 Hepatitis B Vaccines (1 of 3 - 19+ 3-dose series) 2016 Depression Screening 05/25/2024 HIV Screening 12/02/2024 Hepatitis C Screening 12/02/2024 Social Influencers of Health Screening 12/02/2024 COVID-19 Vaccine (1 - 2023-2 5 season) 2025 Influenza Vaccine (#1) 2025 RSV Immunization Adult Patie nts (1 - 1-dose 75+ series) 2072 HIB [...] patient's age to complete this topic Insurance [facility] Care Teams Skin Carver Relationship Specialty Start Date End Date Darvin Jimenez MD [address] [place] [address] Dr Solomon [place] PCP - General Family Medicine 12/02/24
== END 2025-02-14 16:48 | disposition home or self-care (01) ==
LOC: HO.HMCFM 15:15
PROVIDERS: PCP Family Medicine; Visit Provider Family Medicine
DX: R25.1 Tremor, unspecified (principal); G31.9 Degenerative disease of nervous system, unspecified

== ENCOUNTER → 2025-02-14 15:14 | Outpatient (BNVA) | payer OTHER, SELFPAY | PROVIDERS: PCP Family Medicine; Visit Provider Family Medicine | DX: R25.1 Tremor, unspecified (principal); G31.9 Degenerative disease of nervous system, unspecified | CPT/HCPCS: 99212 ==

== ENCOUNTER 2025-02-20 10:01 | Outpatient (REF) | payer OTHER, SELFPAY ==
--- NOTE | ~2025-02-20 | US_ITS ---
CLINICAL HISTORY: R31.9 - Hematuria, unspecified US renal Comparison: 08/26/2023 Findings: Right kidney 10.5 cm length. No significant focal abnormality. Left kidney 10.4 cm length. No significant focal abnormality. Small lower pole cysts noted. No bilateral hydronephrosis. Normal bilateral renal echogenicity. Impression: No significant abnormalities. This document has been electronically signed by: Charles Juan MD on 02/20/2025 21:11:58
--- OUTSIDE RECORDS SUMMARY | 2025-02-20 11:07 | XMS_ITS | Clinical Summary ---
Author Organization [employer] Address [address] [place] [address] 7[address] [place] [address] Care Team Providers Care Custom Feed Mill Operator Helper Name Role Phone Unavailable Primary Care Provider [...]
--- OUTSIDE RECORDS SUMMARY | 2025-02-20 11:07 | XMS_ITS | Encounter Summary ---
Author Organization [employer] Address 75 [facility] 7t [place] [address] Care Team Providers Care Novelty Maker Name Role Phone Unavailable Primary Care Provider Unavailabl e Encounter Details Date Type Department Care Team (Late st Contact Info) Description 11/27/[address] [facility] ADULT DENTAL [address] [place] [address] Fly, Brittney [address] [place] [address] Social History Tobacco Use Types Packs/Day Years [...]
--- OUTSIDE RECORDS SUMMARY | 2025-02-20 11:07 | XMS_ITS | Encounter Summary ---
Author Organization [employer] Address 75 [facility] 7t [place] [address] Care Team Providers Care Auto Air Conditioning Mechanic Name Role Phone Unavailable Primary Care Provider Unavailabl e Encounter Details Date Type Department Care Team (Late st Contact Info) Description 12/03/2022 Abstract [facility] ADULT DENTAL [address] [place] [address] Fly, Brittney [address] [place] [address] Social History Tobacco Use Types Packs/Day Years [...]
--- OUTSIDE RECORDS SUMMARY | 2025-02-20 11:09 | XMS_ITS | Clinical Summary ---
Author Organization 175 [facility] Address 175 [place] [address] Phone Care Team Providers Care Vp Strategic Partnerships Name Role Phone Darvin Jimenez MD Primary Care Provider Encounters Date Type Department Care Team Description 12/02/2024 Telephone Gastroenterology [facility] [address] [address] Fauzia Baker MD from Last 3 Months Social History Tobacco Use Types Packs/Day Years Used Date Smoking Tobacco: Never Assessed Sex and Gender Information Value Date Recorded Sex Assigned at Not on file Legal Sex Male 10:56 AM EDT Gender Identity Not on file Sexual Orientation Not on file Plan of Treatment Upcoming Encounters Date Type Department Care Team ([facility] st Contact Info) Description 03/03/2025 1:50 PM EDT [facility] [address] [address] Fauzia Baker MD [address] [address] Health Maintenance Due Date Last Done Comments DTaP,Tdap,and Td Vaccines (1 - Tdap) 2016 Hepatitis B Vaccines (1 of 3 - 19+ 3-dose series) 2016 HPV Vaccines (1 - 3-dose SCD M series) 2024 Depression Screening 05/25/2024 HIV Screening 12/02/2024 Hepatitis C Screening 12/02/2024 Social Influencers of Health Screening 12/02/2024 COVID-19 Vaccine ( - 2023-2 5 season) 2025 Influenza Vaccine [...] patient's age to complete this topic Insurance [facility] Care Teams Vp Strategic Partnerships Relationship Specialty Start Date End Date Darvin Jimenez MD [address] [place] [address] Dr Solomon [place] PCP - General Family Medicine 12/02/24
== END 2025-02-20 10:02 | disposition home or self-care (01) ==
LOC: HO.US 10:01
PROVIDERS: PCP Family Medicine; Visit Provider Family Medicine
DX: R31.9 Hematuria, unspecified (principal)
CPT/HCPCS: 76775

== ENCOUNTER → 2025-02-20 10:05 | Outpatient (BNV) | payer OTHER, SELFPAY | PROVIDERS: PCP Family Medicine; Visit Provider Radiology Diagnostic Radiology | DX: R31.9 Hematuria, unspecified (principal) | CPT/HCPCS: 76775 ==

== ENCOUNTER 2025-04-06 07:21 | Outpatient (AMB) | payer OTHER, SELFPAY ==
--- OUTSIDE RECORDS SUMMARY | 2025-04-06 07:24 | XMS_ITS | Clinical Summary ---
Author Organization [employer] Address [address] [place] [address] 7t [place] [address] Care Team Providers Care Account Consultant Name Role Phone Unavailable Primary Care Provider [...]
--- OUTSIDE RECORDS SUMMARY | 2025-04-06 07:24 | XMS_ITS | Encounter Summary ---
Author Organization [employer] Address 75 [facility] 7t [place] [address] Care Team Providers Care Case Management Coordinator Name Role Phone Unavailable Primary Care Provider Unavailabl e Encounter Details Date Type Department Care Team (Late st Contact Info) Description 12/03/2022 Abstract [facility] ADULT DENTAL [address] [place] [address] Fly, Brittney [address] [place] [address] Social History Tobacco Use Types Packs/Day Years [...]
--- OUTSIDE RECORDS SUMMARY | 2025-04-06 07:24 | XMS_ITS | Clinical Summary ---
Author Organization 175 [facility] Address 175 [place] [address] Phone Care Team Providers Care Director Of Sleep Name Role Phone Darvin Jimenez MD Primary Care Provider Allergies No known active allergies Medications magnesium oxide 400 mg magnesium capsule Take 1 capsule by mouth. at bedtime 4 Active omeprazole (PriLOSEC) [address] capsule 5 Active ondansetron (ZOFRAN) 4 mg tablet take 1 tablet orally every 8 hours as needed for nausea and vomiting 5 Active SUMAtriptan (IMITREX) 50 mg tablet TAKE 1 TAB AT ONSET OF HEADACHE MAY REPEAT ONCE AFTER 2 HOURS IF NO RELIEF-MAX 4 TAB/24HR 5 Active Descovy 200-25 mg per tablet Take 1 tablet by mouth 1 (one) time each day. 5 Active cholecalciferol (Vitamin D3) 25 mcg (1,000 unit) tablet Take 1 tablet (1,000 Units total) by mouth 1 (one) time each day. Active amoxicillin (AMOXIL) 500 mg capsule Take 1 capsule (500 mg total) by mouth 2 (two) times a day for 14 days. 28 each 5 03/19/20 25 metroNIDAZOLE (FLAGYL) 500 mg tablet Take 1 tablet (500 mg total) by mouth 3 (three) times a day for 14 days. Do not use mouth wash or consume alcohol until 48 hours after last dose 42 each 5 03/19/20 25 clarithromycin (BIAXIN) 500 mg tablet Take 1 tablet (500 mg total) by mouth 2 (two) times a day for 14 days. 28 each 5 03/19/20 25 omeprazole (PriLOSEC) [address] capsule Take 1 capsule (40 mg total) by mouth 1 (one) time each day for 14 days. Do not crush or chew. 14 each 5 03/19/20 25 Encounters Date Type Department Care Team Description 03/03/2025 1:50 PM EDT Consult Gastroenterology - [place] 175 [facility] 175 [facility] [address] [place] [address] Fauzia Baker MD Dyspepsia (Primary Dx); H/O gastric sleeve from Last 3 Months Surgical History Surgery Date Site/Laterality Comments SLEEVE GASTROPLASTY 05/25/2019 - 05/24/2020 Medical History Medical History Date Comments Gallbladder polyp Family History Medical History Relation Name Comments helicobacter Cousin gastric cancer Father's Sister Relation Name Status Comments Cousin Other Father's Sister Alive Social History Tobacco Use Types Packs/Day Years [...] on file Sexual Orientation Not on file Obstetrics History Last Filed Vital Signs Vital Sign Reading Time Taken Comments Blood Pressure 138/70 03/03/2025 1:48 PM EDT Pulse 79 03/03/2025 1:48 PM EDT Temperature - - Respiratory Rate - - Oxygen Saturation 98% 03/03/2025 1:48 PM EDT Inhaled Oxygen Concentration - - Weight 72.7 kg (160 lb 3.2 oz) 03/03/2025 1:48 P M EDT Height 177.8 cm (5' 10 ) 03/03/2025 1:48 PM EDT Body Mass Index 22.99 03/03/2025 1:48 PM EDT Plan of Treatment Health Maintenance Due Date Last Done Comments DTaP,Tdap,and Td Vaccines (4 - Td or Tdap) 07/09/2019 07/09/2009, 1997, 1997, Additional history exists HPV Vaccines (1 - 3-dose SCDM series) 2024 Depression Screening 05/25/2024 HIV Screening 12/02/2024 Hepatitis C Screening 12/02/2024 Social Influencers of Health Screening 12/02/2024 COVID-19 Vaccine ( season) 2025 04/12/2021, 10/10/2020, 09/12/2020 Influenza Vaccine (#1) 2025 07/09/2009 RSV Immunization Adult Patients (1 - 1-dose 75+ series) 2072 IPV Vaccines Completed 07/09/2009, 09/22, 1997, Additional history exists MMR Vaccines Completed 07/09/2009, 02/19/1998 Meningococcal ACWY Vaccine Completed 02/29/2016 Hepatitis B Vaccines Completed 02/26/2024, 09/23/2023, 08/26/2023, Additional history exists HIB Vaccines Aged Out No longer eligi [...] 49 Years) Aged Out No longer eligible based on patient's age to complete this topic RSV Immunization Patients Under 20 months Aged Out No longer eligible based on patient's age to complete this topic Varicella Vaccines Aged Out No longer eligible based on patient's age to complete this topic Procedures Procedure Name Priority Date/Time Associated Diagnosis Comments HELICOBACTER PYLORI BREATH TEST Routine 03/03/2025 3:24 PM EDT Dyspepsia from Last 3 Months Results * (ABNORMAL) Helicobacter pylori breath test (03/03/2025 3:24 PM EDT) H Pylori Breath Test Positive( A) Negative LAB CHEMISTRY METHOD 03/04/2025 7:06 AM EDT [facility] ([facility] Breath Oral cavity structure / Unknown Non-blood Collection / Unknown 03/03/2025 3:24 PM EDT 03/03/2025 3:24 PM EDT us Fauzia Baker MD LAB BODY FLUIDS AND STOOLS ORDERABLES Final Result [facility] [address] [place] [address], [place] [phone] from Last 3 Months Insurance [facility] [place] [address] Care Teams Director Of Sleep Relationship Specialty Start Date End Date Darvin Jimenez MD [address] [place] [address] Dr [place] PCP - General Family Medicine 12/02/24
--- OUTSIDE RECORDS SUMMARY | 2025-04-06 07:24 | XMS_ITS | Encounter Summary ---
Author Organization [employer] Address 75 [facility] 7t [place] [address] Care Team Providers Care Aurist Name Role Phone Unavailable Primary Care Provider Unavailabl e Encounter Details Date Type Department Care Team (Late st Contact Info) Description 11/27/2022 Abstract [facility] ADULT DENTAL [address] [place] [address] Fly, Brittney [address] [place] [address] Social History Tobacco Use Types Packs/Day Years [...]
[2025-04-06 07:39] VITALS: BP 110/70; PULSE 64; O2SAT 98; BMI 23.3
--- NOTE | 2025-04-06 07:39 | A.OFFVIS_ITS ---
Vital Signs 04/06/25 07:39 Height 5 ft 10 in Weight 162 lb 6 oz BMI 23.3 BP 110/70 Blood Pressure Location Rt brachial Position Sitting Pulse 64 Pulse Source Pulse Oximeter Pulse Oximetry (%) 98 Oxygen Delivery Method Room Air Intake Visit Reasons: 6 mo follow up (CONF.) Intake Note: Follow up Cerebral atrophy, tremor, migraine and syphilis Assistant Director Of Public Works Required: No Accompanied by: Self / Same As Patient Allergies No Known Allergies Allergy (Verified 04/06/25 07:39) Medication List - Last Reconciled 04/06/25 by Zoey Foster MD cholecalciferol (vitamin D3) 25 mcg PO DAILY 90 days emtricitabine-tenofovir alafen 200-25 mg (Descovy) 1 tab PO DAILY magnesium oxide 400 mg PO BEDTIME omeprazole 20 mg PO DAILY 30 days ondansetron HCl 4 mg PO Q8H PRN propranolol 10 mg PO TID PRN riboflavin (vitamin B2) 400 mg PO QAM sumatriptan succinate take 1 tab at onset of headache; if no relief may repeat 1 tab after at least 2 hrs; max = 4 tabs/24 hr PO HPI Comments Details: 29y/o right handed male comes for follow up of tremors and cerebral atrophy.His tremors are mild - socially embarrassed . He is good with all ADLs occasional difficulty while holding a cup.It worsens with stress Headaches have resolved. He is on Riboflavin and magnesium and sumatriptan as needed. Mood- he is irritable Previous history 10/16-He completed treatment for syhilis now.He follows up with ID Repeat MRI shows moderate atrophy. He reports headaches since age 21. It is unitemporal , light and noise sensitivity , nausea. No aura. It can last 2hrs -24hrs ( usually on rainy days ) He has 1 day a week. Magnesium and riboflavin did not decrease his headaches. Tylenol and ibuprofen does not help. He takes excedrin migraine - does not help.He started having hand tremors more than 10 years ago . The tremors are mostly postural, worse with stress .He denies voice tremors or head tremors.He denies family h/o tremors, head injury .No exposure to psychiatric medications in the past . He was born full term but his mother had C section due to HTN.he denies any delayed milestones. He graduated and has a Masters in CS-Keys studies- [employer] [place]. He has mild anxiety - seen by a psychologist.No panic attacks. He was seen by a neurologist in [place] . His CT brain showed atrophy .He was given escitalopram 10mg , sulurid ( antipsyhcotic) and propranolol 1/2 tab 50mg qd.He took the medications for 6 mths - helped a little.He did not like the side effects. His tremors does not affect his ADLs, or affect him socially.He denies any speech or gait difficulties . [facility] Medical History Migraine Cerebral atrophy Encounter for pre-exposure prophylaxis for HIV No pertinent past medical history Surgical History Hx of colonoscopy History of esophagogastroduodenoscopy (EGD) History of sleeve gastrectomy Family History Mother High blood pressure Father High blood pressure Diabetes Maternal Grandmother High blood pressure High cholesterol Paternal Grandmother High blood pressure High cholesterol Maternal Grandfather High blood pressure High cholesterol Cardiovascular disease Paternal Grandfather High blood pressure High cholesterol Social History Household Members: Friend(s) Housing: House 75 years or older and lives alone: No Alcohol intake: never Patient Tobacco Use Status: Never used Tobacco e-Cigarette/Vaping Use: Never Used Second Hand Smoke Exposure: No service: No Current occupational status: employed 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 Current occupational exposures/hazards: No Sexual orientation: Unable to collect Gender identity: Unable to collect Cognitive needs: No Hearing needs: No Vision needs: No Physical Exam Vital Signs: Last Vital Signs Pulse 64 04/06/25 07:39 BP 110/70 04/06/25 07:39 Pulse Ox 98 04/06/25 07:39 Oxygen Delivery Method Room Air 04/06/25 07:39 BMI result Body Mass Index 23.3 Const General: cooperative, healthy appearing and comfortable Nutritional Appearance: average body habitus Orientation/consciousness: patient oriented x3 Eyes Pupils: Equal, round and reactive pupils present Neuro Other: very mild tremors hands General: patient oriented x3, gait normal, tone normal, moves all extremities and no focal motor deficits Cranial nerves: Yes Facial sensation intact/muscles of mastication intact, Yes Equal, round and reactive pupils present, Yes Bilaterally intact EOM present, Yes Nystagmus not present, Yes Normal facial strength present, Yes Midline tongue present, Yes Symmetric palate elevation present and Yes Ability to bilaterally elevate shoulders present Cognition (Neuro): normal cognition Gait exam (Neuro): Normal gait present Motor exam (neuro): 5/5 motor strength present throughout and Normal motor muscle tone present throughout Deep tendon reflexes (DTR's): Right triceps reflex intensity grade: 3+, Left triceps reflex intensity grade: 3+, Rt Biceps (C5, C6): 3+, Left biceps reflex intensity grade: 3+, Right brachioradialis reflex intensity grade: 3+, Left brachioradialis reflex intensity grade: 3+, Right patellar reflex intensity grade: 3+, Left patellar reflex intensity grade: 3+, Right ankle reflex intens ity grade: 3+ and Left ankle reflex intensity grade: 3+ Coordination: [id number] test normal Assessment & Plan Assessment & Plan (1) Tremor: Comment: exaggerated physiological, essential tremors Code(s): R25.1 - Tremor, unspecified Category: Medical (2) Cerebral atrophy: Comment: On CT brain and hyperreflexia Code(s): G31.9 - Degenerative disease of nervous system, unspecified Category: Medical (3) Syphilis (acquired): Comment: Titer still same and no ocular or otic symptoms 1:8 Code(s): A53.9 - Syphilis, unspecified Category: Medical (4) Migraine: Comment: better with B2 and magnesium Code(s): G43.909 - Migraine, unspecified, not intractable, without status migrainosus Category: Medical Qualifiers: Migraine type: migraine (< 15 days per month) with aura Status migrainosus presence: without status migrainosus Intractability: not intractable Qualified Code(s): G43.109 - Migraine with aura, not intractable, without status migrainosus Plan His tremors are mild and does not affect his ADLS. I will trial him on propranolol 10 mg tid as needed Discussed MRI results - atrophy could be related to syphilis ( sees ID Dr. Lizett Lee) sumatriptan 50mg as needed for migraine- he was prescribed last visit but did not get it. Ondansetron 4mg as needed for severe nausea Magnesium 400mg qhs and vit B2 400mg qam Medications: New propranolol 10 mg PO TID PRN 90 tabs 6RF tremors Coding Level of Care Code Est Pt Level 4 (24083) Complex EM visit Add On G2211 Diagnoses Tremor R25.1 Cerebral atrophy G31.9 Syphilis (acquired) A53.9 Migraine with aura and without status migrainosus, not intractable G43.109 Migraine type: migraine (< 15 days per month) with aura Status migrainosus presence: without status migrainosus Intractability: not intractable
== END 2025-04-06 08:24 | disposition home or self-care (01) ==
LOC: HO.HSMS 07:22
PROVIDERS: PCP Family Medicine; Visit Provider Psychiatry & Neurology Neurology
DX: R25.1 Tremor, unspecified (principal); G31.9 Degenerative disease of nervous system, unspecified; A53.9 Syphilis, unspecified; G43.109 Migraine with aura, not intractable, without status migrainosus
CPT/HCPCS: 99214

== ENCOUNTER → 2025-04-06 07:21 | Outpatient (BNVA) | payer OTHER, SELFPAY | PROVIDERS: PCP Family Medicine; Visit Provider Psychiatry & Neurology Neurology | DX: G43.109 Migraine with aura, not intractable, without status migrainosus (principal); R25.1 Tremor, unspecified; G31.9 Degenerative disease of nervous system, unspecified; A53.9 Syphilis, unspecified | CPT/HCPCS: 99212 ==

== ENCOUNTER 2025-04-26 12:26 | Outpatient (REF) | payer OTHER, SELFPAY ==
--- OUTSIDE RECORDS SUMMARY | 2025-04-26 14:45 | XMS_ITS | Clinical Summary ---
Author Organization [address] [place] [address] Address 175 [place] [address] Phone Care Team Providers Care Seat Joiner Chainstitch Name Role Phone Darvin Jimenez MD Primary Care Provider Allergies No known active allergies Medications magnesium oxide 400 mg magnesium capsule Take 1 capsule by mouth. at bedtime 05/24/2024 Active omeprazole (PriLOSEC) [address] capsule 02/27/2025 Activ e ondansetron (ZOFRAN) 4 mg tablet take 1 tablet orally every 8 hours as needed for nausea and vomiting 10/04/2024 Active SUMAtriptan (IMITREX) 50 mg tablet TAKE 1 TAB AT ONSET OF HEADACHE MAY REPEAT ONCE AFTER 2 HOURS IF NO RELIEF-MAX 4 TAB/24HR 10/04/2024 Active Descovy 200-25 mg per tablet Take 1 tablet by mouth 1 (one) time each day. 09/28/2024 Active cholecalciferol (Vitamin D3) 25 mcg (1,000 unit) tablet Take 1 tablet (1,000 Units total) by mouth 1 (one) time each day. Active Encounters Date Type Department Care Team Description 03/03/2025 1:50 PM EDT Consult Gastroenterology - [place] [address] [place] [phone] Fauzia Baker MD Dyspepsia (Primary Dx); [...] METHOD 03/04/2025 7:06 AM EDT [facility] Breath Oral cavity structure / Unknown Non-blood Collection / Unknown 03/03/2025 3:24 PM EDT 03/03/2025 3:24 PM EDT Fauzia Baker MD LAB BODY FLUIDS AND STOOLS ORDERABLES Final Result [facility] [address] [place] [address], from Last 3 Months Insurance [facility] Care Teams Seat Joiner Chainstitch Relationship Specialty Start Date End Date Darvin Jimenez MD [address] [place] [address] Dr Solomon [place] PCP - General Family Medicine 12/02/24
--- OUTSIDE RECORDS SUMMARY | 2025-04-26 14:45 | XMS_ITS | Encounter Summary ---
Author Organization [employer] Address 75 [facility] 7t [place] [address] Care Team Providers Care Upscale Security Officer Name Role Phone Unavailable Primary Care Provider Unavailabl e Encounter Details Date Type Department Care Team (Late st Contact Info) Description 12/03/2022 Abstract [facility] ADULT DENTAL [address] [place] [address] Fly, Brittney [address] [place] [address] Social History Tobacco Use Types Packs/Day Years [...]
--- OUTSIDE RECORDS SUMMARY | 2025-04-26 14:45 | XMS_ITS | Clinical Summary ---
Author Organization [employer] Address [address] [place] [address] 7t [place] [address] Care Team Providers Care Seconds Handler Name Role Phone Unavailable Primary Care Provider [...]
--- OUTSIDE RECORDS SUMMARY | 2025-04-26 14:45 | XMS_ITS | Encounter Summary ---
Author Organization [employer] Address 75 [facility] 7t [place] [address] Care Team Providers Care County Historian Name Role Phone Unavailable Primary Care Provider Unavailabl e Encounter Details Date Type Department Care Team (Late st Contact Info) Description 11/27/2022 Abstract [facility] ADULT DENTAL [address] [place] [address] Fly, Brittney [address] [place] [address] Social History Tobacco Use Types Packs/Day Years [...]
[2025-04-27 07:05] LABS: HIV Num 1 0.08 S/CO (0.00-0.99)
== END 2025-04-26 12:27 | disposition home or self-care (01) ==
LOC: HO.LAB 12:26
PROVIDERS: PCP Family Medicine; Visit Provider Internal Medicine
DX: Z29.81 Encounter for HIV pre-exposure prophylaxis (principal); A53.9 Syphilis, unspecified
CPT/HCPCS: 36415; 87389

== ENCOUNTER 2025-05-05 09:04 | Outpatient (AMB) | payer OTHER, SELFPAY ==
[2025-05-05 09:46] VITALS: BP 110/60; PULSE 78; O2SAT 98
--- NOTE | 2025-05-05 09:46 | A.OFFVIS_ITS ---
Vital Signs 05/05/25 09:46 BP 110/60 Pulse 78 Pulse Oximetry (%) 98 Intake Visit Reasons: 3 month Allergies No Known Allergies Allergy (Verified 05/05/25 09:46) HPI HPI 3 month: Details: He has been taking Descovy for Prep because he was concerned about Truvada effect on bone density and kidney function. He has no complaints PFSH Medical History Migraine Cerebral atrophy Encounter for pre-exposure prophylaxis for HIV No pertinent past medical history Surgical History Hx of colonoscopy History of esophagogastroduodenoscopy (EGD) History of sleeve gastrectomy Family History Mother High blood pressure Father High blood pressure Diabetes Maternal Grandmother High blood pressure High cholesterol Paternal Grandmother High blood pressure High cholesterol Maternal Grandfather High blood pressure High cholesterol Cardiovascular disease Paternal Grandfather High blood pressure High cholesterol Social History Household Members: Friend(s) Housing: House 75 years or older and lives alone: No Alcohol intake: never Patient Tobacco Use Status: Never used Tobacco e-Cigarette/Vaping Use: Never Used Second Hand Smoke Exposure: No service: No Current occupational status: employed Current occupation: [employer] Current occupational exposures/hazards: No Sexual orientation: Unable to collect Gender identity: Unable to collect Cognitive needs: No Hearing needs: No Vision needs: No Review of Systems Const All systems reviewed & are unremarkable except as noted in HPI and below Physical Exam Vital Signs: Last Vital Signs Pulse 78 05/05/25 09:46 BP 110/60 05/05/25 09:46 Pulse Ox 98 05/05/25 09:46 Const General: cooperative HEENT Head: Yes normal to inspection Face and sinus: Yes normal facial exam Mouth: Normal oral and palatal mucosa present Teeth and gingiva: dentition normal Eyes General: appearance normal, both eyes and all related structures Pupils: Equal, round and reactive pupils present Resp Effort & Inspection: normal respiratory effort Cardio Rate: regular rate Rhythm: regular rhythm GI Palpation (GI): Soft to palpation and nontender General: Yes no CVA tenderness Back/Spine/Pelvis Back: no CVA tenderness Skin General skin exam: no rashes or lesions noted Neuro General: moves all extremities Cranial nerves: Yes Equal, round and reactive pupils present Extrem General: Yes normal to inspection Psych Appearance: grossly normal Assessment & Plan Assessment & Plan (1) Encounter for pre-exposure prophylaxis for HIV: Comment: Continue Descovy and renewed today 30 d and 2 refill. No syphilis concerns at this time. Code(s): - Encounter for HIV pre-exposure prophylaxis Category: Medical Plan: See as scheduled after labs for review. PA for Descovy Orders: Orders HIV Ab/Ag 4 Months - Encounter for HIV pre-exposure prophylaxis RPR Monitor reflex titer 4 Months - Encounter for HIV pre-exposure prophylaxis Medications: Changed From emtricitabine-tenofovir alafen 200-25 mg 1 tab PO DAILY To emtricitabine-tenofovir alafen 200-25 mg (Descovy) 1 tab PO DAILY 30 tabs 3RF 30 days Coding Level of Care Code Est Pt Level 3 (16630) Diagnoses Encounter for pre-exposure prophylaxis for HIV
== END 2025-05-05 09:52 | disposition home or self-care (01) ==
LOC: HO.HID 09:04
PROVIDERS: PCP Family Medicine; Visit Provider Internal Medicine
DX: Z29.81 Encounter for HIV pre-exposure prophylaxis (principal)
CPT/HCPCS: 99213

== ENCOUNTER → 2025-05-05 09:04 | Outpatient (BNVA) | payer OTHER, SELFPAY | PROVIDERS: PCP Family Medicine; Visit Provider Internal Medicine | DX: Z29.81 Encounter for HIV pre-exposure prophylaxis (principal) | CPT/HCPCS: 99212 ==